=== PATIENT | female | born 1940 | race Caucasian/White ===

== ENCOUNTER → 2023-09-17 13:31 | Outpatient (REF) | payer MEDICARE, SELFPAY | LOC: HWRAD 13:31 | PROVIDERS: ATTENDING PHYSICIAN Family Medicine | DX: K43.9 Ventral hernia without obstruction or gangrene (principal) | CPT/HCPCS: 74176 ==

== ENCOUNTER → 2023-10-01 15:18 | Outpatient (REF) | payer MEDICARE, SELFPAY ==
[2023-10-01 16:52] LABS: % Basophils 0.9 % (0-2); % Eosinophils 3.8 % (0-6); % Immature Granulocytes 0.4 % (0-0.5); % Lymphocytes 13.8 % (20.5-51.1); % Monocytes 9.8 % (1.7-9.3); % Neutrophils 71.3 % (42.2-75.2); Absolute Basophils 0.1 10^3/uL (0-0.2); Absolute Eosinophils 0.4 10^3/uL (0-0.7); Absolute Lymphocytes 1.3 10^3/uL (1.2-3.4); Absolute Monocytes 0.9 10^3/uL (0.1-0.6); Absolute Neutrophils 6.5 10^3/uL (1.4-6.5); Hemoglobin 7.5 g/dL (12.0-16.0); Mean Corpuscular Hgb 21.7 pg (27.0-31.0); Mean Corpuscular Volume 72.3 fL (81.0-99.0); Mean Platelet Volume 8.6 fL (7.4-10.4); Nucleated Red Blood Cells % 0 %; Platelet Count 518 10^3/uL (130-400); Red Blood Cell Count 3.46 10^6/uL (4.20-5.40); Red Cell Dist. Width 16.4 % (11.5-14.5); White Blood Cell Count 9.2 10^3/uL (4.8-10.8)
[2023-10-01 17:02] LABS: Erythrocyte Sed Rate 1 mm/hour (0-20)
[2023-10-01 17:06] LABS: ALT (SGPT) 12 U/L (0-35); AST (SGOT) 21 U/L (14-36); Albumin 3.9 g/dl (3.5-5.0); Alkaline Phosphatase 68 U/L (38-126); Blood Urea Nitrogen 14 mg/dl (7-17); Calcium 9.3 mg/dl (8.4-10.2); Carbon Dioxide 31 mmol/L (22-30); Chloride 97 mmol/L (98-107); Glucose 78 mg/dl (70-99); Lipase 250 U/L (23-300); Potassium 4.1 mmol/L (3.5-5.1); Sodium 133 mmol/L (135-145); Total Bilirubin 0.1 mg/dl (0.2-1.3); Total Protein 6.4 g/dl (6.3-8.2); eGFR > 60.00
[2023-10-01 17:15] LABS: PT 16.2 Sec (11.4-14.6)
[2023-10-01 17:36] LABS: TSH 2.34 uIU/ml (0.47-4.68)
== END ==
LOC: REG 15:18
PROVIDERS: ATTENDING PHYSICIAN Family Medicine
DX: R10.84 Generalized abdominal pain (principal); R53.83 Other fatigue
CPT/HCPCS: 36415; 80053; 83690; 84443; 85025; 85610; 85652

== ENCOUNTER 2023-10-09 17:59 | Inpatient (IN) | payer MEDICARE, SELFPAY ==
[2023-10-09] VITALS (7 sets, daily range): BP systolic 124–162; BP diastolic 50–82; BMI 23.9
[2023-10-09 15:14] LABS: PT 15.3 Sec (11.4-14.6)
[2023-10-09 15:15] LABS: APTT 28.2 Sec (23.4-35.0)
[2023-10-09 15:20] LABS: % Basophils 0.9 % (0-2); % Eosinophils 2.2 % (0-6); % Immature Granulocytes 0.3 % (0-0.5); % Lymphocytes 10.8 % (20.5-51.1); % Monocytes 8.3 % (1.7-9.3); % Neutrophils 77.7 % (42.2-75.2); Absolute Basophils 0.1 10^3/uL (0-0.2); Absolute Eosinophils 0.2 10^3/uL (0-0.7); Absolute Lymphocytes 1.1 10^3/uL (1.2-3.4); Absolute Monocytes 0.8 10^3/uL (0.1-0.6); Absolute Neutrophils 7.7 10^3/uL (1.4-6.5); Hemoglobin 6.9 g/dL (12.0-16.0); Mean Corp Hgb Conc. 29.6 g/dL (33.0-37.0); Mean Corpuscular Hgb 21.2 pg (27.0-31.0); Mean Corpuscular Volume 71.5 fL (81.0-99.0); Mean Platelet Volume 8.2 fL (7.4-10.4); Nucleated Red Blood Cells % 0 %; Platelet Count 538 10^3/uL (130-400); Red Blood Cell Count 3.26 10^6/uL (4.20-5.40); Red Cell Dist. Width 16.2 % (11.5-14.5); White Blood Cell Count 9.9 10^3/uL (4.8-10.8)
[2023-10-09 15:27] LABS: Chloride 99 mmol/L (98-107)
[2023-10-09 15:29] LABS: ALT (SGPT) 12 U/L (0-35); AST (SGOT) 22 U/L (14-36); Albumin 3.6 g/dl (3.5-5.0); Alkaline Phosphatase 59 U/L (38-126); Blood Urea Nitrogen 20 mg/dl (7-17); Calcium 9.1 mg/dl (8.4-10.2); Carbon Dioxide 29 mmol/L (22-30); Glucose 103 mg/dl (70-99); Potassium 4.2 mmol/L (3.5-5.1); Sodium 135 mmol/L (135-145); Total Bilirubin 0.2 mg/dl (0.2-1.3); Total Protein 6.2 g/dl (6.3-8.2); eGFR 55.55
--- NOTE | 2023-10-09 16:48 | ED.GENMED ---
History of Present Illness
General
Chief Complaint: Abnormal Lab Value
Time Seen by Provider: 10/09/23 16:48
History of Present Illness
History of Present Illness:
HPI: The patient had outpatient blood work that showed a low hemoglobin. She had been having abdominal pain for the past 6 months but was rather vague about it. An outpatient CT showed some ventral wall hernias but otherwise was relatively
unrevealing so PMD then had performed last week. Family was called last night due to the hemoglobin of 7.5. At that time the [id number] held the Eliquis (history of A-fib).
EXAM:
GENERAL: Well appearing in no distress
HEENT: Moist oral mucosa, hard of hearing
CARDIOVASCULAR: No murmurs, normal heart rate, regular rhythm, No chest wall tenderness
PULMONARY: No respiratory distress, breath sounds are clear and equal
ABDOMEN: Soft with no peritoneal signs, no tenderness, palpable ventral wall hernia, the rectal vault for the most part was empty, there was no gross blood, I did Hemoccult test the scant amount of stool that I obtained from the rectal vault which
was trace heme positive
NEUROLOGIC: Fair strength all extremities, no coordination deficits
PSYCHIATRIC: The patient appears to have some mild cognitive deficits with impaired memory
EXTREMITIES: Nontender, no edema, moves all extremities equally
SKIN: No rash, no lesions, appears somewhat pale
TIME OF INITIAL ENCOUNTER: 5 PM
NUMBER AND COMPLEXITY OF PROBLEMS ADDRESSED AT THE ENCOUNTER
� Chronic conditions affecting care: Atrial fibrillation
� Acute Exacerbation and/or Progression of Chronic Illness: This is an acute problem
� Differential Diagnosis includes: Upper GI bleed, lower GI bleed, anemia, blood loss from Eliquis use
AMOUNT AND/OR COMPLEXITY OF DATA TO BE REVIEWED AND ANALYZED
� I performed an independent evaluation of and my interpretation is:
EKG:
CT:
X-rays:
Laboratory Studies: White count 9.9, hemoglobin 6.9, platelets 538, chemistries unremarkable, BUN 20, bicarb normal
Other:
� Review of other/old records: Hemoglobin on 10/01/2023 was 7.5 which was down from 12.2 on 09/02/2022
� Clinical information was obtained by an independent historian: I spoke to son and [id number] at bedside
� Prescriptions/Medications Considered but not given:
� Further testing considered but not performed:
RISK OF COMPLICATIONS AND/OR MORBIDITY OR MORTALITY OF PATIENT MANAGEMENT
� Social determinants of health affecting care: Lives at home
� Discussion with other providers: Hospitalist, Dr. Pina, for admission at 5:20 PM
� Escalation of care including admission/observation vs risk of discharge considered: She is sinus on the monitor. Hemoglobin dropped significantly over the past year. Daughter held Eliquis starting yesterday. Will give blood
transfusion�son signed informed consent. Trace if any heme positive stool.
Phy Exam
Physical Exam
Physical Exam:
See HPI
Course
Orders/Labs/Results
Orders:
Orders
10/09/23 14:52
Type+Screen Urgent
Complete Blood Count/With Diff Urgent
Comprehensive Metabolic Panel Urgent
Ferritin Urgent
Comment: ADD ON
Iron Urgent
PTT Urgent
Prothrombin Time Urgent
Total Iron Binding Urgent
10/09/23 Dinner
Clear Liquid
At Your Request: Limited, Child Therapist Required
10/09/23 17:01
* Blood Bank Products Urgent
Blood Bank Products: *Packed RBC Leuko(PRBC's)
Quantity: 2
Transfuse Today: Yes
Reason: Anemia
Comment: son signed
10/09/23 17:02
Add On- LAB Urgent
Tests Added?: iron, TIBC, ferritin
10/09/23 17:46
Admit/Transfer Patient As Directed
Co-Sign Provider:
Level of Care: Inpatient admission
Assign to:: Medical/Surgical
Physician / Group: santosh
Diagnosis: microcytic anemia
Reason for Hospitalization: microcytic anemia
Expected length of stay greater than two midnights?: Yes
ELOS- Estimated Length of Stay in days: 2
I certify the patient meets the requirements for IP care: Yes
Code Status As Directed
Resuscitation Status: Do not resuscitate
Reached after discussion with pt or family/Healthcare POA: Yes
DNR Bracelet Application ONCE
PRN Pain Medication Management As Directed
May give lesser potent ordered pain med per pt: Yes
preference::
Protocol:: Medication orders for pain may be administered in a
manner that supports deferring to patient preference
when the pt is:
- Requesting an ordered lesser potent pain medication.
Least to most potent pain medications are defined
as: acetaminophen < NSAID < tramadol < opioids
(morphine, oxycodone, hydromorphone).
- Requesting a lesser dose of the same medication IF
ORDERED.
- Requesting a less intrusive route of administration
if both routes are prescribed by the provider (PO <
IV).
10/09/23 20:00
Pantoprazole [Protonix IV] 40 mg IV BID
Abnormal Lab Results
10/09/23
14:52
RBC 3.26 L 10^6/uL
(4.20-5.40)
Hgb 6.9 L* g/dL
(12.0-16.0)
Hct 23.0 L %
(37.0-47.0)
MCV 71.5 L fL
(81.0-99.0)
MCH 21.2 L pg
(27.0-31.0)
MCHC 29.6 L g/dL
(33.0-37.0)
RDW 16.2 H %
(11.5-14.5)
Plt Count 538 H 10^3/uL
(130-400)
Absolute Neuts (auto) 7.7 H 10^3/uL
(1.4-6.5)
Absolute Lymphs (auto) 1.1 L 10^3/uL
(1.2-3.4)
Absolute Monos (auto) 0.8 H 10^3/uL
(0.1-0.6)
Neutrophils % 77.7 H %
(42.2-75.2)
Lymphocytes % 10.8 L %
(20.5-51.1)
PT 15.3 H Sec
(11.4-14.6)
BUN 20 H mg/dl
(7-17)
Glucose 103 H mg/dl
(70-99)
Iron < 20 L ug/dl
(37-170)
Ferritin 4.4 L ng/ml
(11.1-264.0)
Total Protein 6.2 L g/dl
(6.3-8.2)
Crossmatch IS Only See Detail
10/09/23 14:52
10/09/23 14:52
Vital Signs
Initial and Last Documented VS:
Initial Vital Signs
Temp Pulse Resp BP Pulse Ox
98.6 F 99 16 124/61 97
10/09/23 14:41 10/09/23 14:41 10/09/23 14:41 10/09/23 14:41 10/09/23 14:41
Last Documented Vital Signs
Temp Pulse Resp BP Pulse Ox
98.6 F 88 21 134/58 94
10/09/23 14:41 10/09/23 17:42 10/09/23 17:42 10/09/23 17:42 10/09/23 17:42
*Critical Care Note
Total Time (30-74mins, 75-104mins- exclusive of procedures): Not Applicable
ED Attending Note
-
Portions of this chart may have been created with voice recognition software.� Occasional wrong word or��sound alike� substitutions may have occurred due to the inherent limitations of voice recognition software.
Discharge Plan
Departure
Patient Disposition: Admit
Date of Disposition: 10/09/23
Time of Disposition: 17:15
Presentation/result/management discussed w/ accepting MD/DO: Hospitalist
Discharge Problem:
Anemia
Interventions
Interventions:
*Risk Screen - Suicide Last Done: 10/09/23 14:35
*General Assessment Last Done: 10/09/23 14:35
*Neglect/Abuse Screening Last Done: 10/09/23 14:35
ED- Fall Risk Assessment Last Done: 10/09/23 17:47
*ED COVID-19 Vaccine History Last Done: 10/09/23 14:35
[2023-10-09 17:43] LABS: Total Iron Binding Capacity 441 ug/dl (265-497)
--- NOTE | 2023-10-09 17:49 | HPS.HSE ---
Family Physician
-
Family Physician: Kt Lee
Chief Complaint
-
anemia
History of Present Illness
82-year-old female past medical history of paroxysmal atrial fibrillation until recently on Eliquis, hypertension, bowel obstruction status post bowel resection 20 years ago, GERD, presenting for anemia.
Patient 1 year ago and since that time particularly over the past 6 months patient has been having intermittent abdominal pain described as behind the umbilicus and sometimes the epigastric region. Pain is sometimes described as
pressure and sometimes sharp. Not related to eating or movement. Patient is lost 40 pounds in the past year. No changes in bowel movements. No blood in the stool or black stool, diarrhea or constipation or nausea or vomiting. Patient has never
had GI bleeding before.
Patient has recently been feeling very fatigued with occasional dizziness. No syncope. Sometimes she is short of breath. Denies any chest pain.
She saw her primary care physician and had outpatient CT scan that showed ventral hernias so primary care physician ordered lab work which showed hemoglobin 7.5. Family was called about results yesterday and told to come to the emergency room.
No family history of GI problems or colon/GI cancer
She drinks wine occasionally. He is a former smoker.
Medical History
Past Medical History
Past Medical History: Reports Other (paroxysmal atrial fibrillation until recently on Eliquis, hypertension, bowel obstruction status post bowel resection 20 years ago, GERD, )
Past Surgical History: Reports Other ( bowel resection)
Social History
Tobacco: Former Smoker
Alcohol: Occasional
Drug: None
Family History
Family History: Not pertinent
Allergies / Home Medications
Allergies reflects when Allergies were last updated in [employer].
Home Medications with original date entered in [employer]
Allergy/Medication List:
Allergies
Allergy/AdvReac Type Severity Reaction Status Date / Time
Penicillins Allergy Swelling Verified 10/09/23 14:40
shellfish derived Allergy Unknown Verified 10/09/23 14:40
Sulfa (Sulfonamide Allergy Swelling Verified 10/09/23 14:40
Antibiotics)
contrast Allergy Unknown Uncoded 10/09/23 14:40
Home Medications
acetaminophen 500 mg tablet (Tylenol Extra Strength) 500 mg PO Q6HPRN PRN mild pain 10/09/23
aspirin 325 mg tablet 325 mg PO DAILYPRN PRN mild pain 10/09/23
bismuth subsalicylate 262 mg tablet (Kaopectate (bismuth subsalicylate)) 524 mg PO DAILY 10/09/23
calcium carbonate (Tums) 300 mg PO DAILY 10/09/23
diltiazem HCl 120 mg capsule,24 hr,extended release 120 mg PO DAILY 10/09/23
famotidine 40 mg tablet 40 mg PO DAILY 10/09/23
flecainide 50 mg tablet 50 mg PO Q12H 10/09/23
omeprazole 40 mg capsule,delayed release 40 mg PO DAILY 10/09/23
trazodone 100 mg tablet 100 mg PO HSPRN PRN sleep 10/09/23
Review of Systems
-
History Source: Patient
A 12 point ROS was completed and negative except as noted: Yes
Constitutional: Reports No Symptoms
EENT: Reports No Symptoms
Respiratory: Reports No Symptoms
Cardiac: Reports No Symptoms
Abdomen/GI: Reports See HPI
: Reports No Symptoms
Musculoskeletal: Reports No Symptoms
Skin: Reports No Symptoms
Neurological: Reports No Symptoms
Endocrine: Reports No Symptoms
Hematologic/Lymphatic: Reports No Symptoms
Psych: Reports No Symptoms
Physical Exam
Vital Signs
Vital Signs
Temp Pulse Resp BP Pulse Ox
98.6 F 88 21 134/58 94
10/09/23 14:41 10/09/23 17:42 10/09/23 17:42 10/09/23 17:42 10/09/23 17:42
Physical Exam
General: Well Developed, Well Nourished and No Apparent Distress
HEENT: NormoCephalic, Moist mucous membranes and Atraumatic
Respiratory: Clear
Cardiac: S1/S2 and Regular Rhythm; No Murmur or Rub
GI: Soft, Non Tender, Normal Bowel Sounds and Distended; No Organomegaly
Rectal: Deferred by Provider
Musculoskeletal: No Clubbing, No Cyanosis and No Edema
Skin: No Rash
Neuro: Nonfocal/grossly intact
Laboratory Results
-
10/09/23 14:52
10/09/23 14:52
Laboratory Results
PT 15.3 Sec (11.4-14.6) H 10/09/23 14:52
INR 1.20 10/09/23 14:52
APTT 28.2 Sec (23.4-35.0) 10/09/23 14:52
Total Bilirubin 0.2 mg/dl (0.2-1.3) 10/09/23 14:52
AST 22 U/L (14-36) 10/09/23 14:52
ALT 12 U/L (0-35) 10/09/23 14:52
Alkaline Phosphatase 59 U/L (38-126) 10/09/23 14:52
Data Reviewed
-
Lab Data: Labs Reviewed by me
Old Records: Reviewed
Impression/Plan
-
IMPRESSION:
PLAN:
# Acute symptomatic microcytic anemia/abdominal pain/weight loss concerning for potential GI malignancy
-Hemoglobin 6.9 down from 12.2 last year
-CT abdomen pelvis from 09/16 shows no acute intra-abdominal abnormalities, several small fat-containing ventral hernias, prominent duodenal diverticulum
-Trace heme positive stool but for the most part rectal vault was empty
-Check iron studies, B12 and folate
-2 units blood transfusion
-Protonix 40 IV twice daily
-Clear liquid diet, n.p.o. past midnight
-Hold Eliquis
-GI consulted
Paroxysmal atrial fibrillation
-Continue flecainide, diltiazem
-Eliquis stopped since patient found out about anemia
Essential hypertension
GERD
-Continue PPI
History of small bowel obstruction status post bowel resection 20 years ago
Insomnia
-Continue trazodone
DNR/DNI
DVT prophylaxis�SCDs
Clear liquid diet, n.p.o. past midnight
[2023-10-09 17:52] LABS: Iron < 20 ug/dl (37-170)
[2023-10-09 18:31] LABS: Ferritin 4.4 ng/ml (11.1-264.0)
[2023-10-09] MEDS: NSS (PRESERVATIVE FREE) 10 ML IV (21:12)
[2023-10-09] MEDS: TAMBOCOR 50 MG PO (21:12)
[2023-10-09] MEDS: PROTONIX IV 40 MG IV (21:12)
--- NOTE | 2023-10-09 21:30 | PTCARENOTE ---
Addendum entered by Vani Grewal RN 10/10/23 04:24:
2 units of RBC were transfused without any issues.
Original Note:
Pt admitted to 4E. AAOx3, forgetful and anxious at times. Irregular heart sounds. VSS. Traces of BLLE edema. Lungs WNL. Abd round and firm. OOBx1. Pt will be receiving 2 unit of RBC's. ford alarm in place.
[2023-10-10 00:18] VITALS: BP 139/82
[2023-10-10 00:25] VITALS: BP 134/80
[2023-10-10 00:46] VITALS: BP 143/83
[2023-10-10] MEDS: DESYREL 100 MG PO (00:49)
[2023-10-10 01:05] LABS: Vitamin B12 203 pg/ml (239-931)
[2023-10-10] MEDS: TYLENOL 500 MG PO (03:28)
[2023-10-10 03:45] VITALS: BP 150/88
[2023-10-10 07:08] VITALS: BP 149/65
[2023-10-10] MEDS: NSS (PRESERVATIVE FREE) 10 ML IV (08:04)
[2023-10-10] MEDS: PEPCID 20 MG PO (08:04)
[2023-10-10] MEDS: PROTONIX IV 40 MG IV (08:04)
[2023-10-10] MEDS: TUMS EX (EXTRA STRENGTH) CHEWABLE 1 TABLET PO (08:05)
[2023-10-10] MEDS: TAMBOCOR 50 MG PO (08:05)
[2023-10-10] MEDS: CARDIZEM CD 120 MG PO (08:05)
[2023-10-10 08:35] LABS: % Eosinophils 5.7 % (0-6); % Immature Granulocytes 0.4 % (0-0.5); % Lymphocytes 13.6 % (20.5-51.1); % Monocytes 10.2 % (1.7-9.3); % Neutrophils 69.1 % (42.2-75.2); Absolute Basophils 0.1 10^3/uL (0-0.2); Absolute Eosinophils 0.5 10^3/uL (0-0.7); Absolute Lymphocytes 1.2 10^3/uL (1.2-3.4); Absolute Monocytes 0.9 10^3/uL (0.1-0.6); Absolute Neutrophils 6.2 10^3/uL (1.4-6.5); Hematocrit 30.9 % (37.0-47.0); Mean Corp Hgb Conc. 32.4 g/dL (33.0-37.0); Mean Corpuscular Hgb 24.6 pg (27.0-31.0); Mean Corpuscular Volume 76.1 fL (81.0-99.0); Mean Platelet Volume 8.1 fL (7.4-10.4); Nucleated Red Blood Cells % 0 %; Platelet Count 431 10^3/uL (130-400); Red Blood Cell Count 4.06 10^6/uL (4.20-5.40); Red Cell Dist. Width 17.2 % (11.5-14.5); White Blood Cell Count 8.9 10^3/uL (4.8-10.8)
[2023-10-10 08:42] LABS: ALT (SGPT) 12 U/L (0-35); AST (SGOT) 21 U/L (14-36); Albumin 3.5 g/dl (3.5-5.0); Alkaline Phosphatase 63 U/L (38-126); Blood Urea Nitrogen 12 mg/dl (7-17); Calcium 9.2 mg/dl (8.4-10.2); Carbon Dioxide 32 mmol/L (22-30); Chloride 100 mmol/L (98-107); Estimated Creatinine Clearance 38 ml/min; Glucose 81 mg/dl (70-99); Potassium 3.8 mmol/L (3.5-5.1); Sodium 137 mmol/L (135-145); Total Bilirubin 0.4 mg/dl (0.2-1.3); Total Protein 5.9 g/dl (6.3-8.2); eGFR > 60.00
--- NOTE | 2023-10-10 09:34 | W.PN.HOSP.TC ---
Addendum entered and electronically signed by Freddie Goodwin MD 10/10/23 14:08:
anemia concern for gi losses. s/p 2u prbc. seen by gi rec outpt egd.
states weight loss is intentional.
has been eating well
updaet that she might need to ztay if GI changes their mind on the need for scope.
Original Note:
Today's Communication/Plan
-
Patient awaiting consult by GI, starting her in Iron IV infusion and Vitamin B12 supplementation. Continue other medication.
Assessment / Plan
Assessment / Plan
82-year-old female past medical history of paroxysmal atrial fibrillation until recently on Eliquis, hypertension, bowel obstruction status post bowel resection 20 years ago, GERD, presented for acute anemia. Patient feels better after getting 2
units of blood. Awaiting consult by GI to see if she needs any imaging done while at the hospital for her potential bleed.
PLAN:
# Acute symptomatic microcytic anemia/abdominal pain/weight loss concerning for potential GI malignancy
-Hemoglobin 6.9 down from 12.2 last year
-CT abdomen pelvis from 09/16 shows no acute intra-abdominal abnormalities, several small fat-containing ventral hernias, prominent duodenal diverticulum
-Trace heme positive stool but for the most part rectal vault was empty
-Iron Studies-> Iron (<20), Ferritin (4.4), TIBC (441)
-B12 (203)- replete
-2 units blood transfusion
-Protonix 40 IV twice daily
-Clear liquid diet, n.p.o. past midnight
-Hold Eliquis
-GI consulted, awaiting input
Paroxysmal atrial fibrillation
-Continue flecainide, diltiazem
-Eliquis stopped since patient found out about anemia
Essential hypertension
-Not taking any medication at the moment
GERD
-IV PPI
Vitamin B12 Deficiency-
-Start Repletion with PO supplementation
Iron Deficiency-
-Start Repletion with IV Iron
Insomnia
-Continue trazodone
DNR/DNI
DVT prophylaxis�SCDs
Clear liquid diet
Anticipated Discharge: Within 24 hours
Subjective/Interval History
-
Date of Service: October 10, 2023
Patient has been feeling well, wants to leave the hospital as soon as possible. Frustrated because she doesn't know why she's still in the hospital.
Objective Data
-
Labs:
Laboratory Results
10/10/23
07:55
WBC 8.9
Hgb 10.0 L D
Hct 30.9 L
Plt Count 431 H
Sodium 137
Potassium 3.8
Chloride 100
Carbon Dioxide 32 H
BUN 12
Creatinine 0.8
Glucose 81
Calcium 9.2
Total Bilirubin 0.4
AST 21
ALT 12
Alkaline Phosphatase 63
Vital Signs:
Vital Signs
Temp Pulse Resp BP Pulse Ox
98.2 F 82 20 149/65 95
10/10/23 07:08 10/10/23 08:05 10/10/23 07:08 10/10/23 08:05 10/10/23 07:08
I&O
10/09/23 10/10/23 10/11/23
06:59 06:59 06:59
Intake Total 740 / 740
Balance 740 / 740
Review of Systems
-
History Source: Patient
Constitutional: Denies Fever or Fatigue
Respiratory: Denies Cough or Trouble Breathing
Cardiac: Denies Chest Pain, Diaphoresis or Palpitations
Abdomen/GI: Reports Black Stools (Said she has had darker colored stools for the past few months); Denies Abdominal Pain, Nausea, Vomiting, Diarrhea or Constipated
Neuro: Denies Dizzy, Headache or Weakness
Physical Exam
-
General: Well Developed, Well Nourished, No Apparent Distress and Comfortable
Respiratory: Clear to Auscultation and Non Labored Respirations
Cardiac: Regular Rhythm and S1/S2
GI: Soft, Nontender, Nondistended and Normal Bowel Sounds
Musculoskeletal: No Clubbing, No Cyanosis and No Edema
Skin: Warm and Dry
Neuro: Awake, Alert, Oriented, AO x 3 and No Motor Deficits
Psych: Agitated
Data Reviewed
-
CT Scan: Report Reviewed by me, Discussed with Physician and Discussed with Patient
Labs: Labs Reviewed by me, Discussed with Physician and Discussed with Patient
--- NOTE | 2023-10-10 10:29 | CON.GI ---
Addendum entered and electronically signed by Sebas English MD 10/10/23 14:26:
I saw and examined the patient.
The SENIOR INTERNAL AUDITOR's note was reviewed and I agree with the note.
-- Acute microcytic iron deficient anemia/abdominal pain/weight loss. Denies any overt GI bleeding. Trace heme positive stool in ED. No prior EGD. Last colonoscopy over 20-30 yrs back-unable to recall details
-- A-fib- was on Eliquis
-- History of bowel obstruction s/p bowel resection 20 yrs back
plan
I had a long discussion with the patient about endoscopic workup for anemia including EGD/colonoscopy. Discussed about inpatient versus outpatient workup. Patient claims she does not want to have this testing as inpatient and will consider it as
outpatient. She really wants to go home today.
If patient to be discharged we will strongly recommend follow-up with GI as outpatient to arrange anemia workup
Iron supplementation
Medical team to consider benefit vs risks in restarting Eliquis
Original Note:
Medical History
Chief Complaint / HPI
Chief Complaint: Abdominal pain, low Hgb on outpatient labs
History of Present Illness:
Patient is 82-year-old female with past medical history of GERD, paroxysmal atrial fibrillation (last dose of Eliquis 2 days ago), hypertension, bowel obstruction s/p bowel resection 20 years ago (is not aware about the pathology) who presented with
low hemoglobin on outpatient labs. Patient also had an intermittent epigastric pain which has been going on for couple of months. Patient does not report any hematemesis, melena, hematochezia. No nausea or vomiting. Has occasional heartburns which
she takes PPI as needed. She drinks a glass of wine 4 nights a week and is a past smoker. Last bowel movement was an hour ago which was nonbloody and had normal consistency. Patient denies any history of prior GI bleeding. Outpatient lab work
showed hemoglobin 7.5 for which she was referred to the ED. Patient is status post 1 unit of packed red blood cells and her posttransfusion hemoglobin stands at 10. Denies lightheadedness, dizziness, chest pain, shortness of breath.
Past Medical History
Past Medical History: Arrhythmias, GERD and HTN
Past Surgical History: Bowel Resection
Social History
Tobacco: Former Smoker
Alcohol: Occasional (4 nights/ week)
Drug: None
Family History
Family History: Reviewed & Not Pertinent
Allergies / Home Medications
Allergy/AdvReac Type Severity Reaction Status Date / Time
Iodinated Contrast Media Allergy Unknown Verified 10/09/23 18:00
Penicillins Allergy Swelling Verified 10/09/23 14:40
shellfish derived Allergy Unknown Verified 10/09/23 14:40
Sulfa (Sulfonamide Allergy Swelling Verified 10/09/23 14:40
Antibiotics)
�Medication �Instructions �Recorded
acetaminophen 500 mg tablet 500 mg PO Q6HPRN PRN mild pain 10/09/23
(Tylenol Extra Strength)
aspirin 325 mg tablet 325 mg PO DAILYPRN PRN mild pain 10/09/23
bismuth subsalicylate 262 mg 524 mg PO DAILY Gastrointestinal 10/09/23
tablet (Kaopectate (bismuth Issue
subsalicylate))
calcium carbonate (Tums) 300 mg PO DAILY Gastrointestinal 10/09/23
Issue
diltiazem HCl 120 mg capsule,24 120 mg PO DAILY Blood Pressure 10/09/23
hr,extended release
famotidine 40 mg tablet 40 mg PO DAILY Gastrointestinal 10/09/23
Issue
flecainide 50 mg tablet 50 mg PO Q12H Arrhythmia 10/09/23
omeprazole 40 mg capsule,delayed 40 mg PO DAILY Gastrointestinal 10/09/23
release Issue
trazodone 100 mg tablet 100 mg PO HSPRN PRN sleep 10/09/23
Review of Systems
-
History Source: Patient
Abdomen/GI: Denies Abdominal Pain, Nausea, Vomiting, Diarrhea, Bloody Stools or Black Stools
Neurological: Denies Dizzy or Headache
Vital Signs
Temp Pulse Resp BP Pulse Ox
98.2 F 82 20 149/65 95
10/10/23 07:08 10/10/23 08:05 10/10/23 07:08 10/10/23 08:05 10/10/23 07:08
Physical Exam
Exam
General: Well Developed and No Apparent Distress
HEENT: Normocephalic, Anicteric and Moist Mucous Membranes
Respiratory: Clear
Cardiac: S1/S2
GI: Soft, Non Tender, Non Distended and Normal Bowel Sounds
Neuro: Awake, Alert, Oriented and AO x 3
Results
WBC 8.9 10^3/uL (4.8-10.8) 10/10/23 07:55
Hgb 10.0 g/dL (12.0-16.0) L D 10/10/23 07:55
Hct 30.9 % (37.0-47.0) L 10/10/23 07:55
MCV 76.1 fL (81.0-99.0) L 10/10/23 07:55
Plt Count 431 10^3/uL (130-400) H 10/10/23 07:55
Absolute Neuts (auto) 6.2 10^3/uL (1.4-6.5) 10/10/23 07:55
PT 15.3 Sec (11.4-14.6) H 10/09/23 14:52
INR 1.20 10/09/23 14:52
APTT 28.2 Sec (23.4-35.0) 10/09/23 14:52
Sodium 137 mmol/L (135-145) 10/10/23 07:55
Potassium 3.8 mmol/L (3.5-5.1) 10/10/23 07:55
Chloride 100 mmol/L (98-107) 10/10/23 07:55
Carbon Dioxide 32 mmol/L (22-30) H 10/10/23 07:55
BUN 12 mg/dl (7-17) 10/10/23 07:55
Creatinine 0.8 mg/dL (0.6-1.0) 10/10/23 07:55
Calcium 9.2 mg/dl (8.4-10.2) 10/10/23 07:55
Total Bilirubin 0.4 mg/dl (0.2-1.3) 10/10/23 07:55
AST 21 U/L (14-36) 10/10/23 07:55
ALT 12 U/L (0-35) 10/10/23 07:55
Alkaline Phosphatase 63 U/L (38-126) 10/10/23 07:55
Diagnostic Image Results:
Prior GI Procedures:
EGD:
Colonoscopy:
Assessment / Plan
-
Patient is 82-year-old female with past medical history of GERD, paroxysmal atrial fibrillation (last dose of Eliquis 2 days ago), hypertension, bowel obstruction s/p bowel resection 20 years ago (is not aware about the pathology) who presented with
hemoglobin of 7.5 on outpatient labs. Patient also had an intermittent epigastric pain which has been going on for couple of months. Occult blood was trace positive in ED.
At the time of consultation, patient denies any abdominal pain, nausea or vomiting. Patient has not noticed any hematemesis, melena, hematochezia. Last bowel movement was an hour ago which was nonbloody and had normal consistency. Patient is status
post 1 unit of packed red blood cells and her posttransfusion hemoglobin stands at 10. She is hemodynamically stable and denies lightheadedness, dizziness, chest pain, shortness of breath. No TTP.
Recommendations:
Patient has no signs of overt GI bleeding and is hemodynamically stable and asymptomatic. Endoscopy can be done as outpatient. If patient remains stable today, she can be discharged from GI standpoint.
-
-
Thank you for consultation and allowing me to participate in the patient's care. Please call the application support developer GI physician during the after hours with any questions or concerns.
[2023-10-10] MEDS: FOLTX 1 TABLET PO (12:17)
[2023-10-10 14:15] VITALS: BMI 23.9
[2023-10-10] MEDS: FERRLECIT 110 MG IV (14:17)
--- NOTE | 2023-10-10 14:21 | W.DCSUMMARY ---
Documented by User: Jonnie Nolasco MD, Resident 10/10/23 16:37
Discharge Summary
Discharge Data
Date of Admission: 10/09/23
Date of Discharge: 10/10/23
-
Pending Results: No
Hospital Course
Admission Diagnosis-
Acute symptomatic microcytic anemia
Conditions Prior to Admission-
Paroxysmal atrial fibrillation until recently on Eliquis
Hypertension
Bowel obstruction status post bowel resection 20 years ago
GERD
Admission Course-
82-year-old female past medical history of paroxysmal atrial fibrillation until recently on Eliquis, hypertension, bowel obstruction status post bowel resection 20 years ago, GERD, presented to the ED with acute onset anemia. Patient had been having
intermittent epigastric pain and darker colored stool for a couple of days now. She had labs done at with her primary care which showed low hemoglobin levels. This prompted her to come to the ED. Patient was not complaining of any symptoms in the ED
but her heme-occult test was positive. Patient received 2 units of blood via transfusion and was admitted for further monitoring.
Patient was feeling fine the next morning and insisted on going home multiple times. Patient was found to be iron and vitamin B12 deficient, so was started on supplementation. Patient was seen by GI who said that she is hemodynamically stable enough
to see GI as an outpatient for further workup and imaging. Patient insisted on going home and was cleared for discharge with instructions to continue on a low residue diet and see GI specialist within the week. Patient's Eliquis was continued to be
held at this time.
Patient's other medical conditions continued to be treated with her home medications during her hospital stay.
Discharge Plan
-
Patient Disposition: Home (Routine Discharge)
Discharge Diagnosis/Procedures: Acute symptomatic microcytic anemia
Condition: Fair
Diet: Low Residue
Activity: As tolerated
Driving Restrictions: As prior to admission
Bathing Restrictions: None
Referrals:
Sebas English MD [Active] - in less than 1 week (Follow up with GI Specialist next week)
Kt Lee MD [Family Provider] -
Additional Discharge Medication Instructions: Check with Primary and GI about restarting Eliquis and Aspirin
Prescriptions:
New
WesTab Max 2.5-25-2 mg Tablet
1 tab PO DAILY 30 Days Qty: 30 0RF
Continued
famotidine 40 mg Tablet
40 mg PO DAILY
Tums 300 mg (750 mg) Tablet,Chewable
300 mg PO DAILY
omeprazole 40 mg Capsule,Delayed Release(Dr/Ec)
40 mg PO DAILY
acetaminophen [Tylenol Extra Strength] 500 mg Tablet
500 mg PO Q6HPRN PRN (Reason: mild pain)
trazodone 100 mg Tablet
100 mg PO HSPRN PRN (Reason: sleep)
diltiazem HCl 120 mg Capsule,Extended Release 24 Hr
120 mg PO DAILY
flecainide 50 mg Tablet
50 mg PO Q12H
Kaopectate (bismuth subsalicy) 262 mg Tablet
524 mg PO DAILY
Discontinued
aspirin 325 mg Tablet
325 mg PO DAILYPRN PRN (Reason: mild pain)
Discharge Orders:
Discharge Patient (As Directed); Ordered 10/10/23
Ordered By: Jonnie Nolasco
Discharge Date and Time
Print Language: SAMMARINESE

Documented by User: Freddie Goodwin MD 10/10/23 16:39
Discharge Summary
Discharge Data
Date of Admission: 10/09/23
Date of Discharge: 10/10/23
Discharge Plan
-
Patient Disposition: Home (Routine Discharge)
Discharge Diagnosis/Procedures: Acute symptomatic microcytic anemia
Condition: Fair
Diet: Low Residue
Activity: As tolerated
Driving Restrictions: As prior to admission
Bathing Restrictions: None
Referrals:
Sebas English MD [Active] - in less than 1 week (Follow up with GI Specialist next week)
Kt Lee MD [Family Provider] -
Additional Discharge Medication Instructions: Check with Primary and GI about restarting Eliquis and Aspirin
Prescriptions:
New
WesTab Max 2.5-25-2 mg Tablet
1 tab PO DAILY 30 Days Qty: 30 0RF
Continued
famotidine 40 mg Tablet
40 mg PO DAILY
Tums 300 mg (750 mg) Tablet,Chewable
300 mg PO DAILY
omeprazole 40 mg Capsule,Delayed Release(Dr/Ec)
40 mg PO DAILY
acetaminophen [Tylenol Extra Strength] 500 mg Tablet
500 mg PO Q6HPRN PRN (Reason: mild pain)
trazodone 100 mg Tablet
100 mg PO HSPRN PRN (Reason: sleep)
diltiazem HCl 120 mg Capsule,Extended Release 24 Hr
120 mg PO DAILY
flecainide 50 mg Tablet
50 mg PO Q12H
Kaopectate (bismuth subsalicy) 262 mg Tablet
524 mg PO DAILY
Discontinued
aspirin 325 mg Tablet
325 mg PO DAILYPRN PRN (Reason: mild pain)
Discharge Orders:
Discharge Patient (As Directed); Ordered 10/10/23
Ordered By: Jonnie Nolasco
Discharge Date and Time
Print Language: SAMMARINESE
--- NOTE | 2023-10-10 15:02 | CM ---
CM visited with Jimena briefly today. She had a blood transfusion and is feeling much better, looking forward to returning home today.
Jimena lives alone in a 2 story home with no entry steps. She has 3 bedrooms upstairs with 2 bathrooms; 14 stairs to the upstairs. Family is supportive, DIL will pick her up at [facility].
Plan: Discharge to home with no identified needs.
PCP: Kt Thomson
Pharm: [facility]
[2023-10-10 15:48] VITALS: BP 128/65
== END 2023-10-10 18:10 | disposition home or self-care (01) | DRG 812 ==
LOC: 4 EAST ACU 17:59
PROVIDERS: Emergency Medicine; ADMITTING PHYSICIAN Hospitalist; ATTENDING PHYSICIAN Hospitalist; CONSULT PHYSICIAN Internal Medicine Gastroenterology; EMERGENCY PHYSICIAN Emergency Medicine; FAMILY PHYSICIAN Family Medicine
PROC: 30233N1 Transfusion of Nonautologous Red Blood Cells into Peripheral Vein, Percutaneous Approach (ICD-10-PCS; 2023-10-10)
DX: D50.9 Iron deficiency anemia, unspecified (principal); R79.89 Other specified abnormal findings of blood chemistry; I48.0 Paroxysmal atrial fibrillation; G47.00 Insomnia, unspecified; K57.10 Diverticulosis of small intestine without perforation or abscess without bleeding; I10 Essential (primary) hypertension; E53.8 Deficiency of other specified B group vitamins; K21.9 Gastro-esophageal reflux disease without esophagitis; K43.9 Ventral hernia without obstruction or gangrene; Z66 Do not resuscitate; Z90.49 Acquired absence of other specified parts of digestive tract; Z87.19 Personal history of other diseases of the digestive system; Z87.891 Personal history of nicotine dependence; Z88.2 Allergy status to sulfonamides; Z88.0 Allergy status to penicillin; Z91.013 Allergy to seafood; Z79.82 Long term (current) use of aspirin; Z91.041 Radiographic dye allergy status; Z79.01 Long term (current) use of anticoagulants
CPT/HCPCS: 80053; 82607; 82728; 82746; 83540; 83550; 85025; 85610; 85730; 86850; 86900; 86901; 86920; 99284; J2916; P9016

== ENCOUNTER → 2023-12-01 15:15 | Outpatient (REF) | payer MEDICARE, SELFPAY ==
[2023-12-01 16:59] LABS: Hematocrit 33.3 % (37.0-47.0); Hemoglobin 10.1 g/dL (12.0-16.0); Mean Corp Hgb Conc. 30.3 g/dL (33.0-37.0); Mean Corpuscular Hgb 24.1 pg (27.0-31.0); Mean Corpuscular Volume 79.5 fL (81.0-99.0); Mean Platelet Volume 8.9 fL (7.4-10.4); Platelet Count 396 10^3/uL (130-400); Red Blood Cell Count 4.19 10^6/uL (4.20-5.40); Red Cell Dist. Width 19.3 % (11.5-14.5); White Blood Cell Count 11.3 10^3/uL (4.8-10.8)
[2023-12-01 17:23] LABS: ALT (SGPT) 18 U/L (0-35); AST (SGOT) 22 U/L (14-36); Albumin 3.9 g/dl (3.5-5.0); Alkaline Phosphatase 57 U/L (38-126); Blood Urea Nitrogen 20 mg/dl (7-17); Calcium 9.4 mg/dl (8.4-10.2); Carbon Dioxide 31 mmol/L (22-30); Chloride 97 mmol/L (98-107); Glucose 107 mg/dl (70-99); Iron 55 ug/dl (37-170); Potassium 4.8 mmol/L (3.5-5.1); Sodium 138 mmol/L (135-145); Total Bilirubin < 0.1 mg/dl (0.2-1.3); Total Protein 6.4 g/dl (6.3-8.2); eGFR > 60.00
[2023-12-01 17:32] LABS: Percent Saturation 12 % (20-50); Total Iron Binding Capacity 429 ug/dl (265-497)
== END ==
LOC: REG 15:15
PROVIDERS: ATTENDING PHYSICIAN Family Medicine
DX: D50.0 Iron deficiency anemia secondary to blood loss (chronic) (principal)
CPT/HCPCS: 36415; 80053; 83540; 83550; 85027

== ENCOUNTER → 2024-01-12 13:40 | Outpatient (REF) | payer MEDICARE, SELFPAY ==
[2024-01-12 15:26] LABS: Hematocrit 32.3 % (37.0-47.0); Hemoglobin 9.6 g/dL (12.0-16.0); Mean Corp Hgb Conc. 29.7 g/dL (33.0-37.0); Mean Corpuscular Hgb 25.1 pg (27.0-31.0); Mean Corpuscular Volume 84.6 fL (81.0-99.0); Mean Platelet Volume 8.4 fL (7.4-10.4); Platelet Count 350 10^3/uL (130-400); Red Blood Cell Count 3.82 10^6/uL (4.20-5.40); Red Cell Dist. Width 20.2 % (11.5-14.5)
[2024-01-12 15:42] LABS: ALT (SGPT) 15 U/L (0-35); AST (SGOT) 19 U/L (14-36); Albumin 3.5 g/dl (3.5-5.0); Alkaline Phosphatase 61 U/L (38-126); Blood Urea Nitrogen 22 mg/dl (7-17); Calcium 8.5 mg/dl (8.4-10.2); Carbon Dioxide 32 mmol/L (22-30); Chloride 95 mmol/L (98-107); Glucose 123 mg/dl (70-99); Iron 28 ug/dl (37-170); Potassium 3.8 mmol/L (3.5-5.1); Sodium 137 mmol/L (135-145); Total Bilirubin < 0.1 mg/dl (0.2-1.3); eGFR > 60.00
[2024-01-12 15:51] LABS: Percent Saturation 6 % (20-50); Total Iron Binding Capacity 403 ug/dl (265-497)
[2024-01-12 16:32] LABS: Vitamin B12 990 pg/ml (239-931)
== END ==
LOC: REG 13:40
PROVIDERS: ATTENDING PHYSICIAN Family Medicine
DX: D50.0 Iron deficiency anemia secondary to blood loss (chronic) (principal); E61.1 Iron deficiency; E53.8 Deficiency of other specified B group vitamins
CPT/HCPCS: 36415; 80053; 82607; 83540; 83550; 85027

== ENCOUNTER → 2024-03-04 13:16 | Outpatient (REF) | payer MEDICARE, SELFPAY ==
[2024-03-04 15:05] LABS: Hematocrit 35.6 % (37.0-47.0); Hemoglobin 11.2 g/dL (12.0-16.0); Mean Corp Hgb Conc. 31.5 g/dL (33.0-37.0); Mean Corpuscular Hgb 26.4 pg (27.0-31.0); Mean Corpuscular Volume 83.8 fL (81.0-99.0); Mean Platelet Volume 8.3 fL (7.4-10.4); Platelet Count 389 10^3/uL (130-400); Red Blood Cell Count 4.25 10^6/uL (4.20-5.40); Red Cell Dist. Width 19.1 % (11.5-14.5); White Blood Cell Count 8.1 10^3/uL (4.8-10.8)
[2024-03-04 15:13] LABS: ALT (SGPT) 13 U/L (0-35); AST (SGOT) 20 U/L (14-36); Albumin 3.7 g/dl (3.5-5.0); Alkaline Phosphatase 77 U/L (38-126); Blood Urea Nitrogen 14 mg/dl (7-17); Calcium 8.6 mg/dl (8.4-10.2); Carbon Dioxide 34 mmol/L (22-30); Chloride 93 mmol/L (98-107); Glucose 81 mg/dl (70-99); Iron 137 ug/dl (37-170); Potassium 3.8 mmol/L (3.5-5.1); Sodium 134 mmol/L (135-145); Total Bilirubin 0.2 mg/dl (0.2-1.3); Total Protein 6.6 g/dl (6.3-8.2); eGFR > 60.00
[2024-03-04 15:23] LABS: Percent Saturation 34 % (20-50); Total Iron Binding Capacity 393 ug/dl (265-497)
== END ==
LOC: REG 13:16
PROVIDERS: ATTENDING PHYSICIAN Family Medicine
DX: D50.0 Iron deficiency anemia secondary to blood loss (chronic) (principal); E61.1 Iron deficiency
CPT/HCPCS: 36415; 80053; 83540; 83550; 85027

== ENCOUNTER 2024-03-22 22:27 | Inpatient (IN) | payer MEDICARE, SELFPAY ==
--- NOTE | 2024-03-22 18:46 | ED.GENMED ---
Addendum entered and electronically signed by GRETCHEN Mckeon 03/22/24 22:47:
Back into see patient. Patient has a rash that covers her back, upper chest and posterior arms. Hospitalist notified. Explained that patient does have a sulf allergy and that she was given Lasix that was cleared by the ER physician. Will give
Benadryl 12.5 IV as ordered by the Hospitalist.
Original Note:
ED Provider Triage
<Quintin Marie PA-C - Last Filed: 03/22/24 18:55>
-
Patient seen by provider in Triage?: Seen in Triage
Attestation: A medical screening examination has been initiated by a qualified medical provider. Based on the assessment performed at this time, it has been determined that an emergent medical condition may exist and the patient has been informed
that further medical evaluation and possible additional diagnostic testing may be needed.
HPI: 83-year-old female presenting to the emergency department for evaluation of cough that has been gradually worsening over the last 2 days. No reported fevers but patient did have some minor nausea and mucousy vomitus earlier today. Family
member here with the patient just recently got over the flu. Patient pulse ox noted to be 70% while in triage, family member notes patient's lips have been a little bit cyanotic. Patient not in any obvious respiratory distress however given her
pulse ox will bring patient immediately back to the ER for further evaluation
GENERAL: Alert , in no apparent distress
EYE: No visual abnormalities.
NECK: Trachea midline
ENT: No visible abnormalities.
LUNGS: No acute respiratory distress
NEUROLOGICAL: Alert and oriented
SKIN: Skin intact. No visible changes.
MUSCULOSKELETAL: Moving extremities normally
PSYCH: Normal and appropriate interaction.
This is a medical evaluation conducted in person to initiate diagnostic evaluation and provide initial therapeutics. Please see further documentation by the treating clinician.
History of Present Illness
<Quintin Marie PA-C - Last Filed: 03/22/24 18:55>
General
Chief Complaint: Breathing Problem
Time Seen by Provider: 03/22/24 19:13
<GRETCHEN Mckeon - Last Filed: 03/22/24 20:44>
General
Source: patient and family ([id number])
Exam Limitations: none
History of Present Illness
History of Present Illness:
This is a 83 year old female that is brought in by her daughter in law. States that she has been fighting an upper respiratory think for the past week. States that she is SOB. States that they had tested her at home for COVID and Influenza and she
has tested negative. Then about 2 hours ago she started with Cyanosis. States that she thought she better bring her in. States that she has been dizzy and had diarrhea. Denies any fever, chills, chest pain, abd pain, nausea, vomiting, headache,
urinary burning.
Past History
<GRETCHEN Mckeon - Last Filed: 03/22/24 20:44>
Past History
ED Past Medical History: Arrthythmia (Atrial fib) and Other (Hernia's Anemia. Emphysema, Ulcers)
ED Past Surgical History: None
Social History
Tobacco: Former smoker
Alcohol: Occasional
Personal:
Living: with family
Review of Systems
<GRETCHEN Mckeon - Last Filed: 03/22/24 20:44>
Review of Systems
All Other Systems: ROS reviewed and negative except as documented in HPI and ROS
Constitutional: Reports no symptoms; Denies fever or chills
EENT: Reports no symptoms
Respiratory: Reports cough and trouble breathing
Cardiac: Reports no symptoms; Denies chest pain
ABD/GI: Reports diarrhea; Denies abdominal pain, nausea or vomiting
: Reports no symptoms; Denies dysuria, frequency or urgency
Musculoskeletal: Reports no symptoms
Skin: Reports no symptoms
Neurological: Reports dizzy; Denies headache
Psychiatric: Reports no symptoms
Phy Exam
<GRETCHEN Mckeon - Last Filed: 03/22/24 20:44>
General Physical Exam
General Presentation: mild distress
General age: appears stated age
General Skin: warm and dry
General Habitus: elderly
General Mental: alert
General Hydration: appears well hydrated
ENT Exam
ENT Exam: TM's normal, pharynx normal and neck supple
Eye Exam
Eye Exam: EOMI
Cardiovascular Exam
Cardiovascular Exam: no edema, normal peripheral pulses and irregularly irregular
Pulmonary Exam
Pulmonary Exam: decreased breath sounds (with Exp wheezing throughout) and other (Occasional dry cough noted)
Gastrointestinal Exam
Gastrointestinal Exam: normal bowel sounds, soft, no organomegaly, no pulsatile mass, non distended and tender (RUQ tenderness only with palpation)
Musculoskeletal Exam
Musculoskeletal Exam: full ROM and no edema
Skin Exam
Skin Exam: warm/dry, no petechia and other (Hands and fingers cyanotic, )
Psychiatric Exam
Psychiatric Exam: normal mood/affect
Scores
<GRETCHEN Mckeon - Last Filed: 03/22/24 20:44>
Heart Failure Risk
Heart Failure Risk Score: Yes
History of Stroke or TIA: No
History of intubation for respiratory distress: No
Heart rate on ED arrival >/= 110: No
SaO2 <90% on arrival on room air: Yes
HR >/=110 during 3min walk test (or too ill to perform test): Yes
ECG has acute ischemic changes: No
Urea >/=12mmol/L (BUN 33.6mg/dL): No
Serum CO2>/=35mmol/L: Yes
Troponin I or T elevated to HI Level (0.4mg/dL): Yes
NT-proBNP >/=5,000ng/L (5,000pg/ml): Yes
HF Risk Score: 8
Admission Status: VERY HIGH RISK 81.2% Consider admission to hospital
<Eyad Ambrosio DO - Last Filed: 03/22/24 21:01>
Heart Failure Risk
HF Risk Score: 8
Admission Status: VERY HIGH RISK 81.2% Consider admission to hospital
Course
<Quintin Marie PA-C - Last Filed: 03/22/24 18:55>
Orders/Labs/Results
Orders:
Orders
03/22/24 19:27
COVID-19 Antigen Urgent
Source: Nasal Swab
Influenza A+B Rapid Molecular Urgent
TRACY Source: Nasal Swab
Specimen Description:
Dexamethasone Sod Phosphate [Decadron] 20 mg IV NOW STA
Ipratropium/Albuterol Sulfate [Duoneb] 3 ml INH R NOW ONE
03/22/24 19:28
CR Chest Portable - 1 View Urgent
Comment:
Reason For Exam: SOB
Reason Study Needs to be Portable: Unable to Transport
03/22/24 19:41
Type And Crossmatch [Type+Screen] Urgent
Electrocardiogram (*1) Urgent
Reason for Study: Shortness of Breath
EKG- Treatment ONCE
Complete Blood Count/With Diff Urgent
Comprehensive Metabolic Panel Urgent
NT-proBNP Urgent
Troponin I Urgent
03/22/24 20:19
Furosemide [Lasix] 40 mg IV NOW STA
Abnormal Lab Results
03/22/24
19:41
WBC 11.4 H 10^3/uL
(4.8-10.8)
Hgb 11.5 L g/dL
(12.0-16.0)
MCH 25.8 L pg
(27.0-31.0)
MCHC 30.8 L g/dL
(33.0-37.0)
RDW 17.2 H %
(11.5-14.5)
Plt Count 448 H 10^3/uL
(130-400)
Absolute Neuts (auto) 10.0 H 10^3/uL
(1.4-6.5)
Absolute Lymphs (auto) 0.6 L 10^3/uL
(1.2-3.4)
Absolute Monos (auto) 0.7 H 10^3/uL
(0.1-0.6)
Neutrophils % 87.7 H %
(42.2-75.2)
Lymphocytes % 5.2 L %
(20.5-51.1)
Sodium 131 L mmol/L
(135-145)
Potassium 3.4 L mmol/L
(3.5-5.1)
Chloride 89 L mmol/L
(98-107)
Carbon Dioxide 38 H mmol/L
(22-30)
Glucose 132 H mg/dl
(70-99)
Calcium 8.3 L mg/dl
(8.4-10.2)
Total Bilirubin 0.1 L mg/dl
(0.2-1.3)
Troponin I 0.094 H* ng/ml
Total Protein 6.1 L g/dl
(6.3-8.2)
Albumin 3.4 L g/dl
(3.5-5.0)
03/22/24 19:41
03/22/24 19:41
Vital Signs
Initial and Last Documented VS:
Initial Vital Signs
Temp Pulse Resp BP
97.8 F 108 24 158/78
03/22/24 18:47 03/22/24 18:47 03/22/24 18:47 03/22/24 18:47
Last Documented Vital Signs
Temp Pulse Resp BP Pulse Ox
99.3 F 99 28 178/88 92
03/22/24 19:51 03/22/24 20:29 03/22/24 20:15 03/22/24 20:29 03/22/24 20:15
<Leticia Hernández, RECORDING ENGINEER - Last Filed: 03/22/24 20:44>
Orders/Labs/Results
Orders:
Orders
03/22/24 19:27
COVID-19 Antigen Urgent
Source: Nasal Swab
Influenza A+B Rapid Molecular Urgent
TRACY Source: Nasal Swab
Specimen Description:
Dexamethasone Sod Phosphate [Decadron] 20 mg IV NOW STA
Ipratropium/Albuterol Sulfate [Duoneb] 3 ml INH R NOW ONE
03/22/24 19:28
CR Chest Portable - 1 View Urgent
Comment:
Reason For Exam: SOB
Reason Study Needs to be Portable: Unable to Transport
03/22/24 19:41
Type And Crossmatch [Type+Screen] Urgent
Electrocardiogram (*1) Urgent
Reason for Study: Shortness of Breath
EKG- Treatment ONCE
Complete Blood Count/With Diff Urgent
Comprehensive Metabolic Panel Urgent
NT-proBNP Urgent
Troponin I Urgent
03/22/24 20:19
Furosemide [Lasix] 40 mg IV NOW STA
Abnormal Lab Results
03/22/24
19:41
WBC 11.4 H 10^3/uL
(4.8-10.8)
Hgb 11.5 L g/dL
(12.0-16.0)
MCH 25.8 L pg
(27.0-31.0)
MCHC 30.8 L g/dL
(33.0-37.0)
RDW 17.2 H %
(11.5-14.5)
Plt Count 448 H 10^3/uL
(130-400)
Absolute Neuts (auto) 10.0 H 10^3/uL
(1.4-6.5)
Absolute Lymphs (auto) 0.6 L 10^3/uL
(1.2-3.4)
Absolute Monos (auto) 0.7 H 10^3/uL
(0.1-0.6)
Neutrophils % 87.7 H %
(42.2-75.2)
Lymphocytes % 5.2 L %
(20.5-51.1)
Sodium 131 L mmol/L
(135-145)
Potassium 3.4 L mmol/L
(3.5-5.1)
Chloride 89 L mmol/L
(98-107)
Carbon Dioxide 38 H mmol/L
(22-30)
Glucose 132 H mg/dl
(70-99)
Calcium 8.3 L mg/dl
(8.4-10.2)
Total Bilirubin 0.1 L mg/dl
(0.2-1.3)
Troponin I 0.094 H* ng/ml
Total Protein 6.1 L g/dl
(6.3-8.2)
Albumin 3.4 L g/dl
(3.5-5.0)
03/22/24 19:41
03/22/24 19:41
Leukocytosis, H/H slightly low. Thrombocytosis, Hyponatremia, Hypochloremia, Hyperglycemia. Calcium very slightly low. Total amanda low. Troponin elevation 0.094, Total protein very slightly low. Alb COVID and Influenza negative.
Pro-BNP 11,800
Vital Signs
Initial and Last Documented VS:
Initial Vital Signs
Temp Pulse Resp BP
97.8 F 108 24 158/78
03/22/24 18:47 03/22/24 18:47 03/22/24 18:47 03/22/24 18:47
Last Documented Vital Signs
Temp Pulse Resp BP Pulse Ox
99.3 F 99 28 178/88 92
03/22/24 19:51 03/22/24 20:29 03/22/24 20:15 03/22/24 20:29 03/22/24 20:15
<Eyad HElizabeth Ambrosio DO - Last Filed: 03/22/24 21:01>
Orders/Labs/Results
Orders:
Orders
03/22/24 19:27
COVID-19 Antigen Urgent
Source: Nasal Swab
Influenza A+B Rapid Molecular Urgent
TRACY Source: Nasal Swab
Specimen Description:
Dexamethasone Sod Phosphate [Decadron] 20 mg IV NOW STA
Ipratropium/Albuterol Sulfate [Duoneb] 3 ml INH R NOW ONE
03/22/24 19:28
CR Chest Portable - 1 View Urgent
Comment:
Reason For Exam: SOB
Reason Study Needs to be Portable: Unable to Transport
03/22/24 19:41
Type And Crossmatch [Type+Screen] Urgent
Electrocardiogram (*1) Urgent
Reason for Study: Shortness of Breath
EKG- Treatment ONCE
Complete Blood Count/With Diff Urgent
Comprehensive Metabolic Panel Urgent
NT-proBNP Urgent
Troponin I Urgent
03/22/24 20:19
Furosemide [Lasix] 40 mg IV NOW STA
Abnormal Lab Results
03/22/24
19:41
WBC 11.4 H 10^3/uL
(4.8-10.8)
Hgb 11.5 L g/dL
(12.0-16.0)
MCH 25.8 L pg
(27.0-31.0)
MCHC 30.8 L g/dL
(33.0-37.0)
RDW 17.2 H %
(11.5-14.5)
Plt Count 448 H 10^3/uL
(130-400)
Absolute Neuts (auto) 10.0 H 10^3/uL
(1.4-6.5)
Absolute Lymphs (auto) 0.6 L 10^3/uL
(1.2-3.4)
Absolute Monos (auto) 0.7 H 10^3/uL
(0.1-0.6)
Neutrophils % 87.7 H %
(42.2-75.2)
Lymphocytes % 5.2 L %
(20.5-51.1)
Sodium 131 L mmol/L
(135-145)
Potassium 3.4 L mmol/L
(3.5-5.1)
Chloride 89 L mmol/L
(98-107)
Carbon Dioxide 38 H mmol/L
(22-30)
Glucose 132 H mg/dl
(70-99)
Calcium 8.3 L mg/dl
(8.4-10.2)
Total Bilirubin 0.1 L mg/dl
(0.2-1.3)
Troponin I 0.094 H* ng/ml
Total Protein 6.1 L g/dl
(6.3-8.2)
Albumin 3.4 L g/dl
(3.5-5.0)
03/22/24 19:41
03/22/24 19:41
Vital Signs
Initial and Last Documented VS:
Initial Vital Signs
Temp Pulse Resp BP
97.8 F 108 24 158/78
03/22/24 18:47 03/22/24 18:47 03/22/24 18:47 03/22/24 18:47
Last Documented Vital Signs
Temp Pulse Resp BP Pulse Ox
99.3 F 99 28 178/88 92
03/22/24 19:51 03/22/24 20:29 03/22/24 20:15 03/22/24 20:29 03/22/24 20:15
<GRETCHEN Mckeon - Last Filed: 03/22/24 20:44>
MDM/Problems Addressed
Differential Diagnosis Includes:
PNA, heart failure, PE, Anemia
MDM/Problems Addressed:
This is a 83 year old female that is brought in by her family with c/o an upper respiratory problem. States that this has been going on for a week and then about 2 hours ago she started with Cyanosis.
Will check labs. Portable chest X-ray. Give a duo neb and steroids. Seen by Dr. Ambrosio.
Back into see patient and daughter. Explained that her chest x-ray looks to have CHF and possible some Pneumonia. Await the official radiologist read. However, will admit patient. Hospitalist notified
Chronic conditions affecting care:
Atrial fib, Anemia
Chronic conditions affecting care: COPD (Emphysema)
Acute Exacerbation and/or Progression of Chronic Illness:
Anemia,
Acute Exacerbation and/or Progression of Chronic Illness: COPD (Emphysema)
<GRETCHEN Mckeon - Last Filed: 03/22/24 20:44>
*Radiology
Radiology exam reviewed: preliminary read by ED provider (Bilateral pleural effusion Questionable Pneumonia), radiology read reviewed (Chest-Small to moderate bilateral pleural effusions, New from Prior CT examination. Subtle increased interstitial
markings in the perhilar regions, slightly greater on the right compared to the left. Main differential considerations of interstitial edema and interstitial Pneumonia. Interstitial ) and other (Chest cont- interstitial edema is slightly favored,
although no Cherise B lines are identified. )
*Pulse Oximetry
Patient hypoxic: yes
Comment: 44 on room air
*EKG
Interpreted by ED Provider?: Yes
Heart Rate: 97
Rate: normal
Rhythm: sinus
[place]: left axis deviation
Interval: first degree heart block
QRS Pattern: normal QRS
Ischemia: no ischemia
*Burial Agent Interpretation
Rate: tachycardiac
Heart Rate: 100
Rhythm: a-fib
*Critical Care Note
Total Time (30-74mins, 75-104mins- exclusive of procedures): Not Applicable
ED Attending Note
<Quintin Marie PA-C - Last Filed: 03/22/24 18:55>
-
Portions of this chart may have been created with voice recognition software.� Occasional wrong word or��sound alike� substitutions may have occurred due to the inherent limitations of voice recognition software.
<Eyad Ambrosio DO - Last Filed: 03/22/24 21:01>
ED Attending Note
Patient seen and examined by attending physician: Yes
I performed the substantive portion of visit, reviewed & personally made and approve the management plan that is documented in note by myself or RONEN.: Yes
ED Attending Note:
I agree with Leticia's note
Patient brought to the emergency room for evaluation due to cough, mild confusion, fever. Patient has been unwell for the past couple days. Noted to have cyanotic fingers and toes
General: Awake, Alert, Oriented X to person and place. No apparent respiratory distress
Vitals: Tachypneic, hypoxic, tachycardic
Head: Atraumatic
Eyes: Pupils equal, EOMI
Throat: Airway intact, no exudates, dry mucosa
Neck: Trachea midline, positive JVD
Lungs: Decreased breath sounds bilaterally, rales bilateral lower lobe
Heart: Tachycardic, regular rate, no murmurs
Abd: Soft, Nontender, No pulsatile mass
Neuro: Nonfocal
Skin: Warm, dry, no rash
Extremities: pulses equal b/l, 2+ edema, peripheral cyanosis noted which improved with supplemental nasal cannula oxygen
Patient presents with hypoxia, subjective fever at home. We will obtain labs, chest x-ray. Provide neb treatment. Rectal temp requested
Chest x-ray appears more consistent with congestive heart failure to me. Patient is afebrile here. The triage note indicates the patient is a fever the patient's family and the patient deny having a fever at home. Given chest x-ray findings,
peripheral edema, rales on exam and JVD in conjunction with a markedly elevated BNP I feel the patient's presentation is most consistent with congestive heart failure rather than infectious process. Will treat with Lasix. I do not believe
antibiotics are indicated at this time.
Discharge Plan
Departure
Patient Disposition: Admit
Date of Disposition: 03/22/24
Time of Disposition: 20:39
Admit to: Telemetry
Presentation/result/management discussed w/ accepting MD/DO: Hospitalist
Patient with high blood pressure during this ER visit?: Yes
Condition: Good
Covid-19: Negative COVID-19
Discharge Problem:
Elevated troponin, CHF (congestive heart failure), Hypoxia
Prescriptions:
No Action
famotidine 40 mg Tablet
40 mg PO DAILY
Tums 300 mg (750 mg) Tablet,Chewable
300 mg PO DAILY
omeprazole 40 mg Capsule,Delayed Release(Dr/Ec)
40 mg PO DAILY
acetaminophen [Tylenol Extra Strength] 500 mg Tablet
500 mg PO Q6HPRN PRN (Reason: mild pain)
trazodone 100 mg Tablet
100 mg PO HSPRN PRN (Reason: sleep)
diltiazem HCl 120 mg Capsule,Extended Release 24 Hr
120 mg PO DAILY
flecainide 50 mg Tablet
50 mg PO Q12H
Kaopectate (bismuth subsalicy) 262 mg Tablet
524 mg PO DAILY
WesTab Max 2.5-25-2 mg Tablet
1 tab PO DAILY 30 Days Qty: 30 0RF
Referrals:
UNKNOWN - PT DOES,NOT KNOW [Family Provider] -
Interventions
Interventions:
*Risk Screen - Suicide Last Done: 03/22/24 18:47
*General Assessment Last Done: 03/22/24 19:20
*Neglect/Abuse Screening Last Done: 03/22/24 18:47
ED- Fall Risk Assessment Last Done: 03/22/24 19:20
*ED COVID-19 Vaccine History Last Done: 03/22/24 19:20
ED- Cardiac Assessment Last Done: 03/22/24 19:20
ED- Pulmonary Assessment Last Done: 03/22/24 19:20
Discharge Date and Time
Print Language: LATVIAN
[2024-03-22 18:47] VITALS: BP 158/78
[2024-03-22 19:47] LABS: % Basophils 0.4 % (0-2); % Immature Granulocytes 0.4 % (0-0.5); % Lymphocytes 5.2 % (20.5-51.1); % Monocytes 6.3 % (1.7-9.3); % Neutrophils 87.7 % (42.2-75.2); Absolute Basophils 0.1 10^3/uL (0-0.2); Absolute Lymphocytes 0.6 10^3/uL (1.2-3.4); Absolute Monocytes 0.7 10^3/uL (0.1-0.6); Hematocrit 37.3 % (37.0-47.0); Hemoglobin 11.5 g/dL (12.0-16.0); Mean Corp Hgb Conc. 30.8 g/dL (33.0-37.0); Mean Corpuscular Hgb 25.8 pg (27.0-31.0); Mean Corpuscular Volume 83.8 fL (81.0-99.0); Mean Platelet Volume 7.8 fL (7.4-10.4); Nucleated Red Blood Cells % 0 %; Platelet Count 448 10^3/uL (130-400); Red Blood Cell Count 4.45 10^6/uL (4.20-5.40); Red Cell Dist. Width 17.2 % (11.5-14.5); White Blood Cell Count 11.4 10^3/uL (4.8-10.8)
[2024-03-22 19:59] LABS: COVID-19 Antigen Negative (Negative)
[2024-03-22 19:59] LABS: ALT (SGPT) 17 U/L (0-35); AST (SGOT) 21 U/L (14-36); Albumin 3.4 g/dl (3.5-5.0); Alkaline Phosphatase 73 U/L (38-126); Blood Urea Nitrogen 17 mg/dl (7-17); Calcium 8.3 mg/dl (8.4-10.2); Carbon Dioxide 38 mmol/L (22-30); Chloride 89 mmol/L (98-107); Glucose 132 mg/dl (70-99); Potassium 3.4 mmol/L (3.5-5.1); Sodium 131 mmol/L (135-145); Total Bilirubin 0.1 mg/dl (0.2-1.3); Total Protein 6.1 g/dl (6.3-8.2); eGFR > 60.00
[2024-03-22 20:14] LABS: Troponin I 0.094 ng/ml
[2024-03-22] MEDS: DUONEB 3 ML INH (20:27)
[2024-03-22 20:29] VITALS: BP 161/94
[2024-03-22] MEDS: LASIX 40 MG IV (20:29)
[2024-03-22 20:31] VITALS: BP 178/88
[2024-03-22 20:36] LABS: NT-proBNP 11800 pg/ml
--- NOTE | 2024-03-22 21:18 | HPS.HSE ---
Addendum entered and electronically signed by Elmo Kruger MD 03/22/24 22:48:
Patient had allergic reaction to Lasix. She has a history of sulfa allergy. Give 12.5 mg Benadryl. Switch Lasix to ethacrynic acid 50 mg IV daily.
Original Note:
Family Physician
-
Family Physician: NOT KNOW UNKNOWN - PT DOES
Chief Complaint
-
shortness of breath
History of Present Illness
83-year-old female past medical history of paroxysmal atrial fibrillation recently on Eliquis, hypertension, bowel obstruction status post bowel resection 20 years ago, GERD, anemia, presenting with productive cough that has been gradually worsening
over the past 2 days and shortness of breath. She had similar extremity swelling. No fever or sore throat. No chest pain. Family members here just recently had flu 2 weeks ago. Patient had pulse ox of 70% in triage. Her lips have been a little
bit cyanotic.
She had some abdominal pain and some loose stools today.
She drinks a glass of wine every night. She is a former smoker.
Medical History
Past Medical History
Past Medical History: Reports Other (paroxysmal atrial fibrillation recently on Eliquis, hypertension, bowel obstruction status post bowel resection 20 years ago, GERD, anemia)
Past Surgical History: Reports Other
Social History
Tobacco: Non-smoker
Alcohol: Daily
Drug: None
Family History
Family History: Not pertinent
Allergies / Home Medications
Allergies reflects when Allergies were last updated in [employer].
Home Medications with original date entered in [employer]
Allergy/Medication List:
Allergies
Allergy/AdvReac Type Severity Reaction Status Date / Time
Iodinated Contrast Media Allergy Unknown Verified 03/22/24 18:53
Penicillins Allergy Swelling Verified 03/22/24 18:53
shellfish derived Allergy Unknown Verified 03/22/24 18:53
Sulfa (Sulfonamide Allergy Swelling Verified 03/22/24 18:53
Antibiotics)
Home Medications
acetaminophen 500 mg tablet (Tylenol Extra Strength) 500 mg PO Q6HPRN PRN mild pain 10/09/23
bismuth subsalicylate 262 mg tablet (Kaopectate (bismuth subsalicylate)) 524 mg PO DAILY Gastrointestinal Issue 10/09/23
calcium carbonate (Tums) 300 mg PO DAILY Gastrointestinal Issue 10/09/23
diltiazem HCl 120 mg capsule,24 hr,extended release 120 mg PO DAILY Blood Pressure 10/09/23
famotidine 40 mg tablet 40 mg PO DAILY Gastrointestinal Issue 10/09/23
flecainide 50 mg tablet 50 mg PO Q12H Arrhythmia 10/09/23
omeprazole 40 mg capsule,delayed release 40 mg PO DAILY Gastrointestinal Issue 10/09/23
trazodone 100 mg tablet 100 mg PO HSPRN PRN sleep 10/09/23
folic acid-vit B6-vit B12 2.5 mg-25 mg-2 mg tablet (WesTab Max) 1 tab PO DAILY 30 days #30 tabs 10/10/23
Review of Systems
-
History Source: Patient
A 12 point ROS was completed and negative except as noted: Yes
Constitutional: Reports No Symptoms
EENT: Reports No Symptoms
Respiratory: Reports See HPI
Cardiac: Reports See HPI
Abdomen/GI: Reports No Symptoms
: Reports No Symptoms
Musculoskeletal: Reports No Symptoms
Skin: Reports No Symptoms
Neurological: Reports No Symptoms
Endocrine: Reports No Symptoms
Hematologic/Lymphatic: Reports No Symptoms
Psych: Reports No Symptoms
Physical Exam
Vital Signs
Vital Signs
Temp Pulse Resp BP Pulse Ox
99.3 F 99 28 178/88 92
03/22/24 19:51 03/22/24 20:29 03/22/24 20:15 03/22/24 20:29 03/22/24 20:15
Physical Exam
General: Well Developed, Well Nourished and No Apparent Distress
HEENT: NormoCephalic, Moist mucous membranes and Atraumatic
Respiratory: Clear
Cardiac: S1/S2 and Regular Rhythm; No Murmur or Rub
GI: Soft, Non Tender, Non Distended and Normal Bowel Sounds; No Organomegaly
Rectal: Deferred by Provider
Musculoskeletal: No Clubbing, No Cyanosis and No Edema
Skin: No Rash
Neuro: Nonfocal/grossly intact
Laboratory Results
-
03/22/24 19:41
03/22/24 19:41
Laboratory Results
Total Bilirubin 0.1 mg/dl (0.2-1.3) L 03/22/24 19:41
AST 21 U/L (14-36) 03/22/24 19:41
ALT 17 U/L (0-35) 03/22/24 19:41
Alkaline Phosphatase 73 U/L (38-126) 03/22/24 19:41
Troponin I 0.094 ng/ml H* 03/22/24 19:41
Data Reviewed
-
Lab Data: Labs Reviewed by me
Old Records: Reviewed
Impression/Plan
-
IMPRESSION:
PLAN:
# Acute CHF exacerbation/possible viral URI as well
-Leukocytosis
-Influenza and COVID-negative
-Cardiac BNP 11,000
-Chest x-ray shows small to moderate bilateral pleural effusion
-Check I's and O's, daily
-40 IV Lasix daily
-Check echo
-Cardiology consulted
# Uncontrolled hypertension
-Did not take her meds today
# Nonischemic myocardial injury
-EKG shows sinus rhythm with sinus arrhythmia, first-degree AV block
-Trend troponins
# Hypokalemia
-Replete potassium
Chronic anemia
-Hemoglobin stable
Paroxysmal atrial fibrillation
-Continue Cardizem, flecainide
-Continue Eliquis
Essential hypertension
History of bowel obstruction status post bowel resection 20 years ago
GERD
-Continue Pepcid, omeprazole
DNR/DNI
DVT prophylaxis�heparin
Cardiac diet
[2024-03-22 22:00] VITALS: BP 207/105
[2024-03-22] MEDS: BENADRYL 12.5 MG IV (22:59)
[2024-03-23] VITALS (7 sets, daily range): BP systolic 132–191; BP diastolic 59–85; BMI 20.2
[2024-03-23] MEDS: TAMBOCOR 50 MG PO ×3 (00:11→19:52)
--- NOTE | 2024-03-23 00:53 | PTCARENOTE ---
Pt transferred from ED to 3W via stretcher. Pt was pulled over from stretcher to bed, AAOX3, JACKSON (no hearing aids). Vitals obtained and stable, pt not complaining of pain. Oriented to room, call ford within reach.
[2024-03-23 01:24] LABS: Troponin I 0.104 ng/ml
[2024-03-23 05:42] LABS: Hematocrit 38.1 % (37.0-47.0); Hemoglobin 12.2 g/dL (12.0-16.0); Mean Corpuscular Volume 81.1 fL (81.0-99.0); Mean Platelet Volume 7.9 fL (7.4-10.4); Platelet Count 476 10^3/uL (130-400); Red Cell Dist. Width 16.4 % (11.5-14.5)
[2024-03-23 06:12] LABS: Blood Urea Nitrogen 16 mg/dl (7-17); Calcium 8.4 mg/dl (8.4-10.2); Chloride 87 mmol/L (98-107); Estimated Creatinine Clearance 53 ml/min; Glucose 85 mg/dl (70-99); Sodium 136 mmol/L (135-145); eGFR > 60.00
[2024-03-23 06:22] LABS: Carbon Dioxide 38 mmol/L (22-30); Potassium 2.8 mmol/L (3.5-5.1)
[2024-03-23 06:24] LABS: Troponin I 0.095 ng/ml
[2024-03-23] MEDS: ELIQUIS 2.5 MG PO ×2 (09:00→19:52)
[2024-03-23] MEDS: CARDIZEM CD 120 MG PO (09:00)
[2024-03-23] MEDS: EDECRIN 50 MG IV (09:00)
[2024-03-23] MEDS: PROTONIX 40 MG PO (09:00)
[2024-03-23] MEDS: PEPCID 20 MG PO (09:00)
[2024-03-23] MEDS: KCL 270 MEQ IV (09:45)
[2024-03-23] MEDS: KCL 40 MEQ PO (09:45)
--- NOTE | 2024-03-23 09:49 | W.PN.HOSP.TC ---
Today's Communication/Plan
-
IV ethacrynic acid.
Assessment / Plan
Assessment / Plan
Physical Exam
General: Acutely ill
HEENT: NormoCephalic, Moist mucous membranes and Atraumatic
Respiratory: Coarse crackles bilaterally, no wheezes or rhonchi.
Cardiac: S1/S2 and Regular Rhythm; No Murmur or Rub
GI: Soft, Non Tender, Non Distended and Normal Bowel Sounds; No Organomegaly
Rectal: Deferred by Provider
Musculoskeletal: Bilateral lower extremity edema. No Clubbing, No Cyanosis
Skin: No Rash
Neuro: Nonfocal/grossly intact, cognitive deficits present
A/P:
Acute hypoxic respiratory failure:
Likely heart failure related and recent URI
Continue diuretics
Taper off oxygen
Updated [id number]-[id number] today on 03/23
Cardiology consult-discussed with cardiology via [place] text today
Acute diastolic congestive heart failure:
IV ethacrynic acid 50 mg daily
Start spironolactone
Monitor ins and outs
Monitor daily weight
Update echocardiogram
Hypokalemia:
Replete and trend
URI:
Supportive care
Allergic reaction:
Due to Lasix
Given Benadryl and IV Decadron
Leukocytosis:
Reactive due to steroids
Monitor trend
Elevated troponin:
Elevated troponin due to non-ischemic myocardial injury in the setting of acute heart failure
Paroxysmal A-fib:
Continue rate control, diltiazem 120 mg p.o. daily
Continue anticoagulation, flecainide 50 mg p.o. every 12 hours
Continue anticoagulant, Eliquis 2.5 mg p.o. twice a day
Chronic iron deficiency anemia:
No signs of active bleeding
Continue to monitor hemoglobin
Alcohol use disorder:
Monitor for signs of alcohol withdrawal
Cognitive deficits:
Monitor behavior and mental status
GERD:
Continue PPI and H2 rosenda
DVT prophylaxis:
Eliquis
CODE STATUS:
DNR
Total time spent on today's encounter was 52 minutes which included time spent in counseling the patient/family regarding diagnosis and treatment plan as listed above, goals of care, and symptom management. Case was discussed with nursing staff,
specialists, and care coordinators/case management. All labs and imaging personally reviewed by me. Remainder the time spent in detailed review of previous records, lab data, imaging, and other medical provider documentation.
Anticipated Discharge: > 48 hours
Subjective/Interval History
-
Date of Service: March 23, 2024
Patient still with some shortness of breath and peripheral edema. No chest pain. She states that 'she would like to go home' but explained to her rationale that she needs to be in the hospital.
Objective Data
-
Labs:
Laboratory Results
03/23/24
05:20
WBC 18.0 H
Hgb 12.2
Hct 38.1
Plt Count 476 H
Sodium 136
Potassium 2.8 L
Chloride 87 L
Carbon Dioxide 38 H
BUN 16
Creatinine 0.7
Glucose 85
Calcium 8.4
Vital Signs:
Vital Signs
Temp Pulse Resp BP Pulse Ox
97.9 F 93 16 155/65 97
03/23/24 07:27 03/23/24 09:00 03/23/24 07:27 03/23/24 09:00 03/23/24 07:27
--- NOTE | 2024-03-23 11:46 | CON.CAR ---
Addendum entered and electronically signed by Eyad Schaefer MD 03/23/24 13:31:
Patient seen and examined in collaboration with TRAINS DISPATCHER SUPERVISOR; agree with below.
-83-year-old female with paroxysmal atrial fibrillation (on Eliquis and flecainide), hypertension, and iron deficiency anemia admitted with shortness of breath.
-Patient with crackles on examination.
-Diuresed with ethacrynic acid (Lasix allergy).
-Will start spironolactone 25 mg daily (has notable hypokalemia).
-Echocardiogram today.
-threat monitoring analyst; will follow.
Original Note:
Consultation
Consultation Request
Date/Time Consultation Requested: 03/23/2024 10:15
Date/Time Consultation Performed: 03/23/2024 11:45
Requesting Provider: Dr. Gomez
Performing Provider: GRETCHEN Burt for Dr. Schaefer
Reason for Consultation: Congestive heart failure
Medical History
-
Chief Complaint: Shortness of breath
History of Present Illness:
Jimena Dominguez is an 83-year-old female (known to her primary label paster, Dr. Jackson from [facility]), with paroxysmal atrial fibrillation (on flecainide and apixaban), iron deficiency anemia, bowel obstruction status post
resection (early ), and hypertension who presented to the emergency department with a chief complaint of shortness of breath. Per her family and had been ongoing for about 2 weeks. Her son and knvptaer-oz-ipr recently recovered from the flu.
Her [id number], a retired nurse, stated she looked cyanotic. SpO2 in the 70s in triage. She was admitted with viral URI and acute heart failure exacerbation. She has leukocytosis but was negative for influenza and COVID-19. She had elevated
proBNP and a chest x-ray that showed mild to moderate bilateral pleural effusions. She was given furosemide 40 mg IV and then developed a rash. She was given intravenous diphenhydramine and started on ethacrynic acid.
Past Medical History
Past Medical History: Arrhythmias (Paroxysmal atrial fibrillation [on apixaban]), HTN and Other (Iron deficiency anemia)
Past Surgical History: Bowel Resection
Social History
Tobacco: Former Smoker
Alcohol: Daily (Wine every night)
Drug: None
Personal:
Living: Alone
Employment: Retired
Family History
Family History: Reviewed & Not Pertinent
Allergies / Home Medications
Allergy/AdvReac Type Severity Reaction Status Date / Time
Iodinated Contrast Media Allergy Unknown Verified 03/22/24 18:53
Penicillins Allergy Swelling Verified 03/22/24 18:53
shellfish derived Allergy Unknown Verified 03/22/24 18:53
Sulfa (Sulfonamide Allergy Swelling Verified 03/22/24 18:53
Antibiotics)
�Medication �Instructions �Recorded �Confirmed �Type
acetaminophen 500 mg tablet 500 mg PO Q6HPRN PRN mild pain 10/09/23 10/09/23 History
(Tylenol Extra Strength)
bismuth subsalicylate 262 mg 524 mg PO DAILY Gastrointestinal 10/09/23 10/09/23 History
tablet (Kaopectate (bismuth Issue
subsalicylate))
calcium carbonate (Tums) 300 mg PO DAILY Gastrointestinal 10/09/23 10/09/23 History
Issue
diltiazem HCl 120 mg capsule,24 120 mg PO DAILY Blood Pressure 10/09/23 10/09/23 History
hr,extended release
famotidine 40 mg tablet 40 mg PO DAILY Gastrointestinal 10/09/23 10/09/23 History
Issue
flecainide 50 mg tablet 50 mg PO Q12H Arrhythmia 10/09/23 10/09/23 History
omeprazole 40 mg capsule,delayed 40 mg PO DAILY Gastrointestinal 10/09/23 10/09/23 History
release Issue
trazodone 100 mg tablet 100 mg PO HSPRN PRN sleep 10/09/23 10/09/23 History
folic acid-vit B6-vit B12 2.5 1 tab PO DAILY 30 days #30 tabs 10/10/23 Rx
mg-25 mg-2 mg tablet (WesTab Max)
apixaban 2.5 mg tablet (Eliquis) 2.5 mg PO BID 03/22/24 03/22/24 History
trazodone 50 mg tablet mg HS PRN insomnia 03/22/24 History
Review of Systems
-
History Source: Patient
All other systems: Negative unless noted
Constitutional: Fatigue
EENT: No Symptoms
Respiratory: Cough and Trouble Breathing
Cardiac: No Symptoms
Abdomen/GI: No Symptoms
: No Symptoms
Musculoskeletal: No Symptoms
Skin: No Symptoms
Neurological: No Symptoms
Endocrine: No Symptoms
Hematologic/Lymphatic: No Symptoms
Physical Exam
Vital Signs
Temp Pulse Resp BP Pulse Ox
98.5 F 90 16 156/79 98
03/23/24 11:13 03/23/24 11:13 03/23/24 11:13 03/23/24 11:13 03/23/24 11:13
Lab Results
03/23/24 05:20
03/23/24 05:20
Troponin I Cancelled 03/23/24 17:08
Anv-E-Celmfyihrob Pept [id number] pg/ml 03/22/24 19:41
Physical Exam
General: Well Developed, Well Nourished, No Apparent Distress and Comfortable
HEENT: Normocephalic, Anicteric and Moist Mucous Membranes
Respiratory: Crackles and Non Labored Respirations
Cardiac: S1/S2 and Regular Rhythm; Negative Peripheral Edema
Breast: Deferred by me
GI: Soft, Non Tender, Non Distended and Normal Bowel Sounds
Rectal: Deferred by Provider
Genito-urinary: No Costovertebral Tender
Musculoskeletal: No Clubbing, No Cyanosis and No Edema
Skin: Warm and Dry
Neuro: Alert
Hematologic/Lymphatic: No Lymphadenopathy
Psych: Calm
Impression / Plan
-
IMPRESSION/PLAN: 83F with paroxysmal atrial fibrillation (on flecainide and apixaban), iron deficiency anemia, bowel obstruction status post resection (early ), and hypertension who presented to the emergency department with a chief complaint
of shortness of breath.
Primary label paster: Dr. Jackson from [facility]
Acute hypoxic respiratory failure, in the setting of viral URI and acute heart failure
-Heart failure management as below
-Wean O2 as tolerated, currently on 4 L nasal cannula
-URI management per primary service
Heart failure, acute, presumed HFpEF - NEW
-CXR with small to moderate bilateral pleural effusions in the setting of hypoxia and an elevated proBNP
-She had an allergic reaction to furosemide (documented sulfa allergy as well), now on ethacrynic acid
-Only 1 dose of diuretic today given her hypokalemia, currently 2.8, reassess if we can do BID dosing tomorrow
-Case management to ferreira SGLT2i, consider spironolactone
-Trend daily weight, I/O, and BMP with diuresis
-Heart failure education
-Update echocardiogram
Abnormal troponin, nonischemic myocardial injury in the setting of acute heart failure
-Peak troponin 0.104 in the absence of chest pain
-EKG stable
Paroxysmal atrial fibrillation
-Stable in sinus rhythm with PACs, on flecainide and diltiazem
-Oral Anticoagulation: Apixaban 2.5 mg twice daily (weight <60 kg, age >80), she denies missed doses and abnormal bleeding
-[id number]: Score at least 5 (Heart failure, HTN, age 75 or more, female gender)
Iron-deficiency anemia, chronic
Daily EtOH
Former smoker, continued cessation recommended
Data Reviewed
-
EKG: Report Reviewed by me
Labs: Labs Reviewed by me
Old Records: Requested
[2024-03-23] MEDS: ALDACTONE 25 MG PO (14:27)
--- NOTE | 2024-03-23 16:57 | CM ---
Alert awake oriented patient who lives alone in a 2 story home with 0 steps to enter and 14 to bed bathroom. She is independent in driving and in all activities of daily living.Offered VN she declined.
Uses a cane and has new oxygen in
Never had VN/SNF
Pharmacy [facility]
PCP Dr Thomson
PLAN Home no needs
[2024-03-24 02:52] VITALS: BP 122/63
[2024-03-24 06:06] LABS: Hematocrit 35.4 % (37.0-47.0); Hemoglobin 10.7 g/dL (12.0-16.0); Mean Corp Hgb Conc. 30.2 g/dL (33.0-37.0); Mean Corpuscular Hgb 25.9 pg (27.0-31.0); Mean Corpuscular Volume 85.7 fL (81.0-99.0); Mean Platelet Volume 7.9 fL (7.4-10.4); Platelet Count 369 10^3/uL (130-400); Red Blood Cell Count 4.13 10^6/uL (4.20-5.40); Red Cell Dist. Width 16.7 % (11.5-14.5); White Blood Cell Count 11.1 10^3/uL (4.8-10.8)
[2024-03-24 06:19] LABS: Blood Urea Nitrogen 19 mg/dl (7-17); Calcium 7.9 mg/dl (8.4-10.2); Chloride 89 mmol/L (98-107); Estimated Creatinine Clearance 45 ml/min; Glucose 86 mg/dl (70-99); Sodium 136 mmol/L (135-145); eGFR > 60.00
[2024-03-24 06:32] LABS: Potassium 3.4 mmol/L (3.5-5.1)
[2024-03-24 07:05] VITALS: BP 143/62
[2024-03-24 07:21] LABS: Carbon Dioxide 43 mmol/L (22-30)
[2024-03-24] MEDS: ALDACTONE 25 MG PO (08:13)
[2024-03-24] MEDS: PROTONIX 40 MG PO (08:14)
[2024-03-24] MEDS: ELIQUIS 2.5 MG PO ×2 (08:14→19:38)
[2024-03-24] MEDS: CARDIZEM CD 120 MG PO (08:14)
[2024-03-24] MEDS: TAMBOCOR 50 MG PO ×2 (08:14→19:38)
[2024-03-24] MEDS: PEPCID 20 MG PO (08:14)
[2024-03-24] MEDS: EDECRIN 50 MG IV (08:15)
--- NOTE | 2024-03-24 08:47 | W.PN.HOSP.TC ---
Today's Communication/Plan
-
Cont diuretics
Assessment / Plan
Assessment / Plan
Physical Exam
General: Acutely ill
HEENT: NormoCephalic, Moist mucous membranes and Atraumatic
Respiratory: Coarse crackles bilaterally, no wheezes or rhonchi.
Cardiac: S1/S2 and Regular Rhythm; No Murmur or Rub
GI: Soft, Non Tender, Non Distended and Normal Bowel Sounds; No Organomegaly
Rectal: Deferred by Provider
Musculoskeletal: Bilateral lower extremity edema. No Clubbing, No Cyanosis
Skin: No Rash
Neuro: Nonfocal/grossly intact, cognitive deficits present
A/P:
Acute hypoxic respiratory failure:
Likely heart failure related and recent URI
Continue IV diuretics today and will change to oral in am
Taper off oxygen
Updated tvhcmipz-ao-[id number] yesterday on 03/23
Cardiology consult appreciated
PT OT eval
Acute diastolic congestive heart failure:
IV ethacrynic acid 50 mg daily and will change to oral tmorrow
Cont spironolactone
SGLT-inh cost prohibitive
Monitor ins and outs
Monitor daily weight
Updated echocardiogram
Hypokalemia:
Replete and trend
URI:
Supportive care
Allergic reaction:
Due to Lasix
Given Benadryl and IV Decadron
Leukocytosis:
Reactive due to steroids
WBC went down from 18 to 11
Elevated troponin:
Elevated troponin due to non-ischemic myocardial injury in the setting of acute heart failure
Paroxysmal A-fib:
Continue rate control, diltiazem 120 mg p.o. daily
Continue anticoagulation, flecainide 50 mg p.o. every 12 hours
Continue anticoagulant, Eliquis 2.5 mg p.o. twice a day
Chronic iron deficiency anemia:
No signs of active bleeding
Continue to monitor hemoglobin
Alcohol use disorder:
Monitor for signs of alcohol withdrawal
Cognitive deficits:
Monitor behavior and mental status
GERD:
Continue PPI and H2 rosenda
DVT prophylaxis:
Eliquis
CODE STATUS:
DNR
Anticipated Discharge: Within 24 hours
Subjective/Interval History
-
Date of Service: March 24, 2024
Patient feels better overall. Still wants to go home but ok to stay.
Objective Data
-
Labs:
Laboratory Results
03/24/24
05:03
WBC 11.1 H
Hgb 10.7 L
Hct 35.4 L
Plt Count 369 D
Sodium 136
Potassium 3.4 L
Chloride 89 L
Carbon Dioxide 43 H
BUN 19 H
Creatinine 0.8
Glucose 86
Calcium 7.9 L
Vital Signs:
Vital Signs
Temp Pulse Resp BP Pulse Ox
98.5 F 88 17 143/62 97
03/24/24 07:05 03/24/24 08:15 03/24/24 07:05 03/24/24 08:15 03/24/24 07:05
I&O
03/23/24 03/24/24 03/25/24
06:59 06:59 06:59
Intake Total 720 / 720
Balance 720 / 720
[2024-03-24 09:00] VITALS: BMI 20.1
--- NOTE | 2024-03-24 09:01 | W.PN.CD ---
Addendum entered and electronically signed by Sanjay Burdick MD 03/24/24 10:52:
-
-
The SGLT2-I are too expensive with patient's current insurance, will not add.
-
-
Original Note:
Today's Communication / Plan
-
Move to oral diuretic
Check co-pay as SGLT2-I
Impression / Plan
-
Background: 83F with paroxysmal atrial fibrillation (on flecainide and apixaban), iron deficiency anemia, bowel obstruction status post resection (early ), and hypertension who presented to the emergency department with a chief complaint of
shortness of breath.
Primary mash tub cooker operator: Dr. Jackson from [facility]
Acute hypoxic respiratory failure
- Mixed etiology suspected: viral URI and acute heart failure
Heart failure, acute, presumed HFpEF - NEW
- PBNP on admit 11,800 with normal Cr
- CXR with small to moderate bilateral pleural effusions and finding c/w heart failure
- She had an allergic reaction to furosemide (documented sulfa allergy as well), now on ethacrynic acid
- Plan: oral ethacrynic acid, spironolactone, SGLT2-I if cost OK
- Check cost of SGLT2-I
- Dry weight not determined
Abnormal troponin, nonischemic myocardial injury in the setting of acute heart failure, peak troponin 0.104, no chest pain, no dynamic EKG findings
Paroxysmal atrial fibrillation
- Stable in sinus rhythm with PACs, on flecainide and diltiazem
- Oral Anticoagulation: Apixaban 2.5 mg twice daily (weight <60 kg, age >80), she denies missed doses and abnormal bleeding
- [id number]: Score at least 5 (Heart failure, HTN, age 75 or more, female gender)
Hx Iron-deficiency anemia, chronic
Daily EtOH
Former smoker, continued cessation recommended
Are there memory issues??
Subjective:
Eager for home
Echo 03/23/2024: LVEF 60-65%, ANILA, mild-mod TR, est PASP 60-65 mmHg.
Physical Exam
Vital Signs/Labs
Vital Signs
Temp Pulse Resp BP Pulse Ox
98.5 F 88 17 143/62 97
03/24/24 07:05 03/24/24 08:15 03/24/24 07:05 03/24/24 08:15 03/24/24 07:05
03/23/24 03/24/24 03/25/24
06:59 06:59 06:59
Actual Weight 54.941 kg
03/24/24 05:03
03/24/24 05:03
03/22/24
19:41
Snc-X-Kuagpgmgbqs Pept [id number]
LAB Results
03/22/24 03/23/24 03/23/24
19:41 00:48 05:20
Troponin I 0.094 H* 0.104 H* 0.095 H*
03/23/24 03/23/24
11:08 17:08
Troponin I Cancelled Cancelled
Physical Exam
Constitutional: No acute distress
EENT: Anicteric
Cardiovascular: Rhythm & rate is regular
Respiratory: Respiratory effort normal and Lungs clear to auscul.
GI: Soft and Distention absent
Neuro/Psych: Alert
Data Reviewed
-
Date of Service: March 24, 2024
[2024-03-24 11:05] VITALS: BP 110/55
[2024-03-24 15:05] VITALS: BP 125/58
[2024-03-24 19:00] VITALS: BP 134/61
[2024-03-24] MEDS: DESYREL 50 MG PO (22:11)
[2024-03-24 23:00] VITALS: BP 143/65
[2024-03-25] VITALS (9 sets, daily range): BP systolic 82–137; BP diastolic 43–75; PULSE 72–74; O2SAT 96–97; BMI 20.2
[2024-03-25] MEDS: CARDIZEM CD 120 MG PO (04:35)
--- NOTE | 2024-03-25 04:38 | PTCARENOTE ---
Pt seen on monitor sustaining heart rate in the 150s. This RN went to check on pt and found her to be asleep. Pt woken up to ask if she was feeling any symptoms. Pt denied palpitations, feeling lightheaded, etc. BP 113/76, temp 98.9, SpO2 95% on 2L
NC, HR 144. MINERALOGY PROFESSOR notified of pt status. MINERALOGY PROFESSOR on floor to assess pt. This RN was told by MINERALOGY PROFESSOR to give 0800 scheduled Cardizem early at this time. STAT Mag and morning labs drawn. Pending results. Will continue to monitor pt.
[2024-03-25 04:57] LABS: Hematocrit 35.8 % (37.0-47.0); Mean Corp Hgb Conc. 30.7 g/dL (33.0-37.0); Mean Corpuscular Hgb 25.7 pg (27.0-31.0); Mean Corpuscular Volume 83.6 fL (81.0-99.0); Mean Platelet Volume 8.1 fL (7.4-10.4); Platelet Count 362 10^3/uL (130-400); Red Blood Cell Count 4.28 10^6/uL (4.20-5.40); Red Cell Dist. Width 16.6 % (11.5-14.5); White Blood Cell Count 14.3 10^3/uL (4.8-10.8)
[2024-03-25 05:19] LABS: Blood Urea Nitrogen 15 mg/dl (7-17); Calcium 8.1 mg/dl (8.4-10.2); Chloride 89 mmol/L (98-107); Estimated Creatinine Clearance 59 ml/min; Glucose 100 mg/dl (70-99); Magnesium 1.5 mg/dl (1.6-2.3); Potassium 3.4 mmol/L (3.5-5.1); Sodium 137 mmol/L (135-145); eGFR > 60.00
[2024-03-25 05:43] LABS: Carbon Dioxide 41 mmol/L (22-30)
[2024-03-25] MEDS: TAMBOCOR 50 MG PO ×2 (07:17→19:51)
[2024-03-25] MEDS: ELIQUIS 2.5 MG PO ×2 (07:17→19:51)
[2024-03-25] MEDS: PROTONIX 40 MG PO (07:17)
[2024-03-25] MEDS: PEPCID 20 MG PO (07:17)
--- NOTE | 2024-03-25 08:54 | W.PN.HOSP.TC ---
Today's Communication/Plan
-
Rate and rhythm control. Diuresis. Replace electrolytes.
Assessment / Plan
Assessment / Plan
Physical Exam
General: Acutely ill
HEENT: NormoCephalic, Moist mucous membranes and Atraumatic
Respiratory: Coarse crackles bilaterally, no wheezes or rhonchi.
Cardiac: Irregular rate and rhythm; tachycardic; S1/S2; No Murmur or Rub
GI: Soft, Non Tender, Non Distended and Normal Bowel Sounds; No Organomegaly
Rectal: Deferred by Provider
Musculoskeletal: Bilateral lower extremity edema. No Clubbing, No Cyanosis
Skin: No Rash
Neuro: Nonfocal/grossly intact, cognitive deficits present
A/P:
Acute hypoxic respiratory failure:
Likely heart failure related and recent URI
Continue IV diuretics today and will change to oral in am
Taper off oxygen
Updated [id number], Delia today on 03/24--> she thinks she'd be best at rehab. I agree. Case management for discharge disposition.
Cardiology consult appreciated
PT OT eval home vs snf
Acute diastolic congestive heart failure:
IV ethacrynic acid 50 mg daily changed to oral
Cont spironolactone
SGLT-inh cost prohibitive
Monitor ins and outs
Monitor daily weight
Updated echocardiogram
Updated daughter over the phone today
Paroxysmal A-fib with RVR:
Cardiology aware
Electrolytes replacement
Continue cardiac monitoring
As below
Continue rate control, diltiazem 120 mg p.o. daily
Continue anticoagulation, flecainide 50 mg p.o. every 12 hours
Continue anticoagulant, Eliquis 2.5 mg p.o. twice a day
Bilateral pleural effusions:
Repeat chest x-ray in a.m. to assess for thoracentesis
Check procalcitonin in am
Hypokalemia:
Replete and trend
Hypomagnesemia:
Replete and trend
URI:
Supportive care
Allergic reaction:
Due to Lasix
Given Benadryl and IV Decadron
Leukocytosis:
Reactive due to steroids
WBC went down overall
Elevated troponin:
Elevated troponin due to non-ischemic myocardial injury in the setting of acute heart failure
Chronic iron deficiency anemia:
No signs of active bleeding
Continue to monitor hemoglobin
Alcohol use disorder:
Monitor for signs of alcohol withdrawal
Cognitive deficits:
Monitor behavior and mental status
GERD:
Continue PPI and H2 rosenda
DVT prophylaxis:
Eliquis
CODE STATUS:
DNR
Total time spent on today's encounter was 52 minutes which included time spent in counseling the patient/family regarding diagnosis and treatment plan as listed above, goals of care, and symptom management. Case was discussed with nursing staff,
specialists, and care coordinators/case management. All labs and imaging personally reviewed by me. Remainder the time spent in detailed review of previous records, lab data, imaging, and other medical provider documentation.
Anticipated Discharge: 24 - 48 hours
Subjective/Interval History
-
Date of Service: March 25, 2024
Patient went into atrial fibrillation. Patient also hypotensive when in A-fib. Feels tired. On supplemental oxygen
Objective Data
-
Labs:
Laboratory Results
03/25/24
04:38
WBC 14.3 H
Hgb 11.0 L
Hct 35.8 L
Plt Count 362
Sodium 137
Potassium 3.4 L
Chloride 89 L
Carbon Dioxide 41 H
BUN 15
Creatinine 0.6
Glucose 100 H
Calcium 8.1 L
Vital Signs:
Vital Signs
Temp Pulse Resp BP Pulse Ox
98.5 F 78 17 115/59 94
03/25/24 07:43 03/25/24 08:28 03/25/24 07:43 03/25/24 08:28 03/25/24 07:43
I&O
03/24/24 03/25/24 03/26/24
06:59 06:59 06:59
Intake Total 720 / 720 1380 / 1380 240 / 240
Balance 720 / 720 1380 / 1380 240 / 240
--- NOTE | 2024-03-25 09:45 | W.PN.CD ---
Today's Communication / Plan
-
in atrial flutter today ( in sinus on admit)
rate controlled
continue Eliquis
continue diltaizme and flecainide and monitor
monitor BP
wean O2 off inftolerated.
consider diuretic and monitor BP renal function and weights
Not on Farxiga due to cost
Impression / Plan
-
Background: 83F with paroxysmal atrial fibrillation (on flecainide and apixaban), iron deficiency anemia, bowel obstruction status post resection (early ), and hypertension who presented to the emergency department with a chief complaint of
shortness of breath.
Primary box press operator: Dr. Jackson from [facility]
Acute hypoxic respiratory failure
- Mixed etiology suspected: viral URI and acute heart failure
- stable on2 liters. Main complaint nasal congestion
- wean O2 off if tolerated
Heart failure, acute, presumed HFpEF - NEW
- PBNP on admit 11,800 with normal Cr
- CXR with small to moderate bilateral pleural effusions and finding c/w heart failure
- She had an allergic reaction to furosemide (documented sulfa allergy as well), now on ethacrynic acid
- Plan: oral ethacrynic acid, spironolactone, SGLT2-I if cost OK
- SGLT2-I not bveing given due to expense
- Dry weight not determined
- one low BP reading. diuretic held thismorning. Improvement without intervention ( ? accuracy of BP reading). Monitor and resume diuretic
Abnormal troponin, nonischemic myocardial injury in the setting of acute heart failure, peak troponin 0.104, no chest pain, no dynamic EKG findings
Paroxysmal atrial fibrillation
- in sinus on intial ECG on flecainide and diltiazem
- in rate controlled atrial fluttter 03/25/24
- Oral Anticoagulation: Apixaban 2.5 mg twice daily (weight <60 kg, age >80), she denies missed doses and abnormal bleeding
- [id number]: Score at least 5 (Heart failure, HTN, age 75 or more, female gender)
Hx Iron-deficiency anemia, chronic
Daily EtOH
Former smoker, continued cessation recommended
Are there memory issues??
Subjective:
Eager for home
Echo 03/23/2024: LVEF 60-65%, ANILA, mild-mod TR, est PASP 60-65 mmHg.
Physical Exam
Vital Signs/Labs
Vital Signs
Temp Pulse Resp BP Pulse Ox
98.5 F 78 17 115/59 94
03/25/24 07:43 03/25/24 08:28 03/25/24 07:43 03/25/24 08:28 03/25/24 07:43
03/24/24 03/25/24 03/26/24
06:59 06:59 06:59
Actual Weight 55.111 kg
03/25/24 04:38
03/25/24 04:38
Magnesium 1.5 mg/dl (1.6-2.3) L 03/25/24 04:38
Magnesium Cancelled 03/25/24 04:38
03/22/24
19:41
Lhz-M-Fzrjuprccck Pept [id number]
LAB Results
03/22/24 03/23/24 03/23/24
19:41 00:48 05:20
Troponin I 0.094 H* 0.104 H* 0.095 H*
03/23/24 03/23/24
11:08 17:08
Troponin I Cancelled Cancelled
Physical Exam
Constitutional: No acute distress and Other (c/o nasal congestion)
Cardiovascular: Rhythm & rate is regular
Respiratory: Wheeze Absent, Rhonchi Absent and Other (decreased at bases)
GI: Soft and Non tender
Neuro/Psych: Alert
Data Reviewed
-
Date of Service: March 25, 2024
Medical Decision Making: Reviewed Test Results
Echo: Report Reviewed by me
Medical Tests (PFT, Pathology etc): Report Reviewed by me
Labs: Labs Reviewed by me
[2024-03-25] MEDS: MAGNESIUM SULFATE 50 IV (10:08)
[2024-03-25] MEDS: KCL 40 MEQ PO (10:09)
[2024-03-25] MEDS: ALDACTONE PO (10:10)
[2024-03-25] MEDS: EDECRIN PO (10:12)
[2024-03-25] MEDS: DESYREL 50 MG PO (22:21)
[2024-03-26 03:50] VITALS: BP 119/57
[2024-03-26 06:00] VITALS: BMI 20.7
[2024-03-26 06:18] LABS: Hematocrit 34.9 % (37.0-47.0); Hemoglobin 10.4 g/dL (12.0-16.0); Mean Corp Hgb Conc. 29.8 g/dL (33.0-37.0); Mean Corpuscular Hgb 25.3 pg (27.0-31.0); Mean Corpuscular Volume 84.9 fL (81.0-99.0); Mean Platelet Volume 8.2 fL (7.4-10.4); Platelet Count 361 10^3/uL (130-400); Red Blood Cell Count 4.11 10^6/uL (4.20-5.40); Red Cell Dist. Width 16.5 % (11.5-14.5); White Blood Cell Count 11.5 10^3/uL (4.8-10.8)
[2024-03-26 06:48] LABS: Blood Urea Nitrogen 15 mg/dl (7-17); Calcium 7.4 mg/dl (8.4-10.2); Chloride 86 mmol/L (98-107); Estimated Creatinine Clearance 61 ml/min; Glucose 83 mg/dl (70-99); Magnesium 1.9 mg/dl (1.6-2.3); Potassium 3.9 mmol/L (3.5-5.1); Sodium 134 mmol/L (135-145); eGFR > 60.00
[2024-03-26 07:05] VITALS: BP 143/67
[2024-03-26 07:05] LABS: Procalcitonin < 0.05 ng/ml (0.0-0.25)
[2024-03-26 07:32] LABS: Carbon Dioxide 44 mmol/L (22-30)
--- NOTE | 2024-03-26 09:27 | W.PN.HOSP.TC ---
Today's Communication/Plan
-
Oral diuretics, antiarrhythmics, rate control. Discharge planning
Assessment / Plan
Assessment / Plan
Physical Exam
General: Acutely ill
HEENT: NormoCephalic, Moist mucous membranes and Atraumatic
Respiratory: Coarse crackles bilaterally, no wheezes or rhonchi.
Cardiac: Irregular rate and rhythm; tachycardic; S1/S2; No Murmur or Rub
GI: Soft, Non Tender, Non Distended and Normal Bowel Sounds; No Organomegaly
Rectal: Deferred by Provider
Musculoskeletal: Bilateral lower extremity edema. No Clubbing, No Cyanosis
Skin: No Rash
Neuro: Nonfocal/grossly intact, cognitive deficits present
A/P:
Acute hypoxic respiratory failure:
Likely heart failure related and recent URI
Continue diuretics and changed to oral today
Taper off oxygen
Updated [id number], Delia on 03/24--> she thinks she'd be best at rehab. I agree. Case management for discharge disposition.
Cardiology consult appreciated-discussed with cardio today
Procal <0.05
PT OT eval home vs snf
Acute diastolic congestive heart failure:
IV ethacrynic acid 50 mg daily changed to oral
Cont spironolactone
SGLT-inh cost prohibitive
Monitor ins and outs
Monitor daily weight
Updated echocardiogram
Updated daughter over the phone today
Paroxysmal A-fib with RVR:
Cardiology aware
Electrolytes replacement
Continue cardiac monitoring
As below
Continue rate control, diltiazem 120 mg p.o. daily
Continue anticoagulation, flecainide 50 mg p.o. every 12 hours
Continue anticoagulant, Eliquis 2.5 mg p.o. twice a day
Bilateral pleural effusions:
Repeat chest x-ray in a.m. to assess for thoracentesis
Check procalcitonin in am
Hyponatremia:
Mild
No need to further workup
Hypokalemia:
Replete and trend
Hypomagnesemia:
Replete and trend
URI:
Supportive care
Allergic reaction:
Due to Lasix
Given Benadryl and IV Decadron
Leukocytosis:
Reactive due to steroids
WBC went down overall
Elevated troponin:
Elevated troponin due to non-ischemic myocardial injury in the setting of acute heart failure
Chronic iron deficiency anemia:
No signs of active bleeding
Continue to monitor hemoglobin
Alcohol use disorder:
Monitor for signs of alcohol withdrawal
Cognitive deficits:
Monitor behavior and mental status
GERD:
Continue PPI and H2 rosenda
DVT prophylaxis:
Eliquis
CODE STATUS:
DNR
Anticipated Discharge: Within 24 hours
Subjective/Interval History
-
Date of Service: March 26, 2024
Patient feels well. Blood pressure improving. Afebrile
Objective Data
-
Labs:
Laboratory Results
03/26/24
05:02
WBC 11.5 H
Hgb 10.4 L
Hct 34.9 L
Plt Count 361
Sodium 134 L
Potassium 3.9
Chloride 86 L
Carbon Dioxide 44 H
BUN 15
Creatinine 0.6
Glucose 83
Calcium 7.4 L
Vital Signs:
Vital Signs
Temp Pulse Resp BP Pulse Ox
98.0 F 80 17 143/67 93
03/26/24 07:05 03/26/24 07:05 03/26/24 07:05 03/26/24 07:05 03/26/24 07:05
I&O
03/25/24 03/26/24 03/27/24
06:59 06:59 06:59
Intake Total 1380 / 1380 420 / 420
Balance 1380 / 1380 420 / 420
--- NOTE | 2024-03-26 09:41 | CM ---
Spoke with Mita [phone] reviewed PT OT .
Mita requested [facility]
Referral in care port.
Pt has Medicare.
Pt on oxygen 1.5 liter POx 93%.
PLAN To Snf after located
[2024-03-26] MEDS: PROTONIX 40 MG PO (09:50)
[2024-03-26] MEDS: PEPCID 20 MG PO (09:50)
[2024-03-26] MEDS: ALDACTONE 25 MG PO (09:50)
[2024-03-26] MEDS: EDECRIN 50 MG PO (09:50)
[2024-03-26] MEDS: CARDIZEM CD 120 MG PO (09:51)
[2024-03-26] MEDS: TAMBOCOR 50 MG PO ×2 (09:51→21:02)
[2024-03-26] MEDS: ELIQUIS 2.5 MG PO ×2 (09:51→21:02)
[2024-03-26 11:05] VITALS: BP 110/58
--- NOTE | 2024-03-26 11:35 | W.PN.CD ---
Today's Communication / Plan
-
Cont meds
No new recommendation
We will sign off please call with questions/concers.
She knows to follow up with home hairspring setter.
Impression / Plan
-
Background: 83F with paroxysmal atrial fibrillation (on flecainide and apixaban), iron deficiency anemia, bowel obstruction status post resection (early ), and hypertension who presented to the emergency department with a chief complaint of
shortness of breath.
Primary hairspring setter: Dr. Jackson from [facility]
Acute hypoxic respiratory failure
- Mixed etiology suspected: viral URI and acute heart failure
- stable on2 liters. Main complaint nasal congestion
- wean O2 off if tolerated
Heart failure, acute, presumed HFpEF - NEW
- PBNP on admit 11,800 with normal Cr
- CXR with small to moderate bilateral pleural effusions and finding c/w heart failure
- She had an allergic reaction to furosemide (documented sulfa allergy as well), now on ethacrynic acid
- Plan: oral ethacrynic acid, spironolactone, SGLT2-I unable to afford
- Dry weight not determined
- one low BP reading. diuretic held this morning. Improvement without intervention ( ? accuracy of BP reading). Monitor and resume diuretic
Abnormal troponin, nonischemic myocardial injury in the setting of acute heart failure, peak troponin 0.104, no chest pain, no dynamic EKG findings
Paroxysmal atrial fibrillation
- in sinus on intial ECG on flecainide and diltiazem
- in rate controlled atrial fluttter 03/25/24
- Oral Anticoagulation: Apixaban 2.5 mg twice daily (weight <60 kg, age >80), she denies missed doses and abnormal bleeding
- [id number]: Score at least 5 (Heart failure, HTN, age 75 or more, female gender)
Hx Iron-deficiency anemia, chronic
Daily EtOH
Former smoker, continued cessation recommended
Are there memory issues??
Subjective:
Eager for home, cont ethacrynic acid should f/u with home hairspring setter
Echo 03/23/2024: LVEF 60-65%, ANILA, mild-mod TR, est PASP 60-65 mmHg.
Physical Exam
Vital Signs/Labs
Vital Signs
Temp Pulse Resp BP Pulse Ox
98.0 F 62 17 110/58 96
03/26/24 11:05 03/26/24 11:05 03/26/24 11:05 03/26/24 11:05 03/26/24 11:05
03/25/24 03/26/24 03/27/24
06:59 06:59 06:59
Actual Weight 121 lb 8 oz 124 lb 1.924 oz
03/26/24 05:02
03/26/24 05:02
Magnesium 1.9 mg/dl (1.6-2.3) 03/26/24 05:02
03/22/24
19:41
Pjo-B-Ljfrkuexywc Pept [id number]
Physical Exam
Constitutional: No acute distress and Comfortable
EENT: Anicteric
Cardiovascular: Rhythm/rate is irregular
Respiratory: Respiratory effort normal and Lungs clear to auscul.
GI: Soft
Neuro/Psych: Alert and Oriented
Data Reviewed
-
Date of Service: March 26, 2024
EKG: Tracing Personally Visualized and interpreted (a flutter)
Echo: Report Reviewed by me
Labs: Labs Reviewed by me
[2024-03-26 15:05] VITALS: BP 110/61
[2024-03-26 19:00] VITALS: BP 114/53
--- NOTE | 2024-03-26 22:45 | PTCARENOTE ---
Patient requesting Tylenol this evening for 'muscle pain,' and states that she takes this regularly at home for this reason. No PRNs ordered or available to provide to patient. Notified GRETCHEN Fernandez -- PRN Tylenol ordered, see MAR. Will continue to
monitor.
[2024-03-26 23:00] VITALS: BP 131/69
[2024-03-27 06:00] VITALS: BMI 20.2
[2024-03-27 07:30] VITALS: BP 130/68
--- NOTE | 2024-03-27 08:45 | W.PN.HOSP.TC ---
Today's Communication/Plan
-
Discharge today
Assessment / Plan
Assessment / Plan
Physical exam:
General: Well Developed, Well Nourished and No Apparent Distress
HEENT: Normocephalic, Atraumatic and Moist Mucous Membranes
Respiratory: Clear to Auscultation; Negative Wheezes, Rales or Rhonchi
Cardiac: Regular Rhythm and S1/S2
GI: Soft, Nontender and Nondistended
Musculoskeletal: No Clubbing, No Cyanosis and No Edema
Neuro: Awake, Alert and Oriented, no neurodeficit
Psych: Calm, cognitive deficits present
A/P:
Acute hypoxic respiratory failure:
Likely heart failure related and recent URI
Continue diuretics and changed to oral today
Taper off oxygen
Updated [id number], Delia on 03/24--> she thinks she'd be best at rehab. I agree. Case management for discharge disposition.
Cardiology consult appreciated-discussed with cardio today
Procal <0.05
PT OT eval home vs snf
Acute diastolic congestive heart failure:
IV ethacrynic acid 50 mg daily changed to oral
Cont spironolactone
SGLT-inh cost prohibitive
Monitor ins and outs
Monitor daily weight
Updated echocardiogram
Updated daughter at bedside today
Plan to discharge today
Paroxysmal A-fib with RVR:
Cardiology aware
Electrolytes replacement
Continue cardiac monitoring
As below
Continue rate control, diltiazem 120 mg p.o. daily
Continue anticoagulation, flecainide 50 mg p.o. every 12 hours
Continue anticoagulant, Eliquis 2.5 mg p.o. twice a day
Bilateral pleural effusions:
Repeat chest x-ray today and effusions are less. Discussed with radiology and no need for thoracentesis.
Continue oral diuretics and follow-up as outpatient
Hyponatremia:
Mild
No need to further workup
Hypokalemia:
Replete and trend
Hypomagnesemia:
Replete and trend
URI:
Supportive care
Allergic reaction:
Due to Lasix
Given Benadryl and IV Decadron
Leukocytosis:
Reactive due to steroids
WBC went down overall
Elevated troponin:
Elevated troponin due to non-ischemic myocardial injury in the setting of acute heart failure
Chronic iron deficiency anemia:
No signs of active bleeding
Continue to monitor hemoglobin
Alcohol use disorder:
Monitor for signs of alcohol withdrawal
Cognitive deficits:
Monitor behavior and mental status
GERD:
Continue PPI and H2 rosenda
DVT prophylaxis:
Eliquis
CODE STATUS:
DNR
Anticipated Discharge: Today
Subjective/Interval History
-
Date of Service: March 27, 2024
No new complaints. On minimal supplemental oxygen
Objective Data
-
Labs:
Laboratory Results
03/27/24
07:57
Sodium Pending
Potassium Pending
Chloride Pending
Carbon Dioxide Pending
BUN Pending
Creatinine Pending
Glucose Pending
Calcium Pending
Vital Signs:
Vital Signs
Temp Pulse Resp BP Pulse Ox
98.4 F 76 16 130/68 93
03/27/24 07:30 03/27/24 07:30 03/27/24 07:30 03/27/24 07:30 03/27/24 07:30
I&O
03/26/24 03/27/24 03/28/24
06:59 06:59 06:59
Intake Total 420 / 420 1380 / 1380
Balance 420 / 420 1380 / 1380
[2024-03-27] MEDS: EDECRIN 50 MG PO (08:54)
[2024-03-27] MEDS: ALDACTONE 25 MG PO (08:54)
[2024-03-27] MEDS: PROTONIX 40 MG PO (08:54)
[2024-03-27] MEDS: PEPCID 20 MG PO (08:54)
[2024-03-27] MEDS: ELIQUIS 2.5 MG PO (08:55)
[2024-03-27] MEDS: TAMBOCOR 50 MG PO (08:55)
[2024-03-27] MEDS: CARDIZEM CD 120 MG PO (08:55)
[2024-03-27 09:08] LABS: Blood Urea Nitrogen 14 mg/dl (7-17); Calcium 8.2 mg/dl (8.4-10.2); Chloride 85 mmol/L (98-107); Estimated Creatinine Clearance 59 ml/min; Glucose 87 mg/dl (70-99); Magnesium 1.7 mg/dl (1.6-2.3); Potassium 3.7 mmol/L (3.5-5.1); Sodium 134 mmol/L (135-145); eGFR > 60.00
[2024-03-27 09:30] LABS: Carbon Dioxide 41 mmol/L (22-30)
[2024-03-27 11:30] VITALS: BP 127/59
--- NOTE | 2024-03-27 12:47 | PTCARENOTE ---
pt had visitor in room. I was across the guillen and i heard loud voices and comotion in room 3394. The visitor in room attempted to get patient oob with SCDS attached and right side bed rail up and pt had fell onto the bedside comode hardly. no
bruises noted. I educated both the patient and the family member that the patient should not be up without staff. both verbalized an undersstanding and agreed to call. the patient has proceeded to get up five times since then without any staff.
Yellow magnet on door, yellow bracelet on and each member of care team notfied about patients high fall risk SCDs remain off and i have offered her toileting every forty minutes to anticipate her needs. She received diuretics this am.
--- NOTE | 2024-03-27 12:48 | W.DCSUMMARY ---
Discharge Summary
Discharge Data
Date of Admission: 03/22/24
Date of Discharge: 03/27/24
-
Pending Results: No
Hospital Course
Patient 83 years old female with history of A-fib, anemia, hypertension, came into the hospital shortness of breath and found to be in heart failure. Cardiology consulted. She was diuresed appropriately. She did have an allergic reaction to Lasix
so she responded to ethacrynic acid. She also went into A-fib RVR but was able to be controlled with heart rate control agents and own antiarrhythmic. She also had bilateral pleural effusion and after diuresis the bilateral pleural effusions
improved substantially. Discussed with radiology and there was no need for thoracentesis given improvement of her effusions. She did require oxygen during this hospital stay but her oxygen requirements went down significantly as well. There was
no signs of infection. She was discharged on oral ethacrynic acid and spironolactone. She participated with PT and OT and she was determined to go to skilled facility. Patient is stable for discharge today.
Discharge duration: 35 minutes
Discharge Plan
-
Patient Disposition: Senior Care/SNF
Discharge Diagnosis/Procedures: Acute hypoxic respiratory failure. Acute diastolic congestive heart failure. Paroxysmal atrial fibrillation. Hyponatremia. Bilateral pleural effusions. Hypokalemia. Hypomagnesemia.
Diet: Low Cholesterol, 2 Gram Sodium and Restrict fluids to 48 oz
Activity: As tolerated
Blood Work: Please PCP to order CBC, BMP within 1 week
Specialty Instructions: Weigh Daily- Call MD for wt gain/loss 3 lbs overnight/5 lbs in 1 week
Instructions: *PCP/Other Diversional Therapist'S Assistant Heart Failure Instructions
Referrals:
Eyad Schaefer MD [Active] - in one to two weeks
Kt Lee MD [Family Provider] - in less than 1 week
Prescriptions:
New
ethacrynic acid 25 mg Tablet
50 mg PO DAILY Qty: 30 0RF
spironolactone 25 mg Tablet
25 mg PO DAILY 30 Days Qty: 30 0RF
Continued
famotidine 40 mg Tablet
40 mg PO DAILY
Tums 300 mg (750 mg) Tablet,Chewable
300 mg PO DAILY
omeprazole 40 mg Capsule,Delayed Release(Dr/Ec)
40 mg PO DAILY
acetaminophen [Tylenol Extra Strength] 500 mg Tablet
500 mg PO Q6HPRN PRN (Reason: mild pain)
trazodone 100 mg Tablet
100 mg PO HSPRN PRN (Reason: sleep)
diltiazem HCl 120 mg Capsule,Extended Release 24 Hr
120 mg PO DAILY
flecainide 50 mg Tablet
50 mg PO Q12H
Kaopectate (bismuth subsalicy) 262 mg Tablet
524 mg PO DAILY
WesTab Max 2.5-25-2 mg Tablet
1 tab PO DAILY 30 Days Qty: 30 0RF
Eliquis 2.5 mg Tablet
2.5 mg PO BID
trazodone 50 mg Tablet
HS PRN (Reason: insomnia )
Discharge Orders:
Discharge Patient (As Directed); Ordered 03/27/24
Ordered By: Luis Gomez
Discharge Date and Time
Discharge Date/Time: 03/27/24 19:34
Print Language: PORTUGUESE
--- NOTE | 2024-03-27 15:15 | CM ---
Met dgtr and then called her confirm plan to d/c today to [facility]. She is in agreement.
Ambulance forms done and set for apple picker at 1600 today.
[2024-03-27 15:50] VITALS: BP 127/61
--- NOTE | 2024-03-27 19:34 | PTCARENOTE ---
Patient for discharge this afternoon, set for 4pm but transport company running hours late. Arrived at change of shift to get report, during the middle of report ambulance transport team arrived to take patient to SNF. Dayshift RN provided report to
ambulance team. detention also notified by dayshift staff of the delay in patient return. Out of hospital DNR form signed by MAPPING TECHNICIAN and provided to transport team, as they needed this to transport patient. Patient DCd at 19:34pm.
--- NOTE | 2024-03-29 10:56 | W.HF.CON ---
Heart Failure
- LV Function
Left ventricular function study result: LV Ejection fraction >/= 50%
Ejection Fraction Percentage: 60-65
- ARNI
Patient already on ARNI: No
Heart Failure ARNI Not Indicated: LV Ejection Fraction >/= 40%
- ACEI/ARB
Patient already on ACEI/ARB: No
Heart Failure ACEI/ARB Not Indicated: LV Ejection Fraction > 40%
- Beta Irvin
Patient already on Evidence Based Beta Irvin: No
Heart Failure Evidence Based Beta Irvin Not Indicated: LV Ejection Fraction > 40%
- Mineralocorticord Receptor Antagonist
Patient already on MRA: Yes
- SGLT-2 Inhibitor
Patient already on SGLT-2 Inhibitor: No
Heart Failure SGLT-2 Inhibitor Contraindication: Patient Refusal
- Afib Anticoagulation
Patient already on Anticoagulation for Afib: Yes
- NYHA CHF Classification
NYHA CHF Classification Level: Class III - Symptoms w/ min exertion, interferes w/ nml daily activity
- ACC/AHA Stage
ACC/AHA Stage: Stage C: Symptomatic Heart Failure
== END 2024-03-27 19:34 | DRG 291 ==
LOC: 3 WEST ACU 22:27
PROVIDERS: Clinical Nurse Specialist Family Health; Nurse Practitioner Gerontology; Physician Assistant Medical; ADMITTING PHYSICIAN Hospitalist; ATTENDING PHYSICIAN Hospitalist; CONSULT PHYSICIAN Internal Medicine; EMERGENCY PHYSICIAN Emergency Medicine; FAMILY PHYSICIAN Family Medicine
DX: I11.0 Hypertensive heart disease with heart failure (principal); I50.31 Acute diastolic (congestive) heart failure; J96.01 Acute respiratory failure with hypoxia; E87.1 Hypo-osmolality and hyponatremia; E87.6 Hypokalemia; I5A Non-ischemic myocardial injury (non-traumatic); I48.0 Paroxysmal atrial fibrillation; E83.42 Hypomagnesemia; Z79.01 Long term (current) use of anticoagulants
CPT/HCPCS: 71045; 71046; 80048; 80053; 83735; 83880; 84145; 84484; 85025; 85027; 86850; 86900; 86901; 87502; 87811; 93005; 93306; 94640; 96374; 97163; 97167; 99285

== ENCOUNTER → 2024-04-23 14:33 | Outpatient (REF) | payer MEDICARE, SELFPAY ==
[2024-04-23 16:16] LABS: Blood Urea Nitrogen 20 mg/dl (7-17); Calcium 9.6 mg/dl (8.4-10.2); Carbon Dioxide 30 mmol/L (22-30); Chloride 98 mmol/L (98-107); Glucose 106 mg/dl (70-99); Potassium 4.5 mmol/L (3.5-5.1); Sodium 135 mmol/L (135-145); eGFR > 60.00
== END ==
LOC: REG 14:33
PROVIDERS: ATTENDING PHYSICIAN Nurse Practitioner Gerontology
DX: I50.32 Chronic diastolic (congestive) heart failure (principal)
CPT/HCPCS: 36415; 80048

== ENCOUNTER 2024-05-07 08:28 | Outpatient (RCR) | payer SELFPAY | END 2024-05-07 23:59 | disposition home or self-care (01) | LOC: ROT 08:28 | PROVIDERS: ATTENDING PHYSICIAN Family Medicine | DX: Z02.4 Encounter for examination for driving license (principal) ==

== ENCOUNTER 2024-07-18 21:59 | Observation (INO) | payer MEDICARE, SELFPAY ==
[2024-07-18 17:42] VITALS: BP 171/10
--- NOTE | 2024-07-18 18:20 | EDRN ---
Dr. Ambrosio in room w/ pt at this time.
--- NOTE | 2024-07-18 18:20 | ED.GENMED ---
History of Present Illness
General
Chief Complaint: Breathing Problem
Source: patient and family ([id number])
Time Seen by Provider: 07/18/24 18:05
History of Present Illness
History of Present Illness:
83-year-old female brought to the emergency room by family for evaluation of cough, shortness of breath, weakness. Symptoms have been present for the past 1 to 2 days. Her cough is productive. She has not taken her temperature at home. She was
exposed to a family member who was positive for COVID 1 week. Positive nausea no vomiting.
Past History
Past History
ED Past Medical History: Arrthythmia (Atrial fib) and Other (Hernia's Anemia. Emphysema, Ulcers)
ED Past Surgical History: None
Social History
Tobacco: Former smoker
Alcohol: Occasional
Personal:
Living: with family
Phy Exam
Physical Exam
Physical Exam:
General: Awake, Alert, Oriented X3. No increased work of
Vitals: Oral temp 100.1, hypoxic on room air
Head: Atraumatic
Eyes: Pupils equal, EOMI
Throat: Airway intact, no exudates
Neck: Trachea midline
Lungs: History wheezing and rhonchi bilaterally
Heart: Regular rate, no murmurs
Abd: Soft, Nontender, No pulsatile mass
Neuro: Nonfocal
Skin: Warm, dry, no rash
Extremities: pulses equal b/l, no edema
Scores
Heart Failure Risk
Heart Failure Risk Score: Not Applicable
Sepsis
Sepsis Screening
Sepsis Assessment: Sepsis Ruled Out
Sepsis Screen
Sepsis Screen: Sepsis Ruled Out
Date: 07/18/24
Time: 21:41
Course
Orders/Labs/Results
Orders:
Orders
07/18/24 17:47
Electrocardiogram (*1) Urgent
Reason for Study: Shortness of Breath
07/18/24 17:48
EKG- Treatment ONCE
07/18/24 17:58
COVID-19 Antigen Urgent
Source: Nasal Swab
INF RAPID [Influenza A+B Rapid Molecular] Urgent
TRACY Source: Nasal Swab
Specimen Description:
07/18/24 18:17
Ipratropium/Albuterol Sulfate [Duoneb] 3 ml INH R NOW STA
07/18/24 18:20
CR Chest - 2 Views Urgent
Comment:
Reason For Exam: cough, sob
07/18/24 18:55
Complete Blood Count/With Diff Urgent
Comprehensive Metabolic Panel Urgent
NT-proBNP Urgent
Troponin I Urgent
Blood Culture Q30M
TRACY Source: Blood/Venous
Specimen Description:
07/18/24 19:00
Lactic Acid Urgent
Blood Culture Q30M
TRACY Source: Blood/Venous
Specimen Description:
07/18/24 21:01
Dexamethasone Sod Phosphate [Decadron] 10 mg IV NOW STA
Ipratropium/Albuterol Sulfate [Duoneb] 3 ml INH R NOW STA
07/18/24 21:02
Doxycycline [Vibramycin] 100 mg PO NOW STA
07/18/24 22:00
Flush (0.9% Sodium Chloride) [Flush (Nss)] See Dose Instructions IV PER PROTOCOL
Abnormal Lab Results
07/18/24
18:55
WBC 11.1 H 10^3/uL
(4.8-10.8)
RDW 21.4 H %
(11.5-14.5)
Absolute Neuts (auto) 9.4 H 10^3/uL
(1.4-6.5)
Absolute Lymphs (auto) 0.5 L 10^3/uL
(1.2-3.4)
Absolute Monos (auto) 1.0 H 10^3/uL
(0.1-0.6)
Neutrophils % 84.4 H %
(42.2-75.2)
Lymphocytes % 4.6 L %
(20.5-51.1)
Sodium 129 L mmol/L
(135-145)
Chloride 93 L mmol/L
(98-107)
Carbon Dioxide 33 H mmol/L
(22-30)
Glucose 109 H mg/dl
(70-99)
Total Protein 6.0 L g/dl
(6.3-8.2)
07/18/24 18:55
07/18/24 18:55
Vital Signs
Initial and Last Documented VS:
Initial Vital Signs
Temp Pulse Resp BP Pulse Ox
99.8 F 123 23 171/10 88
07/18/24 17:42 07/18/24 17:42 07/18/24 17:42 07/18/24 17:42 07/18/24 17:42
Last Documented Vital Signs
Temp Pulse Resp BP Pulse Ox
99.8 F 95 16 147/67 95
07/18/24 17:42 07/18/24 19:30 07/18/24 19:30 07/18/24 20:00 07/18/24 20:50
MDM/Problems Addressed
Differential Diagnosis Includes:
COVID,, pneumonia, CHF
MDM/Problems Addressed:
Patient presents with shortness of breath, cough. Recent exposure to COVID. Fortunately COVID and flu test are negative. She sounded quite junky on exam. She had some improvement with DuoNebs. Surprisingly enough her chest x-ray is negative for
an infiltrate. Despite improvement in aeration with DuoNebs she dropped her pulse ox when I attempted to wean her oxygen off. Therefore nasal cannula oxygen put back to 2 L. Further DuoNeb and IV steroids ordered. Contemplated ordering dose of
Zithromax but she does take flecainide so we will give p.o. doxycycline. Patient will require admission for hospitalization, further treatment and testing.
Chronic conditions affecting care: HTN and Arrhythmia (Atrial fibrillation)
*Radiology
Radiology exam reviewed: preliminary read by ED provider (No acute finding on my review of the patient's chest x-ray)
*Pulse Oximetry
Patient hypoxic: yes
*EKG
Interpreted by ED Provider?: Yes
Interpretation: abnormal
Heart Rate: 101
Rate: tachycardiac
Rhythm: atrial flutter
[place]: normal axis
Interval: normal interval
Ischemia: non-specific ST changes
*Dietitian Helper Interpretation
Rate: tachycardiac
Interpretation: abnormal
Rhythm: atrial flutter
*Critical Care Note
Total Time (30-74mins, 75-104mins- exclusive of procedures): Not Applicable
ED Attending Note
-
Portions of this chart may have been created with voice recognition software.� Occasional wrong word or��sound alike� substitutions may have occurred due to the inherent limitations of voice recognition software.
Discharge Plan
Departure
Patient Disposition: Admit
Date of Disposition: 07/18/24
Time of Disposition: 21:08
Admit to: Med/Surg
Presentation/result/management discussed w/ accepting MD/DO: Hospitalist
Condition: Fair
Discharge Problem:
Acute bronchitis, Hypoxia, Acute bronchospasm
Prescriptions:
No Action
famotidine 40 mg Tablet
40 mg PO DAILY
Tums 300 mg (750 mg) Tablet,Chewable
300 mg PO DAILY
omeprazole 40 mg Capsule,Delayed Release(Dr/Ec)
40 mg PO DAILY
acetaminophen [Tylenol Extra Strength] 500 mg Tablet
500 mg PO Q6HPRN PRN (Reason: mild pain)
Kaopectate (bismuth subsalicy) 262 mg Tablet
524 mg PO DAILY
WesTab Max 2.5-25-2 mg Tablet
1 tab PO DAILY 30 Days Qty: 30 0RF
Eliquis 2.5 mg Tablet
2.5 mg PO BID
ethacrynic acid 25 mg Tablet
50 mg PO DAILY Qty: 30 0RF
spironolactone 25 mg Tablet
25 mg PO DAILY 30 Days Qty: 30 0RF
melatonin 5 mg Tablet
5 mg PO HS PRN (Reason: insomnia)
Referrals:
Kt Lee MD [Family Provider] -
Interventions
Interventions:
*Risk Screen - Suicide Last Done: 07/18/24 17:42
*General Assessment Last Done: 07/18/24 17:42
ED- Cardiac Assessment Last Done: 07/18/24 19:26
ED- Pulmonary Assessment Last Done: 07/18/24 19:26
Discharge Date and Time
Print Language: AUSTRIAN
[2024-07-18 18:31] LABS: COVID-19 Antigen Negative (Negative)
[2024-07-18] MEDS: DUONEB 3 ML INH ×2 (18:49→21:26)
[2024-07-18 19:00] VITALS: BP 122/69
[2024-07-18 19:07] LABS: % Basophils 0.4 % (0-2); % Eosinophils 1.4 % (0-6); % Immature Granulocytes 0.2 % (0-0.5); % Lymphocytes 4.6 % (20.5-51.1); % Neutrophils 84.4 % (42.2-75.2); Absolute Eosinophils 0.2 10^3/uL (0-0.7); Absolute Lymphocytes 0.5 10^3/uL (1.2-3.4); Absolute Neutrophils 9.4 10^3/uL (1.4-6.5); Hematocrit 39.2 % (37.0-47.0); Hemoglobin 13.1 g/dL (12.0-16.0); Mean Corp Hgb Conc. 33.4 g/dL (33.0-37.0); Mean Corpuscular Hgb 28.8 pg (27.0-31.0); Mean Corpuscular Volume 86.2 fL (81.0-99.0); Mean Platelet Volume 7.8 fL (7.4-10.4); Nucleated Red Blood Cells % 0 %; Platelet Count 248 10^3/uL (130-400); Red Blood Cell Count 4.55 10^6/uL (4.20-5.40); Red Cell Dist. Width 21.4 % (11.5-14.5); White Blood Cell Count 11.1 10^3/uL (4.8-10.8)
[2024-07-18 19:20] LABS: Lactic Acid 0.7 mmol/L (0.7-2.0)
[2024-07-18 19:23] LABS: ALT (SGPT) 22 U/L (0-35); AST (SGOT) 20 U/L (14-36); Albumin 3.5 g/dl (3.5-5.0); Alkaline Phosphatase 62 U/L (38-126); Blood Urea Nitrogen 14 mg/dl (7-17); Calcium 8.5 mg/dl (8.4-10.2); Carbon Dioxide 33 mmol/L (22-30); Chloride 93 mmol/L (98-107); Glucose 109 mg/dl (70-99); Sodium 129 mmol/L (135-145); Total Bilirubin 0.5 mg/dl (0.2-1.3); eGFR > 60.00
[2024-07-18 19:32] VITALS: BMI 21.5
[2024-07-18 19:33] LABS: NT-proBNP 1310 pg/ml; Troponin I < 0.012 ng/ml
[2024-07-18 20:00] VITALS: BP 147/67
[2024-07-18 21:00] VITALS: BP 116/58
[2024-07-18] MEDS: DECADRON 10 MG IV (21:25)
[2024-07-18] MEDS: VIBRAMYCIN 100 MG PO (21:26)
[2024-07-18] MEDS: FLUSH (NSS) 1 FLUSH IV (21:26)
--- NOTE | 2024-07-18 21:29 | HPS.HSE ---
Family Physician
-
Family Physician: Kt Lee
Chief Complaint
-
Cough and shortness of breath
History of Present Illness
This is a 83-year-old female with past medical history significant for atrial fibrillation on anticoagulation with Eliquis, CHF with preserved EF, hypertension, iron deficiency anemia who presents to the emergency department with acute episode of
cough and shortness of breath.
Patient has a relative with COVID and she has been exposed for about 1 week. She reports sinus congestion postnasal drip sore throat and then a cough that is productive of copious amount of sputum. She is having some cough paroxysms as well. She
reports feeling short of breath and having generalized weakness. Although she denies fevers but daughter reported temp of around 100 at home. She denies muscle aches and joint pains. She denies any chills or rigors. She denies any nausea or
vomiting. Patient has denied any chest pain except for associated rib pain with coughing. She denies any lower extremity edema. She has not been having palpitations lately and she denies any lightheadedness or dizziness. No other known sick
contacts.
In the emergency department the patient had a Tmax of 99.8, blood pressure was 147/67 with a pulse of 95 and she was satting 95% on 2 L. Chest x-ray showed no acute infiltrates. Cardiomegaly noted as previous. ECG atrial flutter with 3-1 and 4-1
conduction. Rate 103.
White count was 11.1, hemoglobin 13.1 platelet 248. Sodium was 129 electrolytes otherwise unremarkable. BUN/creatinine were stable.
Troponin was negative, BNP 1300 which is markedly decreased from prior. COVID test was negative, flu test was negative.
Medical History
Past Medical History
Past Medical History: Reports CHF (Preserved EF) and Other (paroxysmal atrial fibrillation recently on Eliquis, hypertension, bowel obstruction status post bowel resection 20 years ago, GERD, anemia)
Past Surgical History: Reports Other
Social History
Tobacco: Non-smoker
Alcohol: Daily
Drug: None
Family History
Family History: Not pertinent
Allergies / Home Medications
Allergies reflects when Allergies were last updated in [employer].
Home Medications with original date entered in [employer]
Allergy/Medication List:
Allergies
Allergy/AdvReac Type Severity Reaction Status Date / Time
furosemide [From Lasix] Allergy Rash Verified 07/18/24 17:40
Iodinated Contrast Media Allergy Unknown Verified 07/18/24 17:40
Penicillins Allergy Swelling Verified 07/18/24 17:40
shellfish derived Allergy Unknown Verified 07/18/24 17:40
Sulfa (Sulfonamide Allergy Swelling Verified 07/18/24 17:40
Antibiotics)
Home Medications
acetaminophen 500 mg tablet (Tylenol Extra Strength) 500 mg PO Q6HPRN PRN mild pain 10/09/23
bismuth subsalicylate 262 mg tablet (Kaopectate (bismuth subsalicylate)) 524 mg PO DAILY Gastrointestinal Issue 10/09/23
calcium carbonate (Tums) 300 mg PO DAILY Gastrointestinal Issue 10/09/23
famotidine 40 mg tablet 40 mg PO DAILY Gastrointestinal Issue 10/09/23
omeprazole 40 mg capsule,delayed release 40 mg PO DAILY Gastrointestinal Issue 10/09/23
folic acid-vit B6-vit B12 2.5 mg-25 mg-2 mg tablet (WesTab Max) 1 tab PO DAILY 30 days #30 tabs 10/10/23
apixaban 2.5 mg tablet (Eliquis) 2.5 mg PO BID 03/22/24
ethacrynic acid 25 mg tablet 50 mg (2 x 25 mg) PO DAILY #30 tabs 03/27/24
spironolactone 25 mg tablet 25 mg PO DAILY 30 days #30 tabs 03/27/24
melatonin 5 mg tablet 5 mg PO HS PRN insomnia 07/18/24
Review of Systems
-
History Source: Patient
Constitutional: Reports No Symptoms
EENT: Reports No Symptoms
Respiratory: Reports Cough and Trouble Breathing
Cardiac: Reports No Symptoms
Abdomen/GI: Reports No Symptoms
: Reports No Symptoms
Musculoskeletal: Reports No Symptoms
Skin: Reports No Symptoms
Neurological: Reports No Symptoms
Endocrine: Reports No Symptoms
Hematologic/Lymphatic: Reports No Symptoms
Psych: Reports No Symptoms
Physical Exam
Vital Signs
Vital Signs
Temp Pulse Resp BP Pulse Ox
99.8 F 95 16 147/67 95
07/18/24 17:42 07/18/24 19:30 07/18/24 19:30 07/18/24 20:00 07/18/24 20:50
Physical Exam
General: Well Developed, Well Nourished and Conversant
HEENT: NormoCephalic, Anicteric, Moist mucous membranes, Atraumatic and Oxygen
Respiratory: Wheezes and Non Labored Respirations; No Crackles
Cardiac: S1/S2 and Regular Rhythm
Breast: Deferred by me
GI: Soft, Non Tender, Non Distended and Normal Bowel Sounds
Rectal: Deferred by Provider
Genito-urinary: Deferred by me
Musculoskeletal: No Clubbing, No Cyanosis and No Edema
Skin: Warm
Neuro: AO x 3 and Nonfocal/grossly intact
Hematologic/Lymphatic: No Lymphadenopathy
Psych: Calm
Laboratory Results
-
07/18/24 18:55
07/18/24 18:55
Laboratory Results
Lactic Acid 0.7 mmol/L (0.7-2.0) 07/18/24 19:00
Total Bilirubin 0.5 mg/dl (0.2-1.3) 07/18/24 18:55
AST 20 U/L (14-36) 07/18/24 18:55
ALT 22 U/L (0-35) 07/18/24 18:55
Alkaline Phosphatase 62 U/L (38-126) 07/18/24 18:55
Troponin I < 0.012 ng/ml 07/18/24 18:55
Data Reviewed
-
Diagnostic Radiology: Image Personally Visualized and interpreted and Report Reviewed by me
Lab Data: Labs Reviewed by me
Old Records: Reviewed
Impression/Plan
-
IMPRESSION:
83 y.o with acute onset of SOB after about 1 -2 days of sinus congestion, then sore throat/ PND. Cough productive with wheezing. Mild hypoxia requiring 2 L. No pulmonary edema. No consolidations. Viral panel negative. Patient afebrile with
minimal leukocytosis. C/w acute bronchitis. No CHF component.
PLAN:
1. Acute bronchitis - No known h/o COPD or asthma.
- admit to tele observation (to monitor afib)
- agree with doxycycline for now
- check procal in am
- sputum culture
- duonebs RTC and prn
- ok for a short course of oral steroids 40mg prednisone given marked wheezing and sob
2. AFIB - Currently Aflutter with variable conduction but rate controlled
- tele
- continue diltiazem
- continue eliquis 2.5 bid
3. CHF - CHF w/ preserved EF, BNP down to 1300 from > [id number], euvolemic here.
- continue ethacrynic acid
- holding spironolactone (hyponatremia)
4. Hyponatremia - suspect more hypovolemic hyponatremia given recent initiation of diuretics + spironolactone. She has no evidence of volume o/d currently
- holding spironolactone for now
- continue with free water restriction but liberalize salt intake
DVT PPX - on eliquis
Code status - DNR
[2024-07-18 22:46] VITALS: BP 143/89
[2024-07-18 22:47] VITALS: BMI 20.8
[2024-07-18 22:57] VITALS: BMI 20.8
[2024-07-18] MEDS: MELATONIN 5 MG PO (23:18)
--- NOTE | 2024-07-19 00:19 | PTCARENOTE ---
Patient arrived from ED, via stretcher. OOB x 1 assist from stretcher to bed. AAO x 3, hard of hearing--patient did not bring hearing aids with her, to the hospital. VSS, on 2 L NC. Lungs with inspiratory and expiratory wheezes and rhonchi
throughout. Aflutter on threat monitoring analyst. Patient denies pain. Skin is clean, dry and intact. Patient oriented to the room. Bed in lowest position. Call ford and personal belongings within reach.
[2024-07-19 03:36] VITALS: BP 122/57
[2024-07-19 07:00] VITALS: BP 127/60
[2024-07-19 07:10] LABS: Hematocrit 38.4 % (37.0-47.0); Hemoglobin 12.7 g/dL (12.0-16.0); Mean Corp Hgb Conc. 33.1 g/dL (33.0-37.0); Mean Corpuscular Hgb 28.7 pg (27.0-31.0); Mean Corpuscular Volume 86.7 fL (81.0-99.0); Platelet Count 243 10^3/uL (130-400); Red Blood Cell Count 4.43 10^6/uL (4.20-5.40); Red Cell Dist. Width 21.2 % (11.5-14.5); White Blood Cell Count 6.2 10^3/uL (4.8-10.8)
[2024-07-19] MEDS: DUONEB 3 ML INH ×2 (07:36→11:16)
[2024-07-19 08:11] LABS: Blood Urea Nitrogen 14 mg/dl (7-17); Calcium 8.6 mg/dl (8.4-10.2); Carbon Dioxide 32 mmol/L (22-30); Chloride 94 mmol/L (98-107); Estimated Creatinine Clearance 49 ml/min; Glucose 161 mg/dl (70-99); Potassium 4.4 mmol/L (3.5-5.1); Sodium 130 mmol/L (135-145); eGFR > 60.00
[2024-07-19] MEDS: VIBRAMYCIN 100 MG PO (08:26)
[2024-07-19] MEDS: TUMS EX (EXTRA STRENGTH) CHEWABLE TABLET 300 MG PO (08:26)
[2024-07-19] MEDS: PEPCID 40 MG PO (08:26)
[2024-07-19] MEDS: EDECRIN 50 MG PO (08:26)
[2024-07-19] MEDS: DELTASONE 40 MG PO (08:26)
[2024-07-19] MEDS: ELIQUIS 2.5 MG PO (08:26)
[2024-07-19 10:25] LABS: NT-proBNP 1460 pg/ml
[2024-07-19 11:00] VITALS: BP 126/56
--- NOTE | 2024-07-19 11:03 | CM ---
Addendum entered by Liz Albarado 07/19/24 12:47:
Patient does not require home oxygen at discharge.
Original Note:
NAIDU letter reviewed and singed by patient. plant general manager reviewed patient's chart and met with patient and patient lives alone in a 2 story home, patient is independent with adl's and ambulation, no dme, patient drives, patient is currently on 2
liters of oxygen and did not require oxygen prior to admission, will need home oxygen testing.
PCP: Dr. Kt Lee
Pharmacy: [facility].
Plan; Home when stable, home oxygen evaluation required.
--- NOTE | 2024-07-19 12:30 | W.PN.HOSP.TC ---
Today's Communication/Plan
-
dc
Assessment / Plan
Assessment / Plan
83yo F with PMHX of HFpEF, Afib on Eliquis, GERD, presbycusis came with 2 days of worsening respiratory symptoms and cough. COugh became so bad that she came to ED and was left on observation overnight due to that she lives alone. Not hypoxic, XR
without pneumonia, proBNP on similar level as before, no LE swelling. Unclear benefit for steroids - reasonable to stop. Will benefit from 6 more days of doxy - sunlight precautions discussed with patient and her daughter in law, who also an RN and
will be staying with the patient for the next couple of days.
A/P:
#Bronchitis
COVID-19 and influenza neg
not hypoxic
tessalon perls and Doxy
cough improved
#Mild hyponatremia
most likely 2/2 Ethacrynic acid
follow BMP with PCP
#Chronic HFpEF
#Essential HTN
#GERD
cont home meds
DVT ppx on eliquis
DNR/DNI
I have spent at least 38min reviewing chart, test results, communication with patient, family and providing direct patient care
Anticipated Discharge: Today
Subjective/Interval History
-
Date of Service: July 19, 2024
Objective Data
-
Labs:
Laboratory Results
07/19/24
06:52
WBC 6.2
Hgb 12.7
Hct 38.4
Plt Count 243
Sodium 130 L
Potassium 4.4
Chloride 94 L
Carbon Dioxide 32 H
BUN 14
Creatinine 0.7
Glucose 161 H
Calcium 8.6
Vital Signs:
Vital Signs
Temp Pulse Resp BP Pulse Ox
97.7 F 62 16 126/56 92
07/19/24 11:00 07/19/24 11:16 07/19/24 11:16 07/19/24 11:00 07/19/24 11:00
I&O
07/18/24 07/19/24 07/20/24
06:59 06:59 06:59
Intake Total 240 / 240
Balance 240 / 240
Review of Systems
-
History Source: Patient
All other systems: Reviewed and negative
Respiratory: Reports Cough
Physical Exam
-
General: No Apparent Distress
HEENT: Normocephalic and Other (nasal congestion)
Respiratory: Clear to Auscultation
Cardiac: Regular Rhythm
GI: Soft, Nontender and Nondistended
Musculoskeletal: No Clubbing, No Cyanosis and No Edema
Neuro: Awake, Alert, Oriented and AO x 3
Psych: Calm
--- NOTE | 2024-07-19 12:32 | W.DCSUMMARY ---
Discharge Summary
Discharge Data
Date of Admission: 07/18/24
Date of Discharge: 07/19/24
-
Pending Results: No
Hospital Course
83yo F with PMHX of HFpEF, Afib on eliquis, GERD, presbycusis came with 2 days of worsening respiratory symptoms and cough. COugh became so bad that she came to ED and was left on observation overnight due to that she lives alone. Not hypoxic, XR
without pneumonia, proBNP on similar level as before, no LE swelling. Unclear benefit for steroids - reasonable to stop. Will benefit from 6 more days of doxy - sunlight precautions discussed with patient and her daughter in law, who also an RN and
will be staying with the patient for the next couple of days.
I have spent at least 38min reviewing chart, test results, communication with patient, family and providing direct patient care
Patient was managed for:
#Bronchitis
#Mild hyponatremia
#Chronic HFpEF
#Essential HTN
#GERD
#Afib, unspecified
Discharge Plan
-
Patient Disposition: Home (Routine Discharge)
Discharge Diagnosis/Procedures: bronchitis
Diet: No added salt
Blood Work: BMP with family doctor in 1 week
Referrals:
Kt Lee MD [Family Provider] - in less than 1 week (repeat BMP blood test for sodium level)
Prescriptions:
New
benzonatate 100 mg Capsule
200 mg PO TIDPRN PRN (Reason: cough) Qty: 9 0RF
doxycycline hyclate 100 mg Capsule
100 mg PO Q12 Qty: 12 0RF
Continued
famotidine 40 mg Tablet
40 mg PO DAILY
Tums 300 mg (750 mg) Tablet,Chewable
300 mg PO DAILY
omeprazole 40 mg Capsule,Delayed Release(Dr/Ec)
40 mg PO DAILY
acetaminophen [Tylenol Extra Strength] 500 mg Tablet
500 mg PO Q6HPRN PRN (Reason: mild pain)
Kaopectate (bismuth subsalicy) 262 mg Tablet
524 mg PO DAILY
WesTab Max 2.5-25-2 mg Tablet
1 tab PO DAILY 30 Days Qty: 30 0RF
Eliquis 2.5 mg Tablet
2.5 mg PO BID
ethacrynic acid 25 mg Tablet
50 mg PO DAILY Qty: 30 0RF
spironolactone 25 mg Tablet
25 mg PO DAILY 30 Days Qty: 30 0RF
melatonin 5 mg Tablet
5 mg PO HS PRN (Reason: insomnia)
Discharge Orders:
Discharge Patient (As Directed); Ordered 07/19/24
Ordered By: Jordin Galan
Discharge Date and Time
Print Language: TURKISH
== END 2024-07-19 13:46 | disposition home or self-care (01) ==
LOC: 4 WEST ACU 21:59
PROVIDERS: Emergency Medicine; ADMITTING PHYSICIAN Internal Medicine; ATTENDING PHYSICIAN Internal Medicine; EMERGENCY PHYSICIAN Emergency Medicine; FAMILY PHYSICIAN Family Medicine
DX: J20.8 Acute bronchitis due to other specified organisms (principal); R06.02 Shortness of breath; R05.9 Cough, unspecified; R53.1 Weakness; J43.9 Emphysema, unspecified; R09.02 Hypoxemia; I48.0 Paroxysmal atrial fibrillation; I48.92 Unspecified atrial flutter; R00.0 Tachycardia, unspecified; D50.9 Iron deficiency anemia, unspecified; E87.1 Hypo-osmolality and hyponatremia; M41.84 Other forms of scoliosis, thoracic region; I11.0 Hypertensive heart disease with heart failure; I50.32 Chronic diastolic (congestive) heart failure; K21.9 Gastro-esophageal reflux disease without esophagitis; Z60.2 Problems related to living alone; Z66 Do not resuscitate; Z11.52 Encounter for screening for COVID-19; Z90.49 Acquired absence of other specified parts of digestive tract; Z88.8 Allergy status to other drugs, medicaments and biological substances; Z88.0 Allergy status to penicillin; Z88.2 Allergy status to sulfonamides; Z79.01 Long term (current) use of anticoagulants; Z87.891 Personal history of nicotine dependence; Z91.041 Radiographic dye allergy status
CPT/HCPCS: 71046; 80048; 80053; 83605; 83880; 84484; 85025; 85027; 87040; 87502; 87811; 93005; 94640; 96374; 99285; G0378

== ENCOUNTER 2024-07-21 21:01 | Inpatient (IN) | payer MEDICARE, SELFPAY ==
--- NOTE | 2024-07-21 17:50 | ED.GENMED ---
History of Present Illness
General
Chief Complaint: Breathing Problem
Time Seen by Provider: 07/21/24 17:45
History of Present Illness
History of Present Illness:
Patient is a 84-year-old female with history of CHF, A-fib on Eliquis presenting to the emergency department shortness of breath.� Per chart review patient was admitted a few days ago for bronchitis and discharged on doxycycline.� Patient states
that she felt better and then yesterday developed worsening shortness of breath.� It is worse when she lays flat.� Her cough has also been persistent.� No chest pain.� Mild leg swelling.� She has been compliant with her Eliquis.� Subjective fever at
home.
Past History
Past History
ED Past Medical History: Arrthythmia (Atrial fib) and Other (Hernia's Anemia. Emphysema, Ulcers)
ED Past Surgical History: None
Social History
Tobacco: Former smoker
Alcohol: Occasional
Personal:
Living: with family
Phy Exam
Physical Exam
Physical Exam:
GENERAL: in no acute distress
HEENT: normocephalic, extraocular movements intact, moist oral mucosa
NECK: normal inspection
RESPIRATORY: no respiratory distress, coarse sounds at bases
CARDIOVASCULAR: regular rate and rhythm
ABDOMEN/: soft, non-distended, non-tender to palpation, no rebound or guarding
EXTREMITIES: non-tender, mild edema bilaterally
NEUROLOGIC: awake and alert, moves all extremities
SKIN: warm
Scores
Heart Failure Risk
Heart Failure Risk Score: Not Applicable
Course
Orders/Labs/Results
Orders:
Orders
07/21/24
Electrocardiogram (*1) Stat
Reason for Study: Chest Pain
Comment: DONE
Electrocardiogram (*1) Stat
Reason for Study: Chest Pain
Comment: DONE
07/21/24 15:30
COVID-19 Antigen Urgent
Complete Blood Count/With Diff Urgent
Comprehensive Metabolic Panel Urgent
NT-proBNP Urgent
Troponin I Urgent
Influenza A+B Rapid Molecular Urgent
TRACY Source: NSWAB
Specimen Description:
07/21/24 18:29
CR Chest - 2 Views Urgent
Comment:
Reason For Exam: hypoxia
Abnormal Lab Results
07/21/24
15:30
WBC 12.2 H 10^3/uL
(4.8-10.8)
MCHC 32.8 L g/dL
(33.0-37.0)
RDW 20.1 H %
(11.5-14.5)
Abs Immat Gran (auto) 0.1 H 10^3/uL
(0-0.05)
Absolute Neuts (auto) 10.2 H 10^3/uL
(1.4-6.5)
Absolute Lymphs (auto) 0.7 L 10^3/uL
(1.2-3.4)
Absolute Monos (auto) 1.1 H 10^3/uL
(0.1-0.6)
Immature Gran % 0.7 H %
(0-0.5)
Neutrophils % 83.8 H %
(42.2-75.2)
Lymphocytes % 5.8 L %
(20.5-51.1)
Sodium 123 L mmol/L
(135-145)
Chloride 86 L mmol/L
(98-107)
Carbon Dioxide 33 H mmol/L
(22-30)
BUN 21 H mg/dl
(7-17)
Total Protein 6.2 L g/dl
(6.3-8.2)
07/21/24 15:30
07/21/24 15:30
Vital Signs
Initial and Last Documented VS:
Initial Vital Signs
Pulse Ox
94
07/21/24 18:32
Last Documented Vital Signs
Pulse Ox
94
07/21/24 18:32
MDM/Problems Addressed
Differential Diagnosis Includes:
Patient is a 84-year-old history of COPD CHF A-fib on Eliquis presenting to the room with shortness of breath.� On arrival patient was hypoxic requiring nasal cannula.� Exam does show coarse breath sounds with mild edema bilaterally.� Concern for
CHF exacerbation versus COPD exacerbation versus pneumonia.� Less likely PE given exam findings and patient is compliant with Eliquis. Will check blood work EKG chest x-ray respiratory swabs.� Given patient's hypoxia she will need admission.
*Critical Care Note
Total Time (30-74mins, 75-104mins- exclusive of procedures): Not Applicable
Update Note
Update Note:
Blood work does show hyponatremia and slight leukocytosis. BNP is elevated at 900 though less than prior. Could be atypical PNA like legionella. Chest x-ray per my interpretation with mild pulmonary edema with possible left lower lobe infiltrate.
Official read pending. Discussed with hospitalist who accepted patient to their service.
ED Attending Note
-
Portions of this chart may have been created with voice recognition software.� Occasional wrong word or��sound alike� substitutions may have occurred due to the inherent limitations of voice recognition software.
Discharge Plan
Departure
Patient Disposition: Admit
Date of Disposition: 07/21/24
Time of Disposition: 19:20
Presentation/result/management discussed w/ accepting MD/DO: Hospitalist
Discharge Problem:
Hyponatremia, Shortness of breath
Prescriptions:
No Action
famotidine 40 mg Tablet
40 mg PO DAILY
Tums 300 mg (750 mg) Tablet,Chewable
300 mg PO DAILY
omeprazole 40 mg Capsule,Delayed Release(Dr/Ec)
40 mg PO DAILY
acetaminophen [Tylenol Extra Strength] 500 mg Tablet
500 mg PO Q6HPRN PRN (Reason: mild pain)
Kaopectate (bismuth subsalicy) 262 mg Tablet
524 mg PO DAILY
WesTab Max 2.5-25-2 mg Tablet
1 tab PO DAILY 30 Days Qty: 30 0RF
Eliquis 2.5 mg Tablet
2.5 mg PO BID
ethacrynic acid 25 mg Tablet
50 mg PO DAILY Qty: 30 0RF
spironolactone 25 mg Tablet
25 mg PO DAILY 30 Days Qty: 30 0RF
melatonin 5 mg Tablet
5 mg PO HS PRN (Reason: insomnia)
benzonatate 100 mg Capsule
200 mg PO TIDPRN PRN (Reason: cough) Qty: 9 0RF
doxycycline hyclate 100 mg Capsule
100 mg PO Q12 Qty: 12 0RF
Referrals:
Kt Lee MD [Family Provider, Family Practice]
Interventions
Interventions:
ED- Cardiac Assessment Last Done: 07/21/24 18:32
ED- Pulmonary Assessment Last Done: 07/21/24 18:32
Discharge Date and Time
Print Language: SERBIAN
[2024-07-21 18:03] LABS: % Basophils 0.2 % (0-2); % Eosinophils 0.2 % (0-6); % Immature Granulocytes 0.7 % (0-0.5); % Lymphocytes 5.8 % (20.5-51.1); % Monocytes 9.3 % (1.7-9.3); % Neutrophils 83.8 % (42.2-75.2); Absolute Immature Granulocytes 0.1 10^3/uL (0-0.05); Absolute Lymphocytes 0.7 10^3/uL (1.2-3.4); Absolute Monocytes 1.1 10^3/uL (0.1-0.6); Absolute Neutrophils 10.2 10^3/uL (1.4-6.5); Hematocrit 39.6 % (37.0-47.0); Mean Corp Hgb Conc. 32.8 g/dL (33.0-37.0); Mean Corpuscular Hgb 28.3 pg (27.0-31.0); Mean Corpuscular Volume 86.1 fL (81.0-99.0); Mean Platelet Volume 8.4 fL (7.4-10.4); Nucleated Red Blood Cells % 0 %; Platelet Count 288 10^3/uL (130-400); Red Cell Dist. Width 20.1 % (11.5-14.5); White Blood Cell Count 12.2 10^3/uL (4.8-10.8)
[2024-07-21 18:09] LABS: ALT (SGPT) 26 U/L (0-35); AST (SGOT) 25 U/L (14-36); Albumin 3.6 g/dl (3.5-5.0); Alkaline Phosphatase 66 U/L (38-126); Blood Urea Nitrogen 21 mg/dl (7-17); Calcium 8.4 mg/dl (8.4-10.2); Carbon Dioxide 33 mmol/L (22-30); Chloride 86 mmol/L (98-107); Glucose 98 mg/dl (70-99); Potassium 3.8 mmol/L (3.5-5.1); Sodium 123 mmol/L (135-145); Total Bilirubin 0.4 mg/dl (0.2-1.3); Total Protein 6.2 g/dl (6.3-8.2); eGFR > 60.00
[2024-07-21 18:13] LABS: COVID-19 Antigen Negative (Negative)
[2024-07-21 18:21] LABS: NT-proBNP 900 pg/ml; Troponin I < 0.012 ng/ml
--- NOTE | 2024-07-21 18:32 | DOWNTIME ---
There was a [employer] Client [employer] Downtime on 07/21/2024 from 1230 to 07/21/2024 at 1550. Downtime documentation of patient's care, including medication administrations, has been reconciled in the electronic record per guidelines. Refer to the
patient's paper chart under the miscellaneous tab to see printed paper medication records and downtime forms.
[2024-07-21 18:48] VITALS: BMI 20.6
--- NOTE | 2024-07-21 18:58 | DOWNTIME ---
There was a [employer] Client [employer] Downtime on 07/21/2024 from 1230 to 07/21/2024 at 1550. Downtime documentation of patient's care, including medication administrations, has been reconciled in the electronic record per guidelines. Refer to the
patient's paper chart under the miscellaneous tab to see printed paper medication records and downtime forms.
--- NOTE | 2024-07-21 19:48 | HPS.HSE ---
Family Physician
-
Family Physician: Kt Lee
Chief Complaint
-
Shortness of breath
History of Present Illness
This is a 83-year-old female with past medical history significant for atrial fibrillation on anticoagulation with Eliquis, CHF with preserved EF, hypertension, iron deficiency anemia who presents to the emergency department with shortness of breath.
Patient was seen here about 3 days ago with history of cough congestion and shortness of breath. At that time was in generalized weakness low-grade temps generalized aches. She denied fevers chills or rigors. She had no nausea or vomiting at the
time and denies any abdominal pain. She has some rib pain associated with coughing. She was admitted and started on doxycycline. She felt better the following day and was discharged on oral doxycycline for acute bronchitis. COVID and flu test
were negative.
Since returning home the patient has continued to have cough and shortness of breath. Now she has dyspnea on exertion. She still has no fevers with a Tmax of around 99.5 at home. Patient reports more dyspnea, chest pain with inspiration as well
as abdominal bloating and pain. She has not been able to tolerate p.o. She has some nausea but no vomiting. She has very poor appetite but has been able to continue to take her medications.
She did develop a rash on her trunk and upper back today. The only medications added with the Tessalon Perles and doxycycline.
In the emergency department she was afebrile, hypertensive to 140s, hypoxic requiring 4 L of oxygen satting 94%. Chest x-ray without any infiltrates edema or effusion. ECG Aflutter variable 3:1 and 2:1 conduction.
CBC notable for white count of 12.2 but otherwise unremarkable. Electrolytes notable for sodium of 193 which is down from 130. Potassium was 3.8 chloride 86 and bicarb 33. BUN/creatinine were fully normal. BNP was 900 which is down from prior.
Troponin was negative.
Medical History
Past Medical History
Past Medical History: Reports CHF (Preserved EF) and Other (paroxysmal atrial fibrillation recently on Eliquis, hypertension, bowel obstruction status post bowel resection 20 years ago, GERD, anemia)
Past Surgical History: Reports Other
Social History
Tobacco: Non-smoker
Alcohol: Daily
Drug: None
Family History
Family History: Not pertinent
Allergies / Home Medications
Allergies reflects when Allergies were last updated in [facility].
Home Medications with original date entered in [facility]
Allergy/Medication List:
Allergies
Allergy/AdvReac Type Severity Reaction Status Date / Time
furosemide (From Lasix) Allergy Rash Verified 07/18/24 17:40
Iodinated Contrast Media Allergy Unknown Verified 07/18/24 17:40
Penicillins Allergy Swelling Verified 07/18/24 17:40
shellfish derived Allergy Unknown Verified 07/18/24 17:40
Sulfa (Sulfonamide Allergy Swelling Verified 07/18/24 17:40
Antibiotics)
Home Medications
acetaminophen 500 mg tablet (Tylenol Extra Strength) 500 mg PO Q6HPRN PRN mild pain 10/09/23
bismuth subsalicylate 262 mg tablet (Kaopectate (bismuth subsalicylate)) 524 mg PO DAILY Gastrointestinal Issue 10/09/23
calcium carbonate (Tums) 300 mg PO DAILY Gastrointestinal Issue 10/09/23
famotidine 40 mg tablet 40 mg PO DAILY Gastrointestinal Issue 10/09/23
omeprazole 40 mg capsule,delayed release 40 mg PO DAILY Gastrointestinal Issue 10/09/23
folic acid-vit B6-vit B12 2.5 mg-25 mg-2 mg tablet (WesTab Max) 1 tab PO DAILY 30 days #30 tabs 10/10/23
apixaban 2.5 mg tablet (Eliquis) 2.5 mg PO BID 03/22/24
ethacrynic acid 25 mg tablet 50 mg (2 x 25 mg) PO DAILY #30 tabs 03/27/24
spironolactone 25 mg tablet 25 mg PO DAILY 30 days #30 tabs 03/27/24
melatonin 5 mg tablet 5 mg PO HS PRN insomnia 07/18/24
benzonatate 100 mg capsule 200 mg (2 x 100 mg) PO TIDPRN PRN cough #9 caps 07/19/24
doxycycline hyclate 100 mg capsule 100 mg PO Q12 #12 caps 07/19/24
Review of Systems
-
History Source: Patient
Constitutional: Reports No Symptoms
EENT: Reports No Symptoms
Respiratory: Reports Cough and Trouble Breathing
Cardiac: Reports No Symptoms
Abdomen/GI: Reports No Symptoms
: Reports No Symptoms
Musculoskeletal: Reports No Symptoms
Skin: Reports No Symptoms
Neurological: Reports No Symptoms
Endocrine: Reports No Symptoms
Hematologic/Lymphatic: Reports No Symptoms
Psych: Reports No Symptoms
Physical Exam
Vital Signs
Vital Signs
Pulse Ox
94
07/21/24 18:32
Physical Exam
General: Well Developed, Well Nourished and Conversant
HEENT: NormoCephalic, Anicteric, Moist mucous membranes, Atraumatic and Oxygen
Respiratory: Wheezes, Rhonchi and Non Labored Respirations; No Crackles
Cardiac: S1/S2 and Regular Rhythm
Breast: Deferred by me
GI: Soft, Non Tender, Non Distended and Normal Bowel Sounds
Rectal: Deferred by Provider
Genito-urinary: Deferred by me
Musculoskeletal: No Clubbing, No Cyanosis and No Edema
Skin: Warm
Neuro: AO x 3 and Nonfocal/grossly intact
Hematologic/Lymphatic: No Lymphadenopathy
Psych: Calm
Laboratory Results
-
07/21/24 15:30
07/21/24 15:30
Laboratory Results
Total Bilirubin 0.4 mg/dl (0.2-1.3) 07/21/24 15:30
AST 25 U/L (14-36) 07/21/24 15:30
ALT 26 U/L (0-35) 07/21/24 15:30
Alkaline Phosphatase 66 U/L (38-126) 07/21/24 15:30
Troponin I < 0.012 ng/ml 07/21/24 15:30
Data Reviewed
-
Diagnostic Radiology: Image Personally Visualized and interpreted and Report Reviewed by me
Medical Tests (Nuc Med, Echo, EKG etc): Image Personally Visualized and interpreted
Lab Data: Labs Reviewed by me
Old Records: Reviewed
Impression/Plan
-
IMPRESSION:
83 y.o with acute onset of SOB, diagnosed with bronchitis a few days and sent home on doxycycline returns with more wet sounding cough, unable to bring up sputum and is more SOB and hypoxic now requiring 4 L O2, whereas she had previously requireed
2 L. She sounds congested but Xray is negative for consolidation, infiltrate, edema or effusion. Labs notable for Hyponatremia but otherise unremarkable. BNP remains suppressed and patient has not had any signficant PO intake. Suspect worsening
atypica pneumonia versus acute bronchitis. Viral panel negative. Patient afebrile with minimal leukocytosis. C/w acute bronchitis. No CHF component.
PLAN:
1. Acute bronchitis - No known h/o COPD or asthma. However hypoxia with significant reactive airways.
- admit to telemetry inpatient
- d/c doxycline, will start ceftriaxone (h/o pcn allergies but no known cephalosporin all),
- sputum culture
- check procal in am
- duonebs RTC and prn
- start iv solumedrol RTC
2. AFIB - Currently Aflutter with variable conduction but rate controlled
- tele
- diltiazem if needed for rate control
- continue eliquis 2.5 bid
3. CHF - CHF w/ preserved EF, BNP down to 900 from > [id number], euvolemic to hypovolemic.
- continue ethacrynic acid with the hypertonic saline
- holding spironolactone (hyponatremia)
4. Hyponatremia - suspect more euvlemic hyponatremia/siadh. High urine osm and urine sodium but on diuretics + spironolactone. She has no evidence of volume o/d currently
- holding spironolactone for now
- ethacrynic acid
- start hypertonic saline 15 ml/hr for goal Na of 125 in am.
- nephrology consulted and notified
DVT PPX - on eliquis
Code status - DNR
[2024-07-21] MEDS: ZITHROMAX 500 MG PO (20:43)
[2024-07-21] MEDS: SOLU-MEDROL PF 125 MG IV (20:45)
[2024-07-21] MEDS: AZACTAM 2000 MG IV (20:50)
[2024-07-21] MEDS: STERILE WATER FOR INJECTION 10 ML IV (20:50)
[2024-07-21 21:00] VITALS: BP 153/107
[2024-07-21] MEDS: DUONEB 3 ML INH (21:08)
[2024-07-21 21:14] LABS: Osmolality Urine 394 mOsm/kg (300-900)
[2024-07-21 21:30] LABS: Urine Sodium 137 mmol/L (30-90)
[2024-07-21 21:39] LABS: Blood Urea Nitrogen 16 mg/dl (7-17); Calcium 8.7 mg/dl (8.4-10.2); Carbon Dioxide 30 mmol/L (22-30); Chloride 83 mmol/L (98-107); Estimated Creatinine Clearance 54 ml/min; Glucose 145 mg/dl (70-99); Potassium 3.5 mmol/L (3.5-5.1); Sodium 120 mmol/L (135-145); eGFR > 60.00
[2024-07-21 21:40] VITALS: BP 133/83; BMI 22.5
[2024-07-21] MEDS: MELATONIN 5 MG PO (21:57)
--- NOTE | 2024-07-21 22:10 | PTCARENOTE ---
Patient arrived via stretcher from ED. Patient aaox3, able to make needs known. Patient on 3L NC, daughter in law at bedside. Patient went into afib, EKG done per request from night covering Suzanna Conrad. EKG shows STEMI with aflutter, covering
provider aware and spoke with cardiology. Confirmed not a real STEMI with cardiology.
[2024-07-21] MEDS: SODIUM CHLORIDE 3% 250 IV (22:22)
[2024-07-21] MEDS: EDECRIN 50 MG IV (22:51)
[2024-07-22 03:32] VITALS: BP 122/57
[2024-07-22 04:06] LABS: Blood Urea Nitrogen 18 mg/dl (7-17); Calcium 8.7 mg/dl (8.4-10.2); Carbon Dioxide 35 mmol/L (22-30); Chloride 84 mmol/L (98-107); Estimated Creatinine Clearance 49 ml/min; Glucose 147 mg/dl (70-99); Potassium 3.6 mmol/L (3.5-5.1); Sodium 124 mmol/L (135-145); eGFR > 60.00
[2024-07-22] MEDS: STERILE WATER FOR INJECTION 10 ML IV ×3 (05:02→21:30)
[2024-07-22] MEDS: SOLU-MEDROL PF 40 MG IV ×2 (05:02→17:47)
[2024-07-22] MEDS: AZACTAM 2000 MG IV ×3 (05:02→21:30)
[2024-07-22 06:00] VITALS: BMI 22.1
--- NOTE | 2024-07-22 06:46 | W.PN.UPDATE ---
Update Note
Progress Note Update
~2210 RN noted pt to have a HR in the 130s-140s. EKG and vitals obtained
~2240 BP 142/83 HR 94 on EKG-. EKG read STEMI- Dr. Roth interpreting- states that EKG is inappropriately reading and she is in a 3:1 flutter hold off on rate control meds for now.��
[2024-07-22 07:07] LABS: Hematocrit 43.4 % (37.0-47.0); Hemoglobin 14.7 g/dL (12.0-16.0); Mean Corp Hgb Conc. 33.9 g/dL (33.0-37.0); Mean Corpuscular Hgb 28.4 pg (27.0-31.0); Mean Corpuscular Volume 83.8 fL (81.0-99.0); Mean Platelet Volume 8.2 fL (7.4-10.4); Platelet Count 291 10^3/uL (130-400); Red Blood Cell Count 5.18 10^6/uL (4.20-5.40); Red Cell Dist. Width 19.4 % (11.5-14.5); White Blood Cell Count 5.1 10^3/uL (4.8-10.8)
[2024-07-22 07:16] VITALS: BP 113/62
[2024-07-22] MEDS: DUONEB 3 ML INH ×3 (07:27→19:39)
[2024-07-22 07:28] LABS: Blood Urea Nitrogen 19 mg/dl (7-17); Calcium 8.6 mg/dl (8.4-10.2); Carbon Dioxide 33 mmol/L (22-30); Chloride 84 mmol/L (98-107); Estimated Creatinine Clearance 42 ml/min; Glucose 145 mg/dl (70-99); Magnesium 1.3 mg/dl (1.6-2.3); Potassium 3.9 mmol/L (3.5-5.1); Sodium 124 mmol/L (135-145); eGFR > 60.00
[2024-07-22 07:58] LABS: Lipase 78 U/L (23-300)
[2024-07-22 08:01] LABS: D-Dimer < 0.27 ug/mlFEU (0.00-0.50)
[2024-07-22 08:12] LABS: Phosphorus 3.7 mg/dl (2.5-4.5)
[2024-07-22 08:14] LABS: Troponin I 0.345 ng/ml
[2024-07-22] MEDS: MAGNESIUM SULFATE 50 IV (08:24)
[2024-07-22] MEDS: EDECRIN 50 MG PO (08:25)
[2024-07-22] MEDS: TUMS EX (EXTRA STRENGTH) CHEWABLE TABLET 300 MG PO (08:25)
[2024-07-22] MEDS: PROTONIX 40 MG PO (08:25)
[2024-07-22] MEDS: ZITHROMAX 500 MG PO (08:25)
[2024-07-22] MEDS: PEPCID 40 MG PO (08:25)
[2024-07-22] MEDS: ASPIRIN 325 MG PO (08:51)
--- NOTE | 2024-07-22 08:57 | W.PN.HOSP.TC ---
Today's Communication/Plan
-
see PN
Assessment / Plan
Assessment / Plan
83yo F with PMHX of HFpEF, Afib on Eliquis, GERD, presbycusis came with worsening respiratory symptoms, hypoxia and cough. was admitted to
A/P:
#Acute hypoxic insufficiency 2/2 Bronchitis r/o pneumonia
previosuly COVID-19 and influenza neg
Check legionella and S.pneumonia urinary Ag, sputum Cx
Started on Azatreonam/Azithromycin
Bronchodilators and steroids
Mucolythics
Pulm consult
DDimer undetectable with wells score 0
#Elevated troponin
#A.flutter persisyent
#Chronic HFpEF
ASA, heparin drip EKG, telemetry, pending cardio consult
proBNP 800 - lower then prior, no concern for overt CHF
with 3:1 block - hold off rate control as per cardiology
Overnight EKG with computer read of STEMI reviewed with cardio, at that time deemed not to be ACS
Serial trop
#Acute on chronic hyponatremia
s/p hypertonic saline
SIADH component
Nephrology consult
serial BMP
#Hypomagenesemia
replete
follow BMP with PCP
#Cognitive impairment, possible unspecified dementia
with PMHx of alcohol abuse
poor historian
#Essential HTN
#GERD
cont home meds
DVT ppx on hep drip
DNR/DNI
I have spent at least 58min reviewing chart, test results, communication with patient, family and providing direct patient care
Anticipated Discharge: > 48 hours
Subjective/Interval History
-
Date of Service: July 22, 2024
Objective Data
-
Labs:
Laboratory Results
07/21/24 07/22/24 07/22/24
21:01 02:55 03:31
WBC
Hgb
Hct
Plt Count
APTT
Sodium 120 L Cancelled Cancelled
Potassium 3.5 Cancelled Cancelled
Chloride 83 L Cancelled Cancelled
Carbon Dioxide 30 Cancelled Cancelled
BUN 16 Cancelled Cancelled
Creatinine 0.6 Cancelled Cancelled
Glucose 145 H Cancelled Cancelled
Calcium 8.7 Cancelled Cancelled
07/22/24 07/22/24 07/22/24
03:40 06:19 08:32
WBC 5.1
Hgb 14.7
Hct 43.4
Plt Count 291
APTT Pending
Sodium 124 L 124 L
Potassium 3.6 3.9
Chloride 84 L 84 L
Carbon Dioxide 35 H 33 H
BUN 18 H 19 H
Creatinine 0.6 0.7
Glucose 147 H 145 H
Calcium 8.7 8.6
Vital Signs:
Vital Signs
Temp Pulse Resp BP Pulse Ox
97.4 F 58 16 113/62 97
07/22/24 07:16 07/22/24 07:32 07/22/24 07:32 07/22/24 07:16 07/22/24 07:32
Review of Systems
-
Unable to obtain full review of systems at this time due to: Dementia
History Source: Patient
Respiratory: Reports Cough and Trouble Breathing
Cardiac: Reports Other (chest tightness)
Physical Exam
-
General: Comfortable
HEENT: Normocephalic
Respiratory: Rhonchi (b/l)
Cardiac: Irregular Rhythm
GI: Soft, Nontender and Nondistended
Genito-urinary: No Costovertebral Tender
Musculoskeletal: No Clubbing, No Cyanosis and No Edema
Skin: Warm
Neuro: Awake, Alert and Oriented
Psych: Calm and Apparent Dementia
--- NOTE | 2024-07-22 09:13 | CON.CAR ---
Addendum entered and electronically signed by Franca Gandara MD 07/22/24 11:19:
I saw and examined the patient.
The DIRECTOR OF [employer]'s note was reviewed and I agree with the note.
Comment: Patient seen urgently at the bedside for co chest tightness, left shoulder pain and nausea. She is a difficult historian and very [employer]. Currently she is just c/o nausea that she thinks will be fixed by the egg custard. But she does think in
the past she has had cp with atrial flutter. She doesn't think she is always in it but has been present since admission for bronchitis. ECG was concerning for some RYAN in the precordial leads. She has not needed any ntg. Currently feeling improved.
She has rapid irreg rate and rhythm. She has diffuse bronchospasm. She has no edema. Inital rop 0.345. Given constelation of symptomsand troponin findings all concerning for ACS. She will remain NPO. Agree with hep gtt, last Eliquis last night. D/w
Dr Mitchell will proceed to cardiac cath. Otherwise, may be symptomatic from arrhythmia vs bronchitis. I will request op notes. She was in sinus in [facility], can consider cardioversion if needed but would prefer to do it after bronchitis resolved.
HFpEf is chronic doesn't appear volume overloaded.
Will follow.
Original Note:
Consultation
Consultation Request
Date/Time Consultation Requested: 07/22/24 8:30a
Date/Time Consultation Performed: 07/22/24 8:45a
Requesting Provider: Dr. Galan
Performing Provider: GRETCHEN Garcia for Dr. Gandara
Reason for Consultation: chest pain, abnormal troponin
Medical History
-
Chief Complaint: SOB
History of Present Illness:
Mrs. Dominguez is an 83 yo female with (known to her primary dairy hand, Dr. Jackson from [facility]), with paroxysmal atrial fibrillation/atrial flutter (on apixaban), iron deficiency anemia, hyponatremia, bowel obstruction
status post resection (early ), HFpEF and hypertension who presented to the ER with c/o shortness of breath. She is admitted to the hospitalist service for bronchitis on antibiotics. We are consulted for abnormal troponin and chest pain. She
c/o left shoulder/arm pain with nausea and dry heaves early this am. Troponin initially 07/21/24 was < 0.012 and this am is 0.345, EKG with new anterior ST elevation in V2 and V3.
Past Medical History
Past Medical History: Other (as above)
Past Surgical History: Bowel Resection
Social History
Tobacco: Former Smoker
Alcohol: Daily (wine)
Personal:
Living: Alone
Family History
Family History: Reviewed & Not Pertinent
Allergies / Home Medications
Allergy/AdvReac Type Severity Reaction Status Date / Time
furosemide (From Lasix) Allergy Rash Verified 07/18/24 17:40
Iodinated Contrast Media Allergy Unknown Verified 07/18/24 17:40
Penicillins Allergy Swelling Verified 07/18/24 17:40
shellfish derived Allergy Unknown Verified 07/18/24 17:40
Sulfa (Sulfonamide Allergy Swelling Verified 07/18/24 17:40
Antibiotics)
�Medication �Instructions �Recorded �Confirmed �Type
acetaminophen 500 mg tablet 500 mg PO Q6HPRN PRN mild pain 10/09/23 07/18/24 History
(Tylenol Extra Strength)
bismuth subsalicylate 262 mg 524 mg PO DAILY Gastrointestinal 10/09/23 07/18/24 History
tablet (Kaopectate (bismuth Issue
subsalicylate))
calcium carbonate (Tums) 300 mg PO DAILY Gastrointestinal 10/09/23 07/18/24 History
Issue
famotidine 40 mg tablet 40 mg PO DAILY Gastrointestinal 10/09/23 07/18/24 History
Issue
omeprazole 40 mg capsule,delayed 40 mg PO DAILY Gastrointestinal 10/09/23 07/18/24 History
release Issue
folic acid-vit B6-vit B12 2.5 1 tab PO DAILY 30 days #30 tabs 10/10/23 07/18/24 Rx
mg-25 mg-2 mg tablet (WesTab Max)
apixaban 2.5 mg tablet (Eliquis) 2.5 mg PO BID Blood Clot 03/22/24 07/18/24 History
Prevention/Tx
ethacrynic acid 25 mg tablet 50 mg (2 x 25 mg) PO DAILY #30 tabs 03/27/24 07/18/24 Rx
spironolactone 25 mg tablet 25 mg PO DAILY 30 days #30 tabs 03/27/24 07/18/24 Rx
melatonin 5 mg tablet 5 mg PO HS PRN insomnia 07/18/24 07/18/24 History
benzonatate 100 mg capsule 200 mg (2 x 100 mg) PO TIDPRN PRN 07/19/24 Rx
cough #9 caps
doxycycline hyclate 100 mg capsule 100 mg PO Q12 #12 caps 07/19/24 Rx
Review of Systems
-
History Source: Patient
All other systems: Negative unless noted
Physical Exam
Vital Signs
Temp Pulse Resp BP Pulse Ox
97.4 F 58 16 113/62 97
07/22/24 07:16 07/22/24 07:32 07/22/24 07:32 07/22/24 07:16 07/22/24 07:32
Lab Results
07/22/24 06:19
07/22/24 06:19
Troponin I 0.345 ng/ml H* 07/22/24 07:29
Kpq-[id number] Pept 900 pg/ml 07/21/24 15:30
Physical Exam
General: Other (elderly, frail)
HEENT: Normocephalic, Anicteric and Moist Mucous Membranes
Respiratory: Wheezes (diffuse expiratory) and Rhonchi (diffuse)
Cardiac: S1/S2 and Regular Rhythm
Breast: Deferred by me
GI: Soft, Non Distended and Normal Bowel Sounds
Rectal: Deferred by Provider
Genito-urinary: No Costovertebral Tender
Musculoskeletal: No Clubbing, No Cyanosis and No Edema
Skin: Warm and Dry
Neuro: AO x 3
Psych: Calm
Impression / Plan
-
NSTEMI - chest pain with left shoulder pain this am.
- initial troponin < 0.012 and now 0.345.
- EKG with new anterior ST elevation V2 and V3.
- currently pain free.
- IV Heparin and ASA this am.
- NPO and plan for cardiac catheterization today.
- repeat EKG now, since she is pain free.
Aflutter/afib - rate controlled.
- previously on Flecainide.
- on Eliquis 2.5mg BID for OAC, last dose last night, held this am for cath.
HFpEF - chronic, stable.
- no HF on CXR or exam.
- has allergy to Lasix and sulfa, so on ethacrynic acid and Aldactone as outpatient.
- SGLT2i unaffordable.
Bronchitis - acute.
- on antibiotics per hospitalist.
Fe deficiency anemia - chronic.
Data Reviewed
-
EKG: Tracing Personally Visualized and interpreted (Aflutter 88 bpm, new anterior ST elevation in V2 and V3)
Radiology: Report Reviewed by me (CXR NAD)
Medical Tests (Nuc Med, Echo etc): Report Reviewed by me (echo 02/2024: EF 60-65%, no RWMA, severely dilated atria, mild/mod TR, PASP 60-65mmHg)
Labs: Labs Reviewed by me
Old Records: Reviewed
[2024-07-22 09:23] LABS: APTT 28.6 Sec (23.4-35.0)
--- NOTE | 2024-07-22 09:33 | CON.PUL ---
Consultation
Consultation Request
Date/Time Consultation Requested: 07/22
Date/Time Consultation Performed: 07/22
Reason for Consultation: Hypoxia
Medical History
-
History of Present Illness:
History obtained from the patient and also reviewing hospital records. Patient is a pleasant 83-year-old female who was recently hospitalized 3 days ago for acute bronchitis, discharged on doxycycline. She now presents with worsening shortness of
breath. Patient also admits to productive cough, difficulty in expectoration. She denies hemoptysis, chest pain, chest tightness, PND, orthopnea. She admits to some mild swelling. She denies any PND, orthopnea to me but records suggest she was
complaining of shortness of breath upon lying flat. Upon arrival to [facility] on hospital, 94% saturation, per ED, coarse breath sounds at the base. Patient was hyponatremic with elevated white count. There was a suggestion of possible heart failure
versus infiltrate per chest x-ray. Patient was admitted for further management as she required oxygen therapy
Patient denies any dysphagia, choking, fevers, chills, blood in urine or stool, diarrhea
.
PMH: History of heart failure, atrial fibrillation/flutter on anticoagulation, hypertension, GERD, anemia. History of bowel obstruction with bowel resection around 2004
Past Medical History
Past Medical History: None (See above)
Past Surgical History: None (See above)
Social History
Tobacco: Non-smoker
Alcohol: Occasional
Drug: None
Living: With Family
Employment: Retired
Family History
Family History: Reviewed & Not Pertinent
Allergies / Home Medications
Allergies
Allergy/AdvReac Type Severity Reaction Status Date / Time
furosemide (From Lasix) Allergy Rash Verified 07/18/24 17:40
Iodinated Contrast Media Allergy Unknown Verified 07/18/24 17:40
Penicillins Allergy Swelling Verified 07/18/24 17:40
shellfish derived Allergy Unknown Verified 07/18/24 17:40
Sulfa (Sulfonamide Allergy Swelling Verified 07/18/24 17:40
Antibiotics)
Home Medications
�Medication �Instructions �Recorded �Confirmed �Last Taken �Type
acetaminophen 500 mg tablet 500 mg PO Q6HPRN PRN mild pain 10/09/23 07/18/24 Unknown History
(Tylenol Extra Strength)
bismuth subsalicylate 262 mg 524 mg PO DAILY Gastrointestinal 10/09/23 07/18/24 Unknown History
tablet (Kaopectate (bismuth Issue
subsalicylate))
calcium carbonate (Tums) 300 mg PO DAILY Gastrointestinal 10/09/23 07/18/24 Unknown History
Issue
famotidine 40 mg tablet 40 mg PO DAILY Gastrointestinal 10/09/23 07/18/24 Unknown History
Issue
omeprazole 40 mg capsule,delayed 40 mg PO DAILY Gastrointestinal 10/09/23 07/18/24 Unknown History
release Issue
folic acid-vit B6-vit B12 2.5 1 tab PO DAILY 30 days #30 tabs 10/10/23 07/18/24 Unknown Rx
mg-25 mg-2 mg tablet (WesTab Max)
apixaban 2.5 mg tablet (Eliquis) 2.5 mg PO BID Blood Clot 03/22/24 07/18/24 Unknown History
Prevention/Tx
ethacrynic acid 25 mg tablet 50 mg (2 x 25 mg) PO DAILY #30 tabs 03/27/24 07/18/24 Unknown Rx
spironolactone 25 mg tablet 25 mg PO DAILY 30 days #30 tabs 03/27/24 07/18/24 Unknown Rx
melatonin 5 mg tablet 5 mg PO HS PRN insomnia 07/18/24 07/18/24 Unknown History
benzonatate 100 mg capsule 200 mg (2 x 100 mg) PO TIDPRN PRN 07/19/24 Unknown Rx
cough #9 caps
doxycycline hyclate 100 mg capsule 100 mg PO Q12 #12 caps 07/19/24 Unknown Rx
Review of Systems
Vitals / Labs / Diagnostic Testing
Vital Signs
Temp Pulse Resp BP Pulse Ox
97.4 F 58 16 113/62 97
07/22/24 07:16 07/22/24 07:32 07/22/24 07:32 07/22/24 07:16 07/22/24 07:32
Lab Data
07/22/24 06:19
07/22/24 06:19
Laboratory Results
07/22/24
09:02
APTT 28.6
Microbiology
07/21/24 15:30 Nasal Swab Influenza Types A & B (YENI) - Final
Negative for Influenza A & B, NAAT
Negative results must be combined with clinical observations
and patient history.
Nucleic Acid Amplification test (NAAT)performed on the
[employer] platform.
Diagnostic Testing:
Physical Exam
-
HEENT: Normocephalic and Anicteric
Cardiovascular: S1/S2, Irregular Rhythm and Murmur (n)
Respiratory: Wheeze (n), Rales (Bibasilar), Rhonchi (few) and Non-Labored Respirations
GI: Soft, Non Distended and Non Tender
Neurology: Awake, Alert and Oriented
Skin: Good Color
General: Comfortable
Assessment
-
83-year-old female with history of atrial fibrillation on anticoagulation, history of heart failure, presents with recent bronchitic symptoms status post treatment with doxycycline without improvement, now found to be hypoxic requiring 3 L. Chest
x-ray suggested bibasilar infiltrates per my review
Acute hypoxic respiratory insufficiency
Requiring 3 L
Recent admission for bronchitis, treated with doxycycline
Progressive symptoms
Bilateral patchy infiltrate per chest x-ray
My review
Leukocytosis
Hyponatremia
Elevated troponin
Conditions present prior to admission
Hypertension
Atrial fibrillation/flutter on Eliquis and flecainide
GERD
History of bowel resection for bowel obstruction 2004
DNR
Plan/recommendations
At this time, patient appears to be comfortable. To me she denied any significant chest pain, however she described chest pain and arm pain to other providers
She is now status post cardiac catheterization with out obvious coronary disease
Ejection fraction normal
Moving forward
Suspect that she has significant upper airway bronchitis, poor airway clearance
Abdominal imaging from 2023 reveals no significant basilar interstitial disease
Unclear whether aspiration as a cause, patient denies any significant symptoms
The patient has minimal smoking history
Ramped up airway clearance
Continue DuoNebs 4 times a day, budesonide twice a day
Continue IV steroids for now
Will add 3% saline nebulizer once a day
Add Acapella
Continue antibiotics, currently on azithromycin/aztreonam
GERD therapy: Remains on Pepcid
DVT prophylaxis: On heparin drip at this time. Unclear whether patient is taking outpatient Eliquis
Reviewed with patient
Will follow
[2024-07-22] MEDS: HEPARIN 25000 UNITS/250 ML IV (10:01)
[2024-07-22] MEDS: DUONEB INH (11:14)
--- NOTE | 2024-07-22 11:36 | ITS.CL.CATH ---
[employer] Work[employer] - Catheterization
Cardiac Catheterization
Procedure Report:
CARDIAC CATHETERIZATION REPORT
Date of Procedure: 07/22/2024
Referring: Lili Gandara M.D.
INDICATION: Shortness of breath, EKG changes with left arm pain and nausea, concerning for ACS.
PROCEDURE:
1. Left heart catheterization.
2. Coronary angiography
3. Left ventriculography.
A total of 23 minutes of procedural/moderate sedation was utilized. An independent director of medical staff services was present to assist with and help manage the patient's level of consciousness and physiologic status.
ACCESS:
1. 6 Irish right artery using a modified Seldinger technique.
CATHETERS:
1. 5 Irish JR4.
2. 5 Irish JL 3.5.
3. 6 Irish angled pigtail.
HEMODYNAMIC DATA
Weight (kg): 51.3
AO (s/d/x, mmHg): 106/55/71
LV (s/x mmHg): 111/14
LEFT VENTRICULOGRAPHY: Performed in WALTER/AP and KOREAN/CAU projections. Normal left ventricular size with severe hypokinesis/akinesis of the mid septum with preservation of the anterior, lateral and inferior gottlieb with preserved systolic function.
LVEF estimated at 55-60%. There is no mitral valve regurgitation. There is no aortic valve insufficiency. The aortic root and visualized ascending aorta, aortic arch and descending thoracic aorta appear normal.
CORONARY ANGIOGRAPHY
Dominance: Right.
Left Main: Short, bifurcating vessel. There is no coronary artery disease.
LAD: Normal size vessel giving rise to 3 diagonals. There are minor luminal irregularities including a 30% lesion in the mid vessel immediately after the origin of D2.
Ramus: Congenitally absent.
Circumflex: Large size, nondominant vessel giving rise to a single obtuse marginal which subsequently bifurcates into 2 daughter vessels. The left circumflex subsequently terminates as a left posterolateral branch. There is no coronary artery
disease.
RCA: Large size, dominant vessel. There are minor luminal irregularities.
INTERVENTION(S)
None.
Closure Device: Vascular band.
Radiation (mGy): 222.03
DAP (cm2.Gy): 16.2767
Fluoroscopy time (minutes): 3.4
CONCLUSIONS
1. Right dominant circulation with a 30% lesion in the mid LAD and luminal irregularities in the RCA but no occlusive coronary artery disease.
2. Focal, severe hypokinesis/akinesis of the mid septum without corresponding coronary lesion, consistent with Takotsubo variant versus focal myocarditis versus infiltrative/inflammatory process (sarcoidosis) and preserved systolic function, LVEF =
55-60%.
3. Top normal to mildly elevated filling pressures (LVEDP = 14 mmHg at 51.3 kg).
RECOMMENDATIONS:
1. Expectant management after cardiac catheterization via right radial approach.
2. Limited weight bearing on the right wrist for one week.
3. Treatment of underlying acute process (bronchitis).
4. GDMT as hemodynamics will tolerate for cardiomyopathy. No role for diuresis at this time.
5. Echocardiogram ordered and pending.
Copy to: Lili Gandara M.D., Jordin Galan M.D., Kt Lee M.D.
Angel Mitchell DO, FACC, FACP
[2024-07-22 12:00] VITALS: BP 112/57
--- NOTE | 2024-07-22 12:00 | PTCARENOTE ---
Received pt this AM, in no apparent distress. Resting comfortably, Ox3. Breath sounds with rhonchi and ex wheezing prior to receiving neb tx. AM troponin resulted at 0.345, made aware, EKG obtained, heparin gtt started and 325mg ASA given. Upon
further questioning, pt stated that she was having some pain in her L shoulder and she started dry heaving as I was placing a new IV. Cardiology seen. Pt sent to the labor utilization superintendent.
--- NOTE | 2024-07-22 12:27 | W.CON.NEPH ---
Consultation
-
Date/Time Consultation Requested: 07/21/247
Date/Time Consultation Performed: 07/22/24 1220
Requesting Provider: Yasir Roth MD
Performing Provider: Eli Summers
Reason for Consultation: Hypoantremia
Medical History
-
Chief Complaint: SOB
History of Present Illness:
83-year-old female with past medical history significant for atrial fibrillation on anticoagulation with Eliquis, CHF with preserved EF On ethacrynic acid, spironolactone, hypertension, iron deficiency anemia, GERD on PPI, Pepcid, who presents to
the emergency department with shortness of breath on 07/21.
Patient was seen here about 3 days ago with history of cough congestion and shortness of breath.Diagnosed as bronchitis and started on Doxycycline with improvement of symptoms and d/c on 07/19, COVID and flu test were negative.and since her discharge
she still continued to have the cough and shortness of breath. Symptoms were worse and hence presented to the hospital yesterday. During the night she became tachycardic and this morning had chest pain radiating to left shoulder and EKG changes
hands was emergently taken to the heart cath-which shows nonocclusive CAD, LVEDP was 14. She does have focal severe hypokinesis/akinesis of the mid septum which consistent with Takotsubo variant versus focal myocarditis versus infiltrate
rate/inflammatory process. She has normal EF 55-60%.
During the last admission her sodium was in were low 130 range. Says the admission it has worsened from 123-120 during the night. Started on 3% saline with improvement up to 124 today.
During the visit patient reports no chest pain shortness of breath has improved. Denies any active nausea or vomiting or abdominal pain or diarrhea. No lower extremity edema. She reports has decreased appetite and was able to take her medications.
No fevers or chills.
.
Past Medical History
CHF (Preserved EF),paroxysmal atrial fibrillation recently on Eliquis, hypertension, bowel obstruction status post bowel resection 20 years ago, GERD, anemia
Social History
Tobacco: Non-Smoker
Alcohol: Daily (wine)
Drug: None
Family History
Family History: Not Pertinent
Allergies / Home Medications
Allergy/AdvReac Type Severity Reaction Status Date / Time
furosemide (From Lasix) Allergy Rash Verified 07/18/24 17:40
Iodinated Contrast Media Allergy Unknown Verified 07/18/24 17:40
Penicillins Allergy Swelling Verified 07/18/24 17:40
shellfish derived Allergy Unknown Verified 07/18/24 17:40
Sulfa (Sulfonamide Allergy Swelling Verified 07/18/24 17:40
Antibiotics)
�Medication �Instructions �Recorded �Confirmed �Type
acetaminophen 500 mg tablet 500 mg PO Q6HPRN PRN mild pain 10/09/23 07/18/24 History
(Tylenol Extra Strength)
bismuth subsalicylate 262 mg 524 mg PO DAILY Gastrointestinal 10/09/23 07/18/24 History
tablet (Kaopectate (bismuth Issue
subsalicylate))
calcium carbonate (Tums) 300 mg PO DAILY Gastrointestinal 10/09/23 07/18/24 History
Issue
famotidine 40 mg tablet 40 mg PO DAILY Gastrointestinal 10/09/23 07/18/24 History
Issue
omeprazole 40 mg capsule,delayed 40 mg PO DAILY Gastrointestinal 10/09/23 07/18/24 History
release Issue
folic acid-vit B6-vit B12 2.5 1 tab PO DAILY 30 days #30 tabs 10/10/23 07/18/24 Rx
mg-25 mg-2 mg tablet (WesTab Max)
apixaban 2.5 mg tablet (Eliquis) 2.5 mg PO BID Blood Clot 03/22/24 07/18/24 History
Prevention/Tx
ethacrynic acid 25 mg tablet 50 mg (2 x 25 mg) PO DAILY #30 tabs 03/27/24 07/18/24 Rx
spironolactone 25 mg tablet 25 mg PO DAILY 30 days #30 tabs 03/27/24 07/18/24 Rx
melatonin 5 mg tablet 5 mg PO HS PRN insomnia 07/18/24 07/18/24 History
benzonatate 100 mg capsule 200 mg (2 x 100 mg) PO TIDPRN PRN 07/19/24 Rx
cough #9 caps
doxycycline hyclate 100 mg capsule 100 mg PO Q12 #12 caps 07/19/24 Rx
Review of Systems
-
All other systems: Negative unless noted
Physical Exam
Vital Signs
Vital Signs
Temp Pulse Resp BP Pulse Ox
97.7 F 60 18 112/57 95
07/22/24 12:00 07/22/24 12:00 07/22/24 12:00 07/22/24 12:00 07/22/24 12:00
Lab Results
WBC 5.1 10^3/uL (4.8-10.8) 07/22/24 06:19
RBC 5.18 10^6/uL (4.20-5.40) 07/22/24 06:19
Hgb 14.7 g/dL (12.0-16.0) 07/22/24 06:19
Hct 43.4 % (37.0-47.0) 07/22/24 06:19
Plt Count 291 10^3/uL (130-400) 07/22/24 06:19
eGFR > 60.00 07/22/24 06:19
Phosphorus 3.7 mg/dl (2.5-4.5) 07/22/24 03:40
Vsy-S-Nnzafewtncj Pept 900 pg/ml 07/21/24 15:30
Albumin 3.6 g/dl (3.5-5.0) 07/21/24 15:30
Labs
07/22/24 06:19
07/22/24 12:29
Physical Exam
General: Awake, Alert, Oriented, AOx3, No Distress and Nontoxic
HEENT: EOMI, Anicteric, Neck Supple and No JVD
Respiratory: Rhonchi, Normal Excursion and Nonlabored Respirations
Cardiac: S1/S2 and Regular Rate/Rhythm
Breast: Deferred by me
Abdomen: Soft, Nontender and Nondistended
Musculoskeletal: No Cyanosis and No Edema
Neuro: Nonfocal/Grossly Intact
Psych: Mood/afflect pleasant, Insight/judgement good and Appropriate
Data Reviewed
-
Radiology: Report Reviewed by me and Discussed with Patient
Labs: Labs Reviewed by me, Discussed with Nurse and Discussed with Patient
Assessment/Plan
-
IMP:
Acute hypoxic insufficiency 2/2 Bronchitis
Elevated troponin with chest pain, s/p [facility] 07/22-no occlusive disease but RWMA
A.flutter persistent
Chronic HFpEF
Acute on chronic hyponatremia
Hypomagnesemia
Cognitive impairment, possible unspecified dementia
Essential HTN
GERD
Plan:
A/w SOB after recent d/c fro bronchitis
Hyponatremia-u osmo 394, U na high with diuresis
suspect SIADH from bronchitis
recheck labs now, completing 3% soon
if sodium no improvement likely smasca tonight
BP stable
Replace the magnesium
cotn ethacrynic acid, hold spironolactone
LVEDP only 14( top Normal)
Pending echocardiogram with a focal severe hypokinesis/akinesis of the mid septum
Discussed with the patient and nursing
[2024-07-22 12:56] LABS: Blood Urea Nitrogen 22 mg/dl (7-17); Calcium 8.3 mg/dl (8.4-10.2); Carbon Dioxide 34 mmol/L (22-30); Chloride 86 mmol/L (98-107); Estimated Creatinine Clearance 37 ml/min; Glucose 137 mg/dl (70-99); Potassium 3.6 mmol/L (3.5-5.1); Sodium 124 mmol/L (135-145); eGFR > 60.00
[2024-07-22 13:34] LABS: Troponin I 0.332 ng/ml
[2024-07-22 15:24] VITALS: BP 98/53
--- NOTE | 2024-07-22 15:36 | VNURNOTE ---
[facility] liaison attempted to meet with patient at bedside. She was sleeping soundly. Will attempt again later.
--- NOTE | 2024-07-22 16:56 | CM ---
Alert awake oriented patient who lives alone in a 2 story home with 1 steps to enter and 14 steps to bed/bathroom. She is independent in activates of daily living.She does drive .No DME .Offered VN pt requested [facility] Liaison Re notified.
Had [facility] in past .[facility] hx
Pharmacy [facility]
PCP Dr Thomson
PLAN Home with [facility]
[2024-07-22 17:58] LABS: Blood Urea Nitrogen 26 mg/dl (7-17); Calcium 8.3 mg/dl (8.4-10.2); Carbon Dioxide 31 mmol/L (22-30); Chloride 88 mmol/L (98-107); Estimated Creatinine Clearance 37 ml/min; Glucose 149 mg/dl (70-99); Potassium 3.7 mmol/L (3.5-5.1); Sodium 126 mmol/L (135-145); eGFR > 60.00
[2024-07-22] MEDS: SODIUM CHLORIDE 3% FOR INHALATION INH (18:17)
[2024-07-22] MEDS: TYLENOL 650 MG PO (19:14)
[2024-07-22] MEDS: ELIQUIS 2.5 MG PO (19:15)
[2024-07-22] MEDS: PULMICORT 0.5 MG INH (19:39)
[2024-07-22 19:51] VITALS: BP 96/52
[2024-07-22 21:08] LABS: Blood Urea Nitrogen 29 mg/dl (7-17); Calcium 8.3 mg/dl (8.4-10.2); Carbon Dioxide 32 mmol/L (22-30); Chloride 85 mmol/L (98-107); Estimated Creatinine Clearance 30 ml/min; Glucose 230 mg/dl (70-99); Potassium 3.5 mmol/L (3.5-5.1); Sodium 125 mmol/L (135-145); eGFR 55.21
[2024-07-22] MEDS: MELATONIN 5 MG PO (22:06)
[2024-07-22] MEDS: SAMSCA 7.5 MG PO (22:06)
[2024-07-22 23:46] VITALS: BP 107/52
[2024-07-23 03:23] VITALS: BP 114/60
[2024-07-23] MEDS: SOLU-MEDROL PF 40 MG IV ×2 (05:02→17:34)
[2024-07-23] MEDS: STERILE WATER FOR INJECTION 10 ML IV ×3 (05:03→22:06)
[2024-07-23] MEDS: AZACTAM 2000 MG IV ×3 (05:03→22:06)
[2024-07-23 06:00] VITALS: BMI 22.7
[2024-07-23 06:39] LABS: % Basophils 0.1 % (0-2); % Immature Granulocytes 0.7 % (0-0.5); % Lymphocytes 8.3 % (20.5-51.1); % Monocytes 6.5 % (1.7-9.3); % Neutrophils 84.4 % (42.2-75.2); Absolute Immature Granulocytes 0.1 10^3/uL (0-0.05); Absolute Lymphocytes 0.6 10^3/uL (1.2-3.4); Absolute Monocytes 0.5 10^3/uL (0.1-0.6); Absolute Neutrophils 6.2 10^3/uL (1.4-6.5); Hematocrit 41.6 % (37.0-47.0); Hemoglobin 13.9 g/dL (12.0-16.0); Mean Corp Hgb Conc. 33.4 g/dL (33.0-37.0); Mean Corpuscular Hgb 28.5 pg (27.0-31.0); Mean Corpuscular Volume 85.2 fL (81.0-99.0); Mean Platelet Volume 8.2 fL (7.4-10.4); Nucleated Red Blood Cells % 0 %; Platelet Count 348 10^3/uL (130-400); Red Blood Cell Count 4.88 10^6/uL (4.20-5.40); Red Cell Dist. Width 19.7 % (11.5-14.5); White Blood Cell Count 7.3 10^3/uL (4.8-10.8)
[2024-07-23 06:59] LABS: ALT (SGPT) 24 U/L (0-35); AST (SGOT) 19 U/L (14-36); Albumin 3.8 g/dl (3.5-5.0); Alkaline Phosphatase 62 U/L (38-126); Blood Urea Nitrogen 34 mg/dl (7-17); Carbon Dioxide 34 mmol/L (22-30); Chloride 85 mmol/L (98-107); Estimated Creatinine Clearance 27 ml/min; Glucose 149 mg/dl (70-99); Potassium 4.2 mmol/L (3.5-5.1); Sodium 129 mmol/L (135-145); Total Bilirubin 0.4 mg/dl (0.2-1.3); Total Protein 6.5 g/dl (6.3-8.2); eGFR 49.24
[2024-07-23] MEDS: DUONEB 3 ML INH ×3 (07:10→19:49)
[2024-07-23] MEDS: SODIUM CHLORIDE 3% FOR INHALATION 1 VIAL INH (07:10)
[2024-07-23] MEDS: PULMICORT 0.5 MG INH ×2 (07:10→19:49)
[2024-07-23 07:25] VITALS: BP 118/66
[2024-07-23 07:30] LABS: TSH 5.18 uIU/ml (0.47-4.68)
[2024-07-23] MEDS: PEPCID 20 MG PO (08:32)
[2024-07-23] MEDS: LOW STRENGTH ASPIRIN 81 MG PO (08:32)
[2024-07-23] MEDS: EDECRIN 50 MG PO (08:32)
[2024-07-23] MEDS: TUMS EX (EXTRA STRENGTH) CHEWABLE TABLET 300 MG PO (08:32)
[2024-07-23] MEDS: ELIQUIS 2.5 MG PO ×2 (08:32→19:01)
[2024-07-23] MEDS: ZITHROMAX 500 MG PO (08:32)
[2024-07-23] MEDS: PROTONIX 40 MG PO (08:32)
--- NOTE | 2024-07-23 08:42 | W.PN.CD ---
Today's Communication / Plan
-
- Troponin elevation: Acute nonischemic myocardial injury in the setting of bronchitis.
- Nonobstructive coronary artery disease on cardiac catheterization yesterday.
- Echocardiogram today, then no further workup from a cardiac standpoint at this time--can follow-up with primary [employer]ist as an outpatient (Dr. Jackson from [facility]).
Impression / Plan
-
83 yo female with (known to her primary [employer] Specialist, Dr. Jackson from [facility]), with paroxysmal atrial fibrillation/atrial flutter (on apixaban), iron deficiency anemia, hyponatremia, bowel obstruction status post
resection (early ), HFpEF and hypertension who presented to the ER with c/o shortness of breath. She is admitted to the hospitalist service for bronchitis on antibiotics. We are consulted for abnormal troponin and chest pain. She c/o left
shoulder/arm pain with nausea and dry heaves early this am. Troponin initially 07/21/24 was < 0.012 and this am is 0.345, EKG with new anterior ST elevation in V2 and V3.
Troponin elevation: Acute nonischemic myocardial injury in the setting of bronchitis.
- Nonobstructive coronary artery disease on cardiac catheterization yesterday.
- Echocardiogram today, then no further workup from a cardiac standpoint at this time--can follow-up with primary [employer] Specialist as an outpatient.
Paroxysmal aflutter/afib - rate controlled.
- previously on Flecainide.
- Eliquis 2.5 mg BID for OAC resumed.
- Intrinsically rate-controlled.
HFpEF - chronic, stable.
- no HF on CXR or exam.
- has allergy to Lasix and sulfa, so on ethacrynic acid and Aldactone as outpatient.
- SGLT2i unaffordable.
Bronchitis - acute.
- Continue antibiotics as per Hospitalist.
Fe deficiency anemia - chronic.
Physical Exam
Vital Signs/Labs
Vital Signs
Temp Pulse Resp BP Pulse Ox
98.7 F 88 18 118/66 92
07/23/24 07:25 07/23/24 07:25 07/23/24 07:25 07/23/24 07:25 07/23/24 07:25
07/22/24 07/23/24 07/24/24
06:59 06:59 06:59
Actual Weight 51.341 kg 52.707 kg
07/23/24 06:07
07/23/24 06:07
APTT Cancelled 07/22/24 16:00
Magnesium 2.0 mg/dl (1.6-2.3) 07/23/24 06:07
TSH 5.18 uIU/ml (0.47-4.68) H 07/23/24 06:07
07/21/24
15:30
Okm-O-Jchuycnjrxy Pept 900
LAB Results
07/21/24 07/22/24 07/22/24
15:30 07:29 12:29
Troponin I < 0.012 0.345 H* 0.332 H*
07/22/24
20:00
Troponin I Cancelled
Physical Exam
Constitutional: No acute distress and Comfortable
EENT: Anicteric
Cardiovascular: Rhythm & rate is regular, Pedal edema is absent, Systolic murmur absent and Pedal edema present
Respiratory: Respiratory effort normal and Crackles Present (Right base)
GI: Soft
Neuro/Psych: AO x 3
Other: Skin (Warm, dry, intact)
Data Reviewed
-
Date of Service: July 23, 2024
EKG: Tracing Personally Visualized and interpreted (Telemetry: Paroxysmal atrial fibrillation/flutter, sinus rhythm)
Labs: Labs Reviewed by me
[2024-07-23 08:47] LABS: Free T4 1.18 ng/dl (0.78-2.19)
--- NOTE | 2024-07-23 09:50 | W.PN.NEPH.PH ---
Today's Communication / Plan
-
Continue diuretic
Assessment/Plan
-
IMP:
Acute hypoxic insufficiency 2/2 Bronchitis
Elevated troponin with chest pain, s/p [facility] 07/22-no occlusive disease but RWMA
A.flutter persistent
Chronic HFpEF
Acute on chronic hyponatremia
Hypomagnesemia
Cognitive impairment, possible unspecified dementia
Essential HTN
GERD
Plan:
A/w SOB after recent d/c fro bronchitis
Hyponatremia-u osmo 394, U na high with diuresis
suspect SIADH from bronchitis
cotn ethacrynic acid, hold spironolactone
LVEDP only 14( top Normal)
Sodium improved to 129 with Samsca
Continue fluid management
-
-
Date of Service: July 23, 2024
CC / HPI / ROS
-
Chief Complaint:
Shortness of breath
History of Present Illness:
Presents with CHF/bronchitis developed hyponatremia
Review of Systems:
Mild shortness of breath remains on oxygen
Labs
-
Labs:
WBC 7.3 10^3/uL (4.8-10.8) 07/23/24 06:07
RBC 4.88 10^6/uL (4.20-5.40) 07/23/24 06:07
Hgb 13.9 g/dL (12.0-16.0) 07/23/24 06:07
Hct 41.6 % (37.0-47.0) 07/23/24 06:07
Plt Count 348 10^3/uL (130-400) 07/23/24 06:07
Sodium 129 mmol/L (135-145) L 07/23/24 06:07
Potassium 4.2 mmol/L (3.5-5.1) 07/23/24 06:07
Chloride 85 mmol/L (98-107) L 07/23/24 06:07
Carbon Dioxide 34 mmol/L (22-30) H 07/23/24 06:07
BUN 34 mg/dl (7-17) H 07/23/24 06:07
Creatinine 1.1 mg/dL (0.6-1.0) H 07/23/24 06:07
eGFR 49.24 07/23/24 06:07
Glucose 149 mg/dl (70-99) H 07/23/24 06:07
Calcium 9.0 mg/dl (8.4-10.2) 07/23/24 06:07
Phosphorus 3.7 mg/dl (2.5-4.5) 07/22/24 03:40
Gkz-O-Gadgnhslnrw Pept 900 pg/ml 07/21/24 15:30
Albumin 3.8 g/dl (3.5-5.0) 07/23/24 06:07
Physical Exam
-
Vital Signs:
Vital Signs
Temp Pulse Resp BP Pulse Ox
98.7 F 88 18 118/66 92
07/23/24 07:25 07/23/24 07:25 07/23/24 07:25 07/23/24 07:25 07/23/24 07:25
Respiratory:: Bilateral: Rhonchi
Lung Excursion:: Normal
Abdomen:: Soft
Bowel Sounds:: Normal
Extremity Edema:: +1: Bilateral:
--- NOTE | 2024-07-23 09:56 | VNURNOTE ---
Home Health Liaison met with patient at bedside to discuss [facility] nurse/therapy, visits, schedule and homebound status. Patient is agreeable and understands that visits at home will be 2-3 x per week to assess and teach medical management.
Patient is aware that [facility] will contact them for start of care in 1-2 days after discharge from .
[facility] referral completed in [facility].
--- NOTE | 2024-07-23 10:45 | W.PN.PUL3 ---
Today's Communication / Plan
-
Continue steroids, antibiotics
Continue airway clearance
PT/OT
Assessment
-
83-year-old female with history of atrial fibrillation on anticoagulation, history of heart failure, presents with recent bronchitic symptoms status post treatment with doxycycline without improvement, now found to be hypoxic requiring 3 L. Chest
x-ray suggested bibasilar infiltrates per my review
Acute hypoxic respiratory insufficiency
Requiring 3 L
Recent admission for bronchitis, treated with doxycycline
Progressive symptoms
Bilateral patchy infiltrate per chest x-ray
My review
Leukocytosis
Hyponatremia
Elevated troponin
Conditions present prior to admission
Hypertension
Atrial fibrillation/flutter on Eliquis and flecainide
GERD
History of bowel resection for bowel obstruction 2004
DNR
Plan/recommendations
At this time, patient appears to be comfortable.
Symptoms improved, chest exam improved
Echocardiogram 06/26/2024 normal biventricular function, PA pressure 38
Moving forward
Suspect that she has significant upper airway bronchitis, poor airway clearance
Abdominal imaging from 2023 reveals no significant basilar interstitial disease
Unclear whether aspiration as a cause, patient denies any significant symptoms
The patient has minimal smoking history
Continue with airway clearance
Continue DuoNebs 4 times a day, budesonide twice a day
Continue IV steroids for now, no change
Continue 3% saline nebulizer once a day
Continue Acapella
Sputum culture pending
Continue antibiotics, currently on azithromycin/aztreonam
GERD therapy: Remains on Pepcid
DVT prophylaxis: Eliquis
Reviewed with patient
Will follow
Subjective Data
-
Date of Service:
Date of Service: July 23, 2024
Subjective:
Patient is feeling improved. She still has productive cough but less volume of mucus. Denies hemoptysis. Complaining of fatigue. Was busy with tests all morning. Denies chest pain, nausea, abdominal pain
Objective Data
Data Reviewed
Vital Signs / I&O / Oxygen:
Vital Signs
Temp Pulse Resp BP Pulse Ox
98.7 F 88 18 118/66 92
07/23/24 07:25 07/23/24 07:25 07/23/24 07:25 07/23/24 07:25 07/23/24 09:47
Intake and Output
07/22/24 07/23/24 07/24/24
06:59 06:59 06:59
Intake Total 360 / 360
Balance 360 / 360
SaO2 92
Nasal Cannula flow liters per 2
minute
Physical Exam
General: Comfortable
HEENT: Normocephalic and Anicteric
Cardiovascular: S1-S2, Regular Rhythm, Murmur (n), Rub (n) and Peripheral Edema (tr)
Respiratory: Wheeze (few), Crackles (few), Rhonchi (few) and Non-Labored Respirations
GI: Soft, Non Distended and Non Tender
Neurology: Awake, Alert and No Motor Deficits
Skin: Cyanosis (n), Jaundice (n) and Rash (n)
Labs/Micro/Reports
Lab Data
07/23/24 06:07
07/23/24 06:07
Laboratory Results
07/22/24
16:00
APTT Cancelled
Microbiology
07/21/24 20:24 Nose MRSA Screen - Final
No Methicillin Resistant Staphylococcus aureus isolated.
07/22/24 07:31 Urine Legionella Urinary Antigen - Final
Negative for Legionella pneumophila Serogroup 1 antigen.
A negative result does not rule out the possiblity of
Legionella infection due to other serogroups or species of
Legionella. Clinical correlation is recommended.
07/22/24 07:31 Urine Streptococcus pneumoniae Antigen (M - Final
Negative for Streptococcus pneumoniae antigen.
A negative result does not exclude infection with
Streptococcus pneumoniae. Clinical correlation is
recommended.
07/21/24 20:25 Sputum Respiratory Culture - Final
07/21/24 20:25 Sputum Gram Stain - Final
07/21/24 15:30 Nasal Swab Influenza Types A & B (YENI) - Final
Negative for Influenza A & B, NAAT
Negative results must be combined with clinical observations
and patient history.
Nucleic Acid Amplification test (NAAT)performed on the
[employer] platform.
[2024-07-23 11:14] VITALS: BP 106/76
--- NOTE | 2024-07-23 11:36 | W.PN.HOSP.TC ---
Addendum entered and electronically signed by Jordin Galan MD 07/23/24 12:06:
#subclinical hypothyroidism
repeat TSH in 3-4 weeks
no indication for Synthroid
Original Note:
Today's Communication/Plan
-
Echo
cont steroids, Abx - patient improving
wean off O2
Assessment / Plan
Assessment / Plan
83yo F with PMHX of HFpEF, Afib on Eliquis, GERD, presbycusis came with worsening respiratory symptoms, hypoxia and cough. was admitted to
A/P:
#Acute hypoxic insufficiency 2/2 Bronchitis r/o pneumonia
previosuly COVID-19 and influenza neg
Check legionella and S.pneumonia urinary Ag, sputum Cx
Started on Azatreonam/Azithromycin
Bronchodilators and steroids
Mucolythics
Pulm consult: bronchodilators, steroids and cont Abx.
DDimer undetectable with wells score 0
#Elevated troponin
#A.flutter persisyent
#Chronic HFpEF
ASA, heparin drip (later switched back to Elqiuis) EKG, telemetry
proBNP 800 - lower then prior, no concern for overt CHF
with 3:1 block - hold off rate control as per cardiology
Overnight EKG with computer read of STEMI reviewed with cardio, at that time deemed not to be ACS
Serial trop elevated - s/p cardiac cath on 07/23/24 - no obstructive disease, however area of hypokinesis of cardiac wall: myocarditis, Takotsubo - nursery supervisor to follow
#Acute on chronic hyponatremia
s/p hypertonic saline
SIADH component
Nephrology consult: cont diuretics, appropriately improving, 9meq per 48h
serial BMP
#Hypomagnesemia
replete
follow BMP with PCP
#Cognitive impairment, possible unspecified dementia
with PMHx of alcohol abuse
poor historian
#Essential HTN
#GERD
cont home meds
DVT ppx on Elqiuis
DNR/DNI
I have spent at least 38min reviewing chart, test results, communication with patient, family and providing direct patient care
Anticipated Discharge: > 48 hours
Subjective/Interval History
-
Date of Service: July 23, 2024
Objective Data
-
Labs:
Laboratory Results
07/23/24
06:07
WBC 7.3
Hgb 13.9
Hct 41.6
Plt Count 348
Sodium 129 L
Potassium 4.2
Chloride 85 L
Carbon Dioxide 34 H
BUN 34 H
Creatinine 1.1 H
Glucose 149 H
Calcium 9.0
Total Bilirubin 0.4
AST 19
ALT 24
Alkaline Phosphatase 62
Vital Signs:
Vital Signs
Temp Pulse Resp BP Pulse Ox
97.8 F 72 18 106/76 98
07/23/24 11:14 07/23/24 11:14 07/23/24 11:14 07/23/24 11:14 07/23/24 11:14
I&O
07/22/24 07/23/24 07/24/24
06:59 06:59 06:59
Intake Total 360 / 360
Balance 360 / 360
Review of Systems
-
History Source: Patient
All other systems: Reviewed and negative
Physical Exam
-
General: No Apparent Distress
HEENT: Normocephalic
Respiratory: Clear to Auscultation
GI: Soft, Nontender and Nondistended
Skin: Warm
Neuro: Awake, Alert, Oriented and AO x 3
[2024-07-23] MEDS: DUONEB INH (12:16)
[2024-07-23 15:16] VITALS: BP 117/70
[2024-07-23] MEDS: TYLENOL 650 MG PO (19:03)
[2024-07-23 19:18] VITALS: BP 118/63
[2024-07-23] MEDS: MELATONIN 5 MG PO (22:06)
[2024-07-23 23:33] VITALS: BP 122/69
[2024-07-24 03:37] VITALS: BP 132/66
[2024-07-24] MEDS: AZACTAM 2000 MG IV ×3 (05:04→21:13)
[2024-07-24] MEDS: STERILE WATER FOR INJECTION 10 ML IV ×3 (05:04→21:14)
[2024-07-24] MEDS: SOLU-MEDROL PF 40 MG IV ×2 (05:04→17:18)
[2024-07-24 05:06] VITALS: BMI 22.0
[2024-07-24] MEDS: PULMICORT 0.5 MG INH ×2 (07:26→18:13)
[2024-07-24] MEDS: SODIUM CHLORIDE 3% FOR INHALATION 1 VIAL INH (07:26)
[2024-07-24] MEDS: DUONEB 3 ML INH ×4 (07:26→18:13)
[2024-07-24 07:30] VITALS: BP 129/65
[2024-07-24 08:54] LABS: % Immature Granulocytes 0.7 % (0-0.5); % Lymphocytes 4.3 % (20.5-51.1); % Monocytes 5.2 % (1.7-9.3); % Neutrophils 89.8 % (42.2-75.2); Absolute Immature Granulocytes 0.1 10^3/uL (0-0.05); Absolute Lymphocytes 0.4 10^3/uL (1.2-3.4); Absolute Monocytes 0.4 10^3/uL (0.1-0.6); Absolute Neutrophils 7.4 10^3/uL (1.4-6.5); Hematocrit 40.3 % (37.0-47.0); Hemoglobin 13.4 g/dL (12.0-16.0); Mean Corp Hgb Conc. 33.3 g/dL (33.0-37.0); Mean Corpuscular Hgb 28.6 pg (27.0-31.0); Mean Corpuscular Volume 86.1 fL (81.0-99.0); Mean Platelet Volume 8.2 fL (7.4-10.4); Nucleated Red Blood Cells % 0 %; Platelet Count 364 10^3/uL (130-400); Red Blood Cell Count 4.68 10^6/uL (4.20-5.40); Red Cell Dist. Width 19.9 % (11.5-14.5); White Blood Cell Count 8.3 10^3/uL (4.8-10.8)
[2024-07-24] MEDS: TUMS EX (EXTRA STRENGTH) CHEWABLE TABLET 300 MG PO (09:33)
[2024-07-24] MEDS: ELIQUIS 2.5 MG PO ×2 (09:33→21:13)
[2024-07-24] MEDS: EDECRIN 50 MG PO (09:33)
[2024-07-24] MEDS: LOW STRENGTH ASPIRIN 81 MG PO (09:33)
[2024-07-24] MEDS: PROTONIX 40 MG PO (09:34)
[2024-07-24] MEDS: PEPCID 20 MG PO (09:34)
[2024-07-24] MEDS: ZITHROMAX 500 MG PO (09:34)
[2024-07-24 09:35] LABS: Blood Urea Nitrogen 44 mg/dl (7-17); Calcium 8.9 mg/dl (8.4-10.2); Carbon Dioxide 37 mmol/L (22-30); Chloride 90 mmol/L (98-107); Estimated Creatinine Clearance 30 ml/min; Glucose 130 mg/dl (70-99); Potassium 4.3 mmol/L (3.5-5.1); Sodium 134 mmol/L (135-145); eGFR 55.21
[2024-07-24] MEDS: ANESTHETIC LOZENGE 1 LOZENGE PO (10:04)
[2024-07-24 11:34] VITALS: BP 128/77
--- NOTE | 2024-07-24 11:51 | W.PN.NEPH.PH ---
Today's Communication / Plan
-
Continue diuretics
Assessment/Plan
-
IMP:
Acute hypoxic insufficiency 2/2 Bronchitis
Elevated troponin with chest pain, s/p [facility] 07/22-no occlusive disease but RWMA
A.flutter persistent
Chronic HFpEF
Acute on chronic hyponatremia
Hypomagnesemia
Cognitive impairment, possible unspecified dementia
Essential HTN
GERD
Plan:
A/w SOB after recent d/c fro bronchitis
Hyponatremia-u osmo 394, U na high with diuresis
suspect SIADH from bronchitis
continue steroids
cotn ethacrynic acid, hold spironolactone
LVEDP only 14( top Normal)
Sodium improved to 134 with Samsca
Continue fluid management
-
-
Date of Service: July 24, 2024
CC / HPI / ROS
-
Chief Complaint:
Shortness of breath
History of Present Illness:
Presents with CHF/bronchitis developed hyponatremia
Review of Systems:
Mild shortness of breath remains on oxygen
Labs
-
Labs:
WBC 8.3 10^3/uL (4.8-10.8) 07/24/24 07:36
RBC 4.68 10^6/uL (4.20-5.40) 07/24/24 07:36
Hgb 13.4 g/dL (12.0-16.0) 07/24/24 07:36
Hct 40.3 % (37.0-47.0) 07/24/24 07:36
Plt Count 364 10^3/uL (130-400) 07/24/24 07:36
Sodium 134 mmol/L (135-145) L 07/24/24 07:36
Potassium 4.3 mmol/L (3.5-5.1) 07/24/24 07:36
Chloride 90 mmol/L (98-107) L 07/24/24 07:36
Carbon Dioxide 37 mmol/L (22-30) H 07/24/24 07:36
BUN 44 mg/dl (7-17) H 07/24/24 07:36
Creatinine 1.0 mg/dL (0.6-1.0) 07/24/24 07:36
eGFR 55.21 07/24/24 07:36
Glucose 130 mg/dl (70-99) H 07/24/24 07:36
Calcium 8.9 mg/dl (8.4-10.2) 07/24/24 07:36
Phosphorus 3.7 mg/dl (2.5-4.5) 07/22/24 03:40
Pqe-Q-Ttmiekowwof Pept 900 pg/ml 07/21/24 15:30
Albumin 3.8 g/dl (3.5-5.0) 07/23/24 06:07
Physical Exam
-
Vital Signs:
Vital Signs
Temp Pulse Resp BP Pulse Ox
98.1 F 71 20 128/77 95
07/24/24 11:34 07/24/24 11:34 07/24/24 11:34 07/24/24 11:34 07/24/24 11:34
Respiratory:: Bilateral: Rhonchi
Lung Excursion:: Normal
Abdomen:: Soft
Bowel Sounds:: Normal
Extremity Edema:: +1: Bilateral:
--- NOTE | 2024-07-24 12:52 | W.PN.HOSP.TC ---
Today's Communication/Plan
-
cont same IV steroids for one more day
Tessalon/Mucinex
Wean off O2
Assessment / Plan
Assessment / Plan
83yo F with PMHX of HFpEF, Afib on Eliquis, GERD, presbycusis came with worsening respiratory symptoms, hypoxia and cough. was admitted to
A/P:
#Acute hypoxic insufficiency 2/2 Bronchitis r/o pneumonia
previosuly COVID-19 and influenza neg
Check legionella and S.pneumonia urinary Ag, sputum Cx
Started on Azatreonam/Azithromycin
Bronchodilators and steroids
Mucolythics
Pulm consult: bronchodilators, steroids and cont Abx.
DDimer undetectable with wells score 0
#Elevated troponin
#A.flutter persisyent
#Chronic HFpEF
ASA, heparin drip (later switched back to Elqiuis) EKG, telemetry
proBNP 800 - lower then prior, no concern for overt CHF
with 3:1 block - hold off rate control as per cardiology
Overnight EKG with computer read of STEMI reviewed with cardio, at that time deemed not to be ACS
Serial trop elevated - s/p cardiac cath on 07/23/24 - no obstructive disease, however area of hypokinesis of cardiac wall: myocarditis, Takotsubo - general farm hand to follow
#Acute on chronic hyponatremia
s/p hypertonic saline
SIADH component
Nephrology consult: cont diuretics, appropriately improving, 9meq per 48h
serial BMP
#Hypomagnesemia
replete
follow BMP with PCP
#Cognitive impairment, possible unspecified dementia
with PMHx of alcohol abuse
poor historian
#Essential HTN
#GERD
cont home meds
DVT ppx on Elqiuis
DNR/DNI
I have spent at least 38min reviewing chart, test results, communication with patient, family and providing direct patient care
Anticipated Discharge: > 48 hours
Subjective/Interval History
-
Date of Service: July 24, 2024
Objective Data
-
Labs:
Laboratory Results
07/24/24
07:36
WBC 8.3
Hgb 13.4
Hct 40.3
Plt Count 364
Sodium 134 L
Potassium 4.3
Chloride 90 L
Carbon Dioxide 37 H
BUN 44 H
Creatinine 1.0
Glucose 130 H
Calcium 8.9
Vital Signs:
Vital Signs
Temp Pulse Resp BP Pulse Ox
98.1 F 71 20 128/77 95
07/24/24 11:34 07/24/24 11:34 07/24/24 11:34 07/24/24 11:34 07/24/24 11:34
I&O
07/23/24 07/24/24 07/25/24
06:59 06:59 06:59
Intake Total 360 / 360 720 / 720
Balance 360 / 360 720 / 720
Review of Systems
-
History Source: Patient
All other systems: Reviewed and negative
Constitutional: Reports Fatigue
Physical Exam
-
General: Comfortable
HEENT: Normocephalic
Respiratory: Wheezes and Rales
GI: Soft, Nontender and Nondistended
Musculoskeletal: No Clubbing, No Cyanosis and No Edema
Neuro: Awake, Alert, Oriented and AO x 3
Psych: Calm
[2024-07-24] MEDS: MUCINEX 600 MG PO ×2 (13:15→21:13)
--- NOTE | 2024-07-24 13:50 | W.PN.PUL3 ---
Today's Communication / Plan
-
Continue steroids, antibiotics
Continue airway clearance
PT/OT
Assessment
-
83-year-old female with history of atrial fibrillation on anticoagulation, history of heart failure, presents with recent bronchitic symptoms status post treatment with doxycycline without improvement, now found to be hypoxic requiring 3 L. Chest
x-ray suggested bibasilar infiltrates per my review
Acute hypoxic respiratory insufficiency
Requiring 3 L - on room air as of 07/24/2024
Recent admission for bronchitis, treated with doxycycline
Progressive symptoms
Bilateral patchy infiltrate per chest x-ray
My review
Leukocytosis
Hyponatremia
Elevated troponin
Conditions present prior to admission
Hypertension
Atrial fibrillation/flutter on Eliquis and flecainide
GERD
History of bowel resection for bowel obstruction 2004
DNR
Plan/recommendations
At this time, patient appears to be comfortable.
Symptoms improved, chest exam improved
Echocardiogram 06/26/2024 normal biventricular function, PA pressure 38
Moving forward
Suspect that she has significant upper airway bronchitis, poor airway clearance, possibly in the setting of a viral bronchitis versus reactive airway disease episode
Abdominal imaging from 2023 reveals no significant basilar interstitial disease
Unclear whether aspiration as a cause, patient denies any significant symptoms
The patient has minimal smoking history
Continue with airway clearance
Continue DuoNebs 4 times a day, budesonide twice a day
Continue IV steroids for now, no change
Continue 3% saline nebulizer once a day
Continue Acapella
Sputum culture pending
Continue antibiotics, currently on azithromycin/aztreonam
GERD therapy: Remains on Pepcid
DVT prophylaxis: Eliquis
Reviewed with patient
Will follow
Total time spent today was 37 minutes for this encounter. Time includes reviewing laboratory test/imaging results, reviewing pertinent medical records, obtaining and reviewing medical history, performing an appropriate exam, ordering medications,
tests and procedures. Time also includes documentation of this encounter, coordinating patient care and communicating with other healthcare professionals. Total time does not include separately billed tests performed on this date of service.
Patient seen and evaluated on 07/24/2024
Subjective Data
-
Date of Service:
Date of Service: July 24, 2024
Chief Complaint: Pulmonary Follow Up
Subjective:
Patient seen today at bedside. Shortness of breath is improving. Still feels tight in her upper chest/neck. Currently denies chest pain, CHAMBERS, fevers or chills.
Review of Systems
General: Other (Negative unless mentioned above)
Objective Data
Data Reviewed
Vital Signs / I&O / Oxygen:
Vital Signs
Temp Pulse Resp BP Pulse Ox
97.7 F 70 18 129/65 93
07/24/24 07:30 07/24/24 09:33 07/24/24 07:30 07/24/24 09:33 07/24/24 09:30
Intake and Output
07/23/24 07/24/24 07/25/24
06:59 06:59 06:59
Intake Total 360 / 360 720 / 720
Balance 360 / 360 720 / 720
SaO2 93
Nasal Cannula flow liters per 2
minute
Physical Exam
General: Respiratory Distress (n) and Comfortable
HEENT: Normocephalic and Anicteric
Cardiovascular: S1-S2, Murmur (n), Rub (n) and Peripheral Edema (Possible lower extremity pitting edema bilaterally)
Respiratory: Wheeze (n), Rhonchi (n), Non-Labored Respirations and Other (Coarse breath sounds heard bilaterally)
GI: Soft, Non Distended and Non Tender
Neurology: Awake, Alert and Tremors (n)
Skin: Warm, Dry, Cyanosis (n), Jaundice (n) and Rash (n)
Labs/Micro/Reports
Lab Data
05/31/25 07:36
07/24/24 07:36
Microbiology
07/21/24 20:24 Nose MRSA Screen - Final
No Methicillin Resistant Staphylococcus aureus isolated.
07/22/24 07:31 Urine Legionella Urinary Antigen - Final
Negative for Legionella pneumophila Serogroup 1 antigen.
A negative result does not rule out the possiblity of
Legionella infection due to other serogroups or species of
Legionella. Clinical correlation is recommended.
07/22/24 07:31 Urine Streptococcus pneumoniae Antigen (M - Final
Negative for Streptococcus pneumoniae antigen.
A negative result does not exclude infection with
Streptococcus pneumoniae. Clinical correlation is
recommended.
07/21/24 20:25 Sputum Respiratory Culture - Final
07/21/24 20:25 Sputum Gram Stain - Final
07/21/24 15:30 Nasal Swab Influenza Types A & B (YENI) - Final
Negative for Influenza A & B, NAAT
Negative results must be combined with clinical observations
and patient history.
Nucleic Acid Amplification test (NAAT)performed on the
[employer] platform.
[2024-07-24 15:38] VITALS: BP 131/69
[2024-07-24 19:13] VITALS: BP 125/62
[2024-07-24 23:07] VITALS: BP 126/64
[2024-07-24] MEDS: MELATONIN 5 MG PO (23:22)
[2024-07-25] VITALS (7 sets, daily range): BP systolic 123–140; BP diastolic 63–84; PULSE 68; O2SAT 96; BMI 21.8
[2024-07-25] MEDS: ANESTHETIC LOZENGE 1 LOZENGE PO ×2 (00:12→23:41)
[2024-07-25] MEDS: TYLENOL 650 MG PO (02:25)
[2024-07-25] MEDS: STERILE WATER FOR INJECTION 10 ML IV ×3 (05:41→21:43)
[2024-07-25] MEDS: AZACTAM 2000 MG IV ×3 (05:41→21:42)
[2024-07-25] MEDS: SOLU-MEDROL PF 40 MG IV (05:53)
[2024-07-25] MEDS: PULMICORT 0.5 MG INH ×2 (07:17→19:36)
[2024-07-25] MEDS: DUONEB 3 ML INH (07:17)
[2024-07-25] MEDS: SODIUM CHLORIDE 3% FOR INHALATION INH (07:40)
[2024-07-25] MEDS: TUMS EX (EXTRA STRENGTH) CHEWABLE TABLET 300 MG PO (09:03)
[2024-07-25] MEDS: EDECRIN 50 MG PO (09:03)
[2024-07-25] MEDS: PROTONIX 40 MG PO (09:03)
[2024-07-25] MEDS: ELIQUIS 2.5 MG PO ×2 (09:04→21:41)
[2024-07-25] MEDS: LOW STRENGTH ASPIRIN 81 MG PO (09:04)
[2024-07-25] MEDS: ZITHROMAX 500 MG PO (09:04)
[2024-07-25] MEDS: MUCINEX 600 MG PO ×2 (09:04→21:42)
[2024-07-25] MEDS: PEPCID 20 MG PO (09:04)
--- NOTE | 2024-07-25 11:59 | W.PN.HOSP.TC ---
Today's Communication/Plan
-
Off O2
switch to oral prednisone and monitor
PT/OT
discussed with daughter - agreed with STR plan
Assessment / Plan
Assessment / Plan
83yo F with PMHX of HFpEF, Afib on Eliquis, GERD, presbycusis came with worsening respiratory symptoms, hypoxia and cough. was admitted to
A/P:
#Acute hypoxic insufficiency 2/2 Bronchitis r/o pneumonia
previosuly COVID-19 and influenza neg
Check legionella and S.pneumonia urinary Ag, sputum Cx
Started on Azatreonam/Azithromycin
Bronchodilators and steroids
Mucolythics
Pulm consult: bronchodilators, steroids and cont Abx.
DDimer undetectable with wells score 0
#Elevated troponin
#A.flutter persisyent
#Chronic HFpEF
ASA, heparin drip (later switched back to Elqiuis) EKG, telemetry
proBNP 800 - lower then prior, no concern for overt CHF
with 3:1 block - hold off rate control as per cardiology
Overnight EKG with computer read of STEMI reviewed with cardio, at that time deemed not to be ACS
Serial trop elevated - s/p cardiac cath on 07/23/24 - no obstructive disease, however area of hypokinesis of cardiac wall: myocarditis, Takotsubo - chain tender to follow
#Acute on chronic hyponatremia
s/p hypertonic saline
SIADH component
Nephrology consult: cont diuretics, appropriately improving, 9meq per 48h
serial BMP
#Hypomagnesemia
replete
follow BMP with PCP
#Cognitive impairment, possible unspecified dementia
with PMHx of alcohol abuse
poor historian
#Essential HTN
#GERD
cont home meds
DVT ppx on Elqiuis
DNR/DNI
I have spent at least 38min reviewing chart, test results, communication with patient, family and providing direct patient care
Anticipated Discharge: Within 24 hours
Subjective/Interval History
-
Date of Service: July 25, 2024
Objective Data
-
Vital Signs:
Vital Signs
Temp Pulse Resp BP Pulse Ox
98 F 93 14 137/75 94
07/25/24 07:50 07/25/24 09:03 07/25/24 07:50 07/25/24 09:03 07/25/24 07:50
I&O
07/24/24 07/25/24 07/26/24
06:59 06:59 06:59
Intake Total 720 / 720 720 / 720
Balance 720 / 720 720 / 720
Review of Systems
-
History Source: Patient
All other systems: Reviewed and negative
Physical Exam
-
General: No Apparent Distress
HEENT: Normocephalic
Respiratory: Rales
GI: Soft, Nontender and Nondistended
Neuro: Awake, Alert, Oriented and AO x 3
Psych: Calm
--- NOTE | 2024-07-25 13:42 | W.PN.PUL3 ---
Today's Communication / Plan
-
Continue steroids, antibiotics
Switched to prednisone taper starting at 40 mg and reduce by 10 mg every fourth day until off
Continue mucolytics with 3%
DuoNebs and Budesonide BID
PT/OT
No additional recommendations at this time. Pulmonary service will now sign off. Please reconsult if there are any additional questions/concerns, or if patient's respiratory status deteriorates.
Assessment
-
83-year-old female with history of atrial fibrillation on anticoagulation, history of heart failure, presents with recent bronchitic symptoms status post treatment with doxycycline without improvement, now found to be hypoxic requiring 3 L. Chest
x-ray suggested bibasilar infiltrates per my review
Acute hypoxic respiratory insufficiency
Requiring 3 L - on room air as of 07/24/2024
Recent admission for bronchitis, treated with doxycycline
Progressive symptoms
Bilateral patchy infiltrate per chest x-ray
Leukocytosis � now resolved
Hyponatremia � improved
Elevated troponin
Conditions present prior to admission
Hypertension
Atrial fibrillation/flutter on Eliquis and flecainide
GERD
History of bowel resection for bowel obstruction 2004
DNR
Plan/recommendations
At this time, patient appears to be comfortable and has improved
Symptoms improved, chest exam improved
Echocardiogram 06/26/2024 normal biventricular function, PA pressure 38
Moving forward
Suspect that she has significant upper airway bronchitis, poor airway clearance, possibly in the setting of a viral bronchitis versus reactive airway disease episode
Abdominal imaging from 2023 reveals no significant basilar interstitial disease
Unclear whether aspiration as a cause, patient denies any significant symptoms
The patient has minimal smoking history
Continue with airway clearance
Continue DuoNebs + budesonide both twice a day
Wean down to prednisone 40 mg with taper as tolerated (recommend to start with 40 mg and reduce by 10 mg every fourth day until off)
Continue 3% saline nebulizer once a day
Continue Acapella
Mucolytics
Sputum culture shows NGTD
Continue antibiotics, currently on azithromycin/aztreonam; rec'd to complete a 5-7-day course of Abx assuming she continues to clinically improve and remains afebrile for 48 hours prior to stopping Abx
GERD therapy: Remains on Pepcid
DVT prophylaxis: Eliquis
Reviewed with patient
Patient is on room air, breathing comfortably. She also subjectively reports that she is breathing better. Stable for transition to prednisone taper.
No additional recommendations at this time. Pulmonary service will now sign off. Thank you for allowing us to be involved in the care of this patient. Please reconsult if there are any additional questions/concerns, or if patient's respiratory
status deteriorates.
Total time spent today was 27 minutes for this encounter. Time includes reviewing laboratory test/imaging results, reviewing pertinent medical records, obtaining and reviewing medical history, performing an appropriate exam, ordering medications,
tests and procedures. Time also includes documentation of this encounter, coordinating patient care and communicating with other healthcare professionals. Total time does not include separately billed tests performed on this date of service.
Subjective Data
-
Date of Service:
Date of Service: July 25, 2024
Chief Complaint: Pulmonary Follow Up
Subjective:
Patient seen earlier this afternoon (late note entry). Patient's shortness of breath is much improved. Currently on room air saturating 94%. Denies chest pain, CHAMBERS, nausea, fevers or chills. She is eager to go home.
Review of Systems
General: Other (Negative unless mentioned above)
Objective Data
Data Reviewed
Vital Signs / I&O / Oxygen:
Vital Signs
Temp Pulse Resp BP Pulse Ox
98 F 93 14 137/75 94
07/25/24 07:50 07/25/24 09:03 07/25/24 07:50 07/25/24 09:03 07/25/24 07:50
Intake and Output
07/24/24 07/25/24 07/26/24
06:59 06:59 06:59
Intake Total 720 / 720 720 / 720
Balance 720 / 720 720 / 720
SaO2 94
Nasal Cannula flow liters per 2
minute
Physical Exam
General: Respiratory Distress (n) and Comfortable
HEENT: Normocephalic and Anicteric
Cardiovascular: S1-S2, Murmur (n), Rub (n) and Peripheral Edema (negative)
Respiratory: Wheeze (n), Rhonchi (n), Non-Labored Respirations and Other (Coarse breath sounds heard bilaterally)
GI: Soft, Non Distended and Non Tender
Neurology: Awake, Alert and Tremors (n)
Skin: Warm, Dry, Cyanosis (n), Jaundice (n) and Rash (n)
Labs/Micro/Reports
Lab Data
07/24/24 07:36
07/24/24 07:36
Microbiology
07/21/24 20:24 Nose MRSA Screen - Final
No Methicillin Resistant Staphylococcus aureus isolated.
07/22/24 07:31 Urine Legionella Urinary Antigen - Final
Negative for Legionella pneumophila Serogroup 1 antigen.
A negative result does not rule out the possiblity of
Legionella infection due to other serogroups or species of
Legionella. Clinical correlation is recommended.
07/22/24 07:31 Urine Streptococcus pneumoniae Antigen (M - Final
Negative for Streptococcus pneumoniae antigen.
A negative result does not exclude infection with
Streptococcus pneumoniae. Clinical correlation is
recommended.
07/21/24 20:25 Sputum Respiratory Culture - Final
07/21/24 20:25 Sputum Gram Stain - Final
--- NOTE | 2024-07-25 16:10 | W.PN.NEPH.PH ---
Today's Communication / Plan
-
Continue diuretics
Assessment/Plan
-
IMP:
Acute hypoxic insufficiency 2/2 Bronchitis
Elevated troponin with chest pain, s/p [facility] 07/22-no occlusive disease but RWMA
A.flutter persistent
Chronic HFpEF
Acute on chronic hyponatremia
Hypomagnesemia
Cognitive impairment, possible unspecified dementia
Essential HTN
GERD
Plan:
A/w SOB after recent d/c fro bronchitis
Hyponatremia-u osmo 394, U na high with diuresis
suspect SIADH from bronchitis
continue steroids
cotn ethacrynic acid, hold spironolactone
LVEDP only 14( top Normal)
Sodium improved to 134 with Samsca
Continue fluid management
Clinically much better off oxygen
-
-
Date of Service: July 25, 2024
CC / HPI / ROS
-
Chief Complaint:
Shortness of breath
History of Present Illness:
Presents with CHF/bronchitis developed hyponatremia
Review of Systems:
Continue to have cough shortness of breath improved off oxygen
Labs
-
Labs:
WBC 8.3 10^3/uL (4.8-10.8) 07/24/24 07:36
RBC 4.68 10^6/uL (4.20-5.40) 07/24/24 07:36
Hgb 13.4 g/dL (12.0-16.0) 07/24/24 07:36
Hct 40.3 % (37.0-47.0) 07/24/24 07:36
Plt Count 364 10^3/uL (130-400) 07/24/24 07:36
Sodium 134 mmol/L (135-145) L 07/24/24 07:36
Potassium 4.3 mmol/L (3.5-5.1) 07/24/24 07:36
Chloride 90 mmol/L (98-107) L 07/24/24 07:36
Carbon Dioxide 37 mmol/L (22-30) H 07/24/24 07:36
BUN 44 mg/dl (7-17) H 07/24/24 07:36
Creatinine 1.0 mg/dL (0.6-1.0) 07/24/24 07:36
eGFR 55.21 07/24/24 07:36
Glucose 130 mg/dl (70-99) H 07/24/24 07:36
Calcium 8.9 mg/dl (8.4-10.2) 07/24/24 07:36
Phosphorus 3.7 mg/dl (2.5-4.5) 07/22/24 03:40
Amw-D-Kmyaogaazuq Pept 900 pg/ml 07/21/24 15:30
Albumin 3.8 g/dl (3.5-5.0) 07/23/24 06:07
Physical Exam
-
Vital Signs:
Vital Signs
Temp Pulse Resp BP Pulse Ox
97.9 F 76 14 123/63 95
07/25/24 15:10 07/25/24 15:10 07/25/24 15:10 07/25/24 15:10 07/25/24 15:10
Respiratory:: Bilateral: Rhonchi
Lung Excursion:: Normal
Abdomen:: Soft
Bowel Sounds:: Normal
Extremity Edema:: +1: Bilateral:
[2024-07-25] MEDS: MELATONIN 5 MG PO (23:41)
[2024-07-26] VITALS (7 sets, daily range): BP systolic 125–144; BP diastolic 70–73; PULSE 78; BMI 22.1
[2024-07-26] MEDS: STERILE WATER FOR INJECTION 10 ML IV ×3 (05:51→22:07)
[2024-07-26] MEDS: AZACTAM 2000 MG IV ×3 (05:51→22:08)
[2024-07-26] MEDS: DUONEB 3 ML INH ×2 (07:23→20:11)
[2024-07-26] MEDS: PULMICORT 0.5 MG INH ×2 (07:23→20:11)
[2024-07-26] MEDS: SODIUM CHLORIDE 3% FOR INHALATION 1 VIAL INH (07:23)
[2024-07-26] MEDS: TUMS EX (EXTRA STRENGTH) CHEWABLE TABLET 300 MG PO (08:23)
[2024-07-26] MEDS: PROTONIX 40 MG PO (08:23)
[2024-07-26] MEDS: EDECRIN 50 MG PO (08:23)
[2024-07-26] MEDS: DELTASONE 40 MG PO (08:24)
[2024-07-26] MEDS: MUCINEX 600 MG PO ×2 (08:24→20:19)
[2024-07-26] MEDS: ZITHROMAX 500 MG PO (08:24)
[2024-07-26] MEDS: PEPCID 20 MG PO (08:25)
[2024-07-26] MEDS: LOW STRENGTH ASPIRIN 81 MG PO (08:25)
[2024-07-26] MEDS: ELIQUIS 2.5 MG PO ×2 (08:25→20:18)
--- NOTE | 2024-07-26 15:12 | W.PN.NEPH.PH ---
Today's Communication / Plan
-
ok for d/c
Assessment/Plan
-
IMP:
Acute hypoxic insufficiency 2/2 Bronchitis
Elevated troponin with chest pain, s/p [facility] 07/22-no occlusive disease but RWMA
A.flutter persistent
Chronic HFpEF
Acute on chronic hyponatremia
Hypomagnesemia
Cognitive impairment, possible unspecified dementia
Essential HTN
GERD
Plan:
A/w SOB after recent d/c fro bronchitis
Hyponatremia-u osmo 394, U na high with diuresis
suspect SIADH from bronchitis
continue steroids
cotn ethacrynic acid, hold spironolactone
LVEDP only 14( top Normal)
Sodium improved to 134 with Samsca, no labs today
Continue fluid management
Clinically much better off oxygen
d/c plan
BMP in 3days, f/u with pcp
-
-
Date of Service: July 26, 2024
CC / HPI / ROS
-
Chief Complaint:
Shortness of breath
History of Present Illness:
Presents with CHF/bronchitis developed hyponatremia
no labs today
last sodium 07/25 was 134
Bp stable, remains off O2
Review of Systems:
Continue to have cough-improving
shortness of breath improved off oxygen
no fever
Labs
-
Labs:
WBC 8.3 10^3/uL (4.8-10.8) 07/24/24 07:36
RBC 4.68 10^6/uL (4.20-5.40) 07/24/24 07:36
Hgb 13.4 g/dL (12.0-16.0) 07/24/24 07:36
Hct 40.3 % (37.0-47.0) 07/24/24 07:36
Plt Count 364 10^3/uL (130-400) 07/24/24 07:36
Sodium 134 mmol/L (135-145) L 07/24/24 07:36
Potassium 4.3 mmol/L (3.5-5.1) 07/24/24 07:36
Chloride 90 mmol/L (98-107) L 07/24/24 07:36
Carbon Dioxide 37 mmol/L (22-30) H 07/24/24 07:36
BUN 44 mg/dl (7-17) H 07/24/24 07:36
Creatinine 1.0 mg/dL (0.6-1.0) 07/24/24 07:36
eGFR 55.21 07/24/24 07:36
Glucose 130 mg/dl (70-99) H 07/24/24 07:36
Calcium 8.9 mg/dl (8.4-10.2) 07/24/24 07:36
Phosphorus 3.7 mg/dl (2.5-4.5) 07/22/24 03:40
Yvi-J-Rzcuvgforhi Pept 900 pg/ml 07/21/24 15:30
Albumin 3.8 g/dl (3.5-5.0) 07/23/24 06:07
Physical Exam
-
Vital Signs:
Vital Signs
Temp Pulse Resp BP Pulse Ox
98.3 F 92 18 125/71 92
07/26/24 11:24 07/26/24 11:24 07/26/24 11:24 07/26/24 11:24 07/26/24 11:24
Cardiovascular:: Regular rate and rhythm
Respiratory:: Bilateral: Rhonchi
Lung Excursion:: Normal
Abdomen:: Nontender and Soft
Bowel Sounds:: Normal
Extremity Edema:: +1: Bilateral:
Oreilly Catheter: No
--- NOTE | 2024-07-26 15:44 | CM ---
Spoke with Mita dil she requested [facility] ,[facility] and [facility].
PT Ot indicate SNF.
Spoke with Mita and she picked [facility] .
Mita said she will transport her at 5 PM .
IMM reviewed and copy left for Mita as requested.
[facility]
PLAN To [facility] tomorrow.
--- NOTE | 2024-07-26 16:04 | W.PN.HOSP.TC ---
Today's Communication/Plan
-
Assessment / Plan
Assessment / Plan
General: No Apparent Distress, Comfortable and Conversant
HEENT: NormoCephalic, Moist mucous membranes, Atraumatic
Respiratory: Clear and Non Labored Respirations
Cardiac: S1/S2 and Regular Rhythm; No Rub or Gallop
GI: Soft, Non Tender, Non Distended and Normal Bowel Sounds
Musculoskeletal: No Edema, no deformity
: NO Oreilly
Neuro: Awake, Alert, Nonfocal/grossly intact
Psych: Calm and cooperative
83yo F with PMHX of HFpEF, Afib on Eliquis, GERD, presbycusis came with worsening respiratory symptoms, hypoxia and cough. was admitted to
A/P:
#Acute hypoxic insufficiency 2/2 Bronchitis
-previosuly COVID-19 and influenza neg
-Started on Aztreonam/Azithromycin, azithromycin discontinued considering negative Legionella and strep pneumo urinary antigens
-Continue bronchodilators and steroids, mucolytic's
-Appreciate pulmonology guidance
- Medically stable for planned discharge to SNF tomorrow 07/27
#Elevated troponin
#A.flutter persistent
#Chronic HFpEF
-ASA, heparin drip (later switched back to Eliquis), telemetry
-proBNP 800 - lower then prior, no concern for overt CHF
-EKG with 3:1 block - hold off rate control as per cardiology
-s/p cardiac cath on 07/23/24 - no obstructive disease, however area of hypokinesis of cardiac wall: myocarditis, Takotsubo - strategic alliances manager to follow
#Acute on chronic hyponatremia
-s/p hypertonic saline
-SIADH component
-Nephrology following, continue ethacrynic acid and hold spironolactone, received Samsca
-Repeat BMP in 3 days, PCP follow-up
#Hypomagnesemia
repleted
follow BMP with PCP
#Cognitive impairment, possible unspecified dementia
with PMHx of alcohol abuse
poor historian
#Essential HTN
#GERD
cont home meds
DVT ppx on Eliquis
DNR/DNI
Anticipated Discharge: Within 24 hours
Subjective/Interval History
-
Date of Service: July 26, 2024
Patient was seen and examined at bedside this morning. Feels well, enjoying multiple books during this hospitalization. Awaiting SNF placement.
Objective Data
-
Vital Signs:
Vital Signs
Temp Pulse Resp BP Pulse Ox
98.2 F 95 16 133/70 93
07/26/24 15:28 07/26/24 15:28 07/26/24 15:28 07/26/24 15:28 07/26/24 15:28
I&O
07/25/24 07/26/24 07/27/24
06:59 06:59 06:59
Intake Total 720 / 720 880 / 880
Balance 720 / 720 880 / 880
Review of Systems
-
History Source: Patient
All other systems: Reviewed and negative
Physical Exam
-
General: No Apparent Distress
[2024-07-27 03:37] VITALS: BP 130/69
[2024-07-27] MEDS: STERILE WATER FOR INJECTION 10 ML IV (05:45)
[2024-07-27] MEDS: AZACTAM 2000 MG IV (05:46)
[2024-07-27 06:00] VITALS: BMI 22.2
[2024-07-27] MEDS: SODIUM CHLORIDE 3% FOR INHALATION 1 VIAL INH (07:26)
[2024-07-27] MEDS: PULMICORT 0.5 MG INH (07:26)
[2024-07-27] MEDS: DUONEB 3 ML INH (07:26)
[2024-07-27 07:30] VITALS: BP 129/71
[2024-07-27] MEDS: LOW STRENGTH ASPIRIN 81 MG PO (08:28)
[2024-07-27] MEDS: TUMS EX (EXTRA STRENGTH) CHEWABLE TABLET 300 MG PO (08:28)
[2024-07-27] MEDS: EDECRIN 50 MG PO (08:28)
[2024-07-27] MEDS: PEPCID 20 MG PO (08:28)
[2024-07-27] MEDS: ELIQUIS 2.5 MG PO (08:28)
[2024-07-27] MEDS: MUCINEX 600 MG PO (08:28)
[2024-07-27] MEDS: DELTASONE 40 MG PO (08:28)
[2024-07-27] MEDS: PROTONIX 40 MG PO (08:28)
--- NOTE | 2024-07-27 09:45 | CM ---
Spoke with Mita lloyd she agrees with [facility].
Mita said she will transport her at 5 PM .
IMM reviewed with Mita all questions answered..
[facility]
report [phone]
fax [phone]
PLAN To [place] today
[2024-07-27 11:17] LABS: Blood Urea Nitrogen 46 mg/dl (7-17); Calcium 9.3 mg/dl (8.4-10.2); Carbon Dioxide 31 mmol/L (22-30); Chloride 88 mmol/L (98-107); Estimated Creatinine Clearance 37 ml/min; Glucose 164 mg/dl (70-99); Sodium 129 mmol/L (135-145); eGFR > 60.00
--- NOTE | 2024-07-27 11:23 | W.DCSUMMARY ---
Discharge Summary
Discharge Data
Date of Admission: 07/21/24
Date of Discharge: 07/27/24
Total time spent discharging patient (in min): 40
-
Pending Results: No
Hospital Course
Ms. Dominguez is an 83-year-old female with medical history of HFpEF, A-fib (on Eliquis), GERD, and presbycusis who presented with cough and hypoxia. She had been discharged home on doxycycline and Tessalon Perles 3 days prior to this admission after
treatment for acute bronchitis. When she returned she was hypoxic requiring 4 L of supplemental oxygen via nasal cannula. She had a mild leukocytosis. Her chest x-ray showed possible bibasilar infiltrates without edema or effusion. Her EKG did
show variable flutter with 3:1 and 2:1 conduction. Cardiology recommended holding rate controlling medications. She developed rapid heart rate, chest tightness, and left shoulder pain. Her troponins began rising. She was started on
anticoagulation with IV heparin drip and brought to the [facility] for coronary angiography on 07/22. Coronary angiography and left ventriculography showed no obstructive disease but did reveal Takotsubo's cardiomyopathy. She was transitioned back to
anticoagulation with her home Eliquis.
For her cough she was evaluated by pulmonology, who recommended treatment with mucolytics and nebulizers. She was also treated with a 5-day course of antibiotics. She has been started on an oral steroid taper. She remained afebrile and
hemodynamically stable. She was ultimately able to be titrated off of supplemental oxygen and has since been breathing comfortably and saturating appropriately on room air.
She did have acute on chronic hyponatremia with a serum sodium dipping as low as 120. She was evaluated by nephrology and given hypertonic saline and a dose of Samsca. She was continued on her home ethacrynic acid but spironolactone was held. Her
serum sodium levels have improved and stabilized. She will need outpatient follow-up with her PCP for repeat lab work to monitor her serum sodium levels.
At time of hospital discharge she was medically stable for continued therapy at retirement facility.
General: No Apparent Distress, Comfortable and Conversant
HEENT: NormoCephalic, Moist mucous membranes, Atraumatic
Respiratory: Clear and Non Labored Respirations
Cardiac: S1/S2 and Regular Rhythm; No Rub or Gallop
GI: Soft, Non Tender, Non Distended and Normal Bowel Sounds
Musculoskeletal: No Edema, no deformity
: NO [place]
Neuro: Awake, Alert, Nonfocal/grossly intact
Psych: Calm and cooperative
Discharge Plan
-
Patient Disposition: Shelter/SNF
Discharge Diagnosis/Procedures: Acute hypoxia, bronchitis, Takotsubo's cardiomyopathy
Driving Restrictions: No driving for 24 hours
Blood Work: BMP in 3 days to monitor serum sodium levels
Activity Restrictions/Additional Instructions:
Ms. Dominguez is an 83-year-old female with medical history of HFpEF, A-fib (on Eliquis), GERD, and presbycusis who presented with cough and hypoxia. She had been discharged home on doxycycline and Tessalon Perles 3 days prior to this admission after
treatment for acute bronchitis. When she returned she was hypoxic requiring 4 L of supplemental oxygen via nasal cannula. She had a mild leukocytosis. Her chest x-ray showed possible bibasilar infiltrates without edema or effusion. Her EKG did
show variable flutter with 3:1 and 2:1 conduction. Cardiology recommended holding rate controlling medications. She developed rapid heart rate, chest tightness, and left shoulder pain. Her troponins began rising. She was started on
anticoagulation with IV heparin drip and brought to the [facility] for coronary angiography on 07/22. Coronary angiography and left ventriculography showed no obstructive disease but did reveal Takotsubo's cardiomyopathy. She was transitioned back to
anticoagulation with her home Eliquis.
For her cough she was evaluated by pulmonology, who recommended treatment with mucolytics and nebulizers. She was also treated with a 5-day course of antibiotics. She has been started on an oral steroid taper. She remained afebrile and
hemodynamically stable. She was ultimately able to be titrated off of supplemental oxygen and has since been breathing comfortably and saturating appropriately on room air.
She did have acute on chronic hyponatremia with a serum sodium dipping as low as 120. She was evaluated by nephrology and given hypertonic saline and a dose of Samsca. She was continued on her home ethacrynic acid but spironolactone was held. Her
serum sodium levels have improved and stabilized. She will need outpatient follow-up with her PCP for repeat lab work to monitor her serum sodium levels.
At time of hospital discharge she was medically stable for continued therapy at retirement facility.
Stand Alone Forms: DC Instructions- Cath/EP Lab
Referrals:
Jose Bello MD [Active, Pulmonary Medicine]
Referral Note: [facility] visit in 2 week post dc
Ace in Oct
Kt Lee MD [Family Provider, Family Practice]
Prescriptions:
New
prednisone 10 mg tablet
See Taper PO DIRECTED Qty: 300 0RF
Taper: Prednisone DC Starting at 40 mg daily
40 mg Daily for 3 Days and 0 Hour
30 mg Daily for 3 Days and 0 Hour
20 mg Daily for 3 Days and 0 Hour
10 mg Daily for 3 Days and 0 Hour
benzonatate 100 mg Capsule
100 mg PO TIDPRN PRN (Reason: cough) 5 Days Qty: 14 0RF
aspirin 81 mg Tablet,Chewable
81 mg PO DAILY 30 Days Qty: 30 0RF
guaifenesin 600 mg Tablet Extended Release 12hr
600 mg PO Q12 5 Days Qty: 10 0RF
Continued
Tums 300 mg (750 mg) Tablet,Chewable
300 mg PO DAILY
omeprazole 40 mg Capsule,Delayed Release(Dr/Ec)
40 mg PO DAILY
acetaminophen [Tylenol Extra Strength] 500 mg Tablet
500 mg PO Q6HPRN PRN (Reason: mild pain)
WesTab Max 2.5-25-2 mg Tablet
1 tab PO DAILY 30 Days Qty: 30 0RF
Eliquis 2.5 mg Tablet
2.5 mg PO BID
ethacrynic acid 25 mg Tablet
50 mg PO DAILY Qty: 30 0RF
melatonin 5 mg Tablet
5 mg PO HS PRN (Reason: insomnia)
benzonatate 100 mg Capsule
200 mg PO TIDPRN PRN (Reason: cough) Qty: 9 0RF
Changed
famotidine 40 mg Tablet
20 mg PO DAILY Qty: 0 0RF
Kaopectate (bismuth subsalicy) 262 mg Tablet
524 mg PO DAILY PRN (Reason: Gastrointestinal Issue) Qty: 0 0RF
Discontinued
spironolactone 25 mg Tablet
25 mg PO DAILY 30 Days Qty: 30 0RF
doxycycline hyclate 100 mg Capsule
100 mg PO Q12 Qty: 12 0RF
Discharge Orders:
Discharge Patient (As Directed); Ordered 07/27/24
Ordered By: Wayne Kruger
Discharge Date and Time
Print Language: JORDANIAN
--- NOTE | 2024-07-27 11:55 | W.PN.NEPH.PH ---
Today's Communication / Plan
-
samsca
Assessment/Plan
-
IMP:
Acute hypoxic insufficiency 2/2 Bronchitis
Elevated troponin with chest pain, s/p [facility] 07/22-no occlusive disease but RWMA
A.flutter persistent
Chronic HFpEF
Acute on chronic hyponatremia
Hypomagnesemia
Cognitive impairment, possible unspecified dementia
Essential HTN
GERD
Plan:
samsca again today
continue edecrine though she should be fine with low dose lasix (she denies ever having an issue with a diuretic. she states her sulfa allergy was hives from a sulfa abx 50yrs ago
for dc
needs BMP in 1 week
-
-
Date of Service: July 27, 2024
CC / HPI / ROS
-
Chief Complaint:
Shortness of breath
History of Present Illness:
Presents with CHF/bronchitis developed hyponatremia
BP stable
Na down to 129
Review of Systems:
no CP/SOB
Labs
-
Labs:
WBC 8.3 10^3/uL (4.8-10.8) 07/24/24 07:36
RBC 4.68 10^6/uL (4.20-5.40) 07/24/24 07:36
Hgb 13.4 g/dL (12.0-16.0) 07/24/24 07:36
Hct 40.3 % (37.0-47.0) 07/24/24 07:36
Plt Count 364 10^3/uL (130-400) 07/24/24 07:36
Sodium 129 mmol/L (135-145) L 07/27/24 10:22
Potassium 4.0 mmol/L (3.5-5.1) 07/27/24 10:22
Chloride 88 mmol/L (98-107) L 07/27/24 10:22
Carbon Dioxide 31 mmol/L (22-30) H 07/27/24 10:22
BUN 46 mg/dl (7-17) H 07/27/24 10:22
Creatinine 0.8 mg/dL (0.6-1.0) 07/27/24 10:22
eGFR > 60.00 07/27/24 10:22
Glucose 164 mg/dl (70-99) H 07/27/24 10:22
Calcium 9.3 mg/dl (8.4-10.2) 07/27/24 10:22
Phosphorus 3.7 mg/dl (2.5-4.5) 07/22/24 03:40
Ztc-Y-Zltyzrlvfyc Pept 900 pg/ml 07/21/24 15:30
Albumin 3.8 g/dl (3.5-5.0) 07/23/24 06:07
Physical Exam
-
Vital Signs:
Vital Signs
Temp Pulse Resp BP Pulse Ox
97.5 F 72 16 129/71 96
07/27/24 07:30 07/27/24 08:28 07/27/24 07:33 07/27/24 08:28 07/27/24 10:29
Cardiovascular:: Regular rate and rhythm
Respiratory:: Bilateral: CTA
Lung Excursion:: Normal
Abdomen:: Nontender and Soft
Bowel Sounds:: Normal
Extremity Edema:: None: Bilateral:
[2024-07-27] MEDS: SAMSCA 7.5 MG PO (12:14)
[2024-07-27] MEDS: TYLENOL 650 MG PO (14:28)
[2024-07-27 15:17] VITALS: BP 101/56
== END 2024-07-27 17:08 | DRG 202 ==
LOC: 4 EAST ACU 21:01
PROVIDERS: Internal Medicine; Internal Medicine Cardiovascular Disease; ADMITTING PHYSICIAN Internal Medicine; ATTENDING PHYSICIAN Internal Medicine; CONSULT PHYSICIAN Internal Medicine; CONSULT PHYSICIAN Internal Medicine Cardiovascular Disease; CONSULT PHYSICIAN Internal Medicine Critical Care Medicine; EMERGENCY PHYSICIAN Student in an Organized Health Care Education/Training Program; FAMILY PHYSICIAN Family Medicine
PROC: 4A023N7 Measurement of Cardiac Sampling and Pressure, Left Heart, Percutaneous Approach (ICD-10-PCS; 2024-07-22)
PROC: B2151ZZ Fluoroscopy of Left Heart using Low Osmolar Contrast (ICD-10-PCS; 2024-07-22)
PROC: B2111ZZ Fluoroscopy of Multiple Coronary Arteries using Low Osmolar Contrast (ICD-10-PCS; 2024-07-22)
DX: J20.9 Acute bronchitis, unspecified (principal); E22.2 Syndrome of inappropriate secretion of antidiuretic hormone; I51.81 Takotsubo syndrome; E87.1 Hypo-osmolality and hyponatremia; I48.92 Unspecified atrial flutter; I50.32 Chronic diastolic (congestive) heart failure; I5A Non-ischemic myocardial injury (non-traumatic); Z11.52 Encounter for screening for COVID-19; I48.0 Paroxysmal atrial fibrillation; I11.0 Hypertensive heart disease with heart failure; Z66 Do not resuscitate; K21.9 Gastro-esophageal reflux disease without esophagitis; E03.9 Hypothyroidism, unspecified; E83.42 Hypomagnesemia; R09.02 Hypoxemia; R06.89 Other abnormalities of breathing
CPT/HCPCS: 71046; 80048; 80053; 83690; 83735; 83880; 83935; 84100; 84300; 84439; 84443; 84484; 85025; 85027; 85379; 85730; 87070; 87205; 87449; 87502; 87811; 87899; 93005; 93306; 93458; 94640; 97116; 97162; 97166; 97530; 99152; 99153; 99285; C1894; Q9967

== ENCOUNTER → 2024-07-30 09:32 | Outpatient (REF) | payer MEDICARE, SELFPAY ==
[2024-07-30 11:38] LABS: Hematocrit 33.6 % (37.0-47.0); Hemoglobin 10.8 g/dL (12.0-16.0); Mean Corp Hgb Conc. 32.1 g/dL (33.0-37.0); Mean Corpuscular Volume 90.3 fL (81.0-99.0); Mean Platelet Volume 8.3 fL (7.4-10.4); Platelet Count 475 10^3/uL (130-400); Red Blood Cell Count 3.72 10^6/uL (4.20-5.40); Red Cell Dist. Width 19.4 % (11.5-14.5); White Blood Cell Count 12.1 10^3/uL (4.8-10.8)
[2024-07-30 11:53] LABS: ALT (SGPT) 35 U/L (0-35); AST (SGOT) 24 U/L (14-36); Alkaline Phosphatase 48 U/L (38-126); Blood Urea Nitrogen 35 mg/dl (7-17); Calcium 8.4 mg/dl (8.4-10.2); Carbon Dioxide 32 mmol/L (22-30); Chloride 100 mmol/L (98-107); Glucose 62 mg/dl (70-99); Magnesium 1.9 mg/dl (1.6-2.3); Potassium 4.1 mmol/L (3.5-5.1); Sodium 136 mmol/L (135-145); Total Bilirubin 0.3 mg/dl (0.2-1.3); eGFR > 60.00
== END ==
LOC: OLABWHC 09:32
PROVIDERS: ATTENDING PHYSICIAN Family Medicine
DX: I10 Essential (primary) hypertension (principal); E83.49 Other disorders of magnesium metabolism; E87.1 Hypo-osmolality and hyponatremia
CPT/HCPCS: 36415; 80053; 83735; 85027

== ENCOUNTER 2024-08-25 07:32 | Outpatient (RCR) | payer SELFPAY | END 2024-08-25 11:00 | disposition home or self-care (01) | LOC: ROT 07:32 | PROVIDERS: ATTENDING PHYSICIAN Family Medicine | DX: Z02.4 Encounter for examination for driving license (principal) ==

== ENCOUNTER → 2024-11-17 13:59 | Outpatient (REF) | payer MEDICARE, SELFPAY ==
[2024-11-17 17:44] LABS: Hematocrit 41.7 % (37.0-47.0); Hemoglobin 13.1 g/dL (12.0-16.0); Mean Corp Hgb Conc. 31.4 g/dL (33.0-37.0); Mean Corpuscular Volume 89.7 fL (81.0-99.0); Platelet Count 355 10^3/uL (130-400); Red Cell Dist. Width 14.6 % (11.5-14.5)
[2024-11-17 18:13] LABS: ALT (SGPT) 25 U/L (0-35); AST (SGOT) 27 U/L (14-36); Albumin 4.2 g/dl (3.5-5.0); Alkaline Phosphatase 71 U/L (38-126); Blood Urea Nitrogen 17 mg/dl (7-17); Calcium 9.0 mg/dl (8.4-10.2); Carbon Dioxide 30 mmol/L (22-30); Chloride 99 mmol/L (98-107); Glucose 125 mg/dl (70-99); Iron 41 ug/dl (37-170); Potassium 4.0 mmol/L (3.5-5.1); Sodium 136 mmol/L (135-145); Total Protein 6.8 g/dl (6.3-8.2); eGFR > 60.00
[2024-11-17 18:22] LABS: Total Iron Binding Capacity 461 ug/dl (265-497)
[2024-11-17 19:00] LABS: Vitamin B12 937 pg/ml (239-931)
== END ==
LOC: REG 13:59
PROVIDERS: ATTENDING PHYSICIAN Family Medicine
DX: D50.0 Iron deficiency anemia secondary to blood loss (chronic) (principal); I50.32 Chronic diastolic (congestive) heart failure; E61.1 Iron deficiency; E53.8 Deficiency of other specified B group vitamins
CPT/HCPCS: 36415; 80053; 82607; 83540; 83550; 85027

== ENCOUNTER 2025-02-14 16:46 | Inpatient (IN) | payer MEDICARE, SELFPAY ==
[2025-02-14] VITALS (12 sets, daily range): BP systolic 104–166; BP diastolic 65–122; BMI 26.2; BMI 23.1
--- NOTE | 2025-02-14 11:09 | ED.GENMED ---
History of Present Illness
<Julieta Tay PA-C - Last Filed: 02/14/25 13:25>
General
Chief Complaint: Cardiac Symptoms
Time Seen by Provider: 02/14/25 10:34
History of Present Illness
History of Present Illness:
Jimena is an 84-year-old female with past medical history of CHF, hypertension, NSTEMI who presents with several days of shortness of breath. She was seen by cardiology yesterday who increased her diuretic but when symptoms improved she is not.
Had been measuring her pulse ox at home and this she was in 80s. Daughter thought that she was cyanotic with concern. She denies any chest pain, nausea. Does endorse the edema is worse than baseline
Past History
<Julieta Tay PA-C - Last Filed: 02/14/25 13:25>
Past History
ED Past Medical History: Arrthythmia (Atrial fib) and Other (Hernia's Anemia. Emphysema, Ulcers)
ED Past Surgical History: None
Social History
Tobacco: Former smoker
Alcohol: Occasional
Personal:
Living: with family
Phy Exam
<Julieta Tay PA-C - Last Filed: 02/14/25 13:25>
General Physical Exam
General Presentation: well appearing and no apparent distress
General Skin: warm and dry
General Habitus: normal
General Mental: alert
General Hydration: appears well hydrated
ENT Exam
ENT Exam: EOMI, pharynx normal, neck supple and normocephalic
Eye Exam
Eye Exam: PERRL, cornea clear and conjunctiva normal
Cardiovascular Exam
Cardiovascular Exam: regular rate/rhythm, no edema, no murmur and normal peripheral pulses
Pulmonary Exam
Pulmonary Exam: lungs clear, no respiratory distress, no rales, no crackles, no rhonchi, no stridor, no wheezing and no cough
Breath Sounds: Crackles: left lower and right lower
Gastrointestinal Exam
Gastrointestinal Exam: normal bowel sounds, non tender, soft, no organomegaly, no pulsatile mass and non distended
Neurological Exam
Neurological Exam: alert, oriented x3, no motor deficits and speech normal
Musculoskeletal Exam
Musculoskeletal Exam: full ROM and edema (3+ pretibial edema)
Skin Exam
Skin Exam: normal color, warm/dry, no rash and no petechia
Psychiatric Exam
Psychiatric Exam: normal mood/affect
Course
<Julieta Tay PA-C - Last Filed: 02/14/25 13:25>
Orders/Labs/Results
Orders:
Orders
02/14/25 09:52
ECG [Electrocardiogram (*1)] Urgent
Reason for Study: Abnormal EKG
Other Reason for Exam: shortness of breath, chest discomfort
02/14/25 09:53
EKG- Treatment ONCE
02/14/25 10:48
CR Chest - 2 Views Urgent
Comment:
Reason For Exam: SOB
02/14/25 10:53
Complete Blood Count/With Diff Urgent
Comprehensive Metabolic Panel Urgent
Pro-BNP [NT-proBNP] Urgent
Troponin I Urgent
02/14/25 13:11
Bumetanide [Bumex] 1 mg IV NOW STA
Abnormal Lab Results
02/14/25
10:53
MCHC 30.7 L g/dL
(33.0-37.0)
RDW 17.9 H %
(11.5-14.5)
Absolute Lymphs (auto) 0.8 L 10^3/uL
(1.2-3.4)
Absolute Monos (auto) 0.9 H 10^3/uL
(0.1-0.6)
Lymphocytes % 11.3 L %
(20.5-51.1)
Monocytes % 11.9 H %
(1.7-9.3)
Sodium 134 L mmol/L
(135-145)
Chloride 93 L mmol/L
(98-107)
Carbon Dioxide 33 H mmol/L
(22-30)
BUN 20 H mg/dl
(7-17)
Glucose 127 H mg/dl
(70-99)
02/14/25 10:53
02/14/25 10:53
Vital Signs
Initial and Last Documented VS:
Initial Vital Signs
Temp Pulse Resp BP
36.6 C 120 16 147/86
02/14/25 09:47 02/14/25 09:47 02/14/25 09:47 02/14/25 09:47
Last Documented Vital Signs
Temp Pulse Resp BP Pulse Ox
36.6 C 90 23 137/89 98
02/14/25 09:47 02/14/25 12:45 02/14/25 12:45 02/14/25 12:00 02/14/25 12:45
Cuatelt;Sulaiman Valenzuela, DO - Last Filed: 02/14/25 13:11>
Orders/Labs/Results
Orders:
Orders
02/14/25 09:52
ECG [Electrocardiogram (*1)] Urgent
Reason for Study: Abnormal EKG
Other Reason for Exam: shortness of breath, chest discomfort
02/14/25 09:53
EKG- Treatment ONCE
02/14/25 10:48
CR Chest - 2 Views Urgent
Comment:
Reason For Exam: SOB
02/14/25 10:53
Complete Blood Count/With Diff Urgent
Comprehensive Metabolic Panel Urgent
Pro-BNP [NT-proBNP] Urgent
Troponin I Urgent
02/14/25 13:11
Bumetanide [Bumex] 1 mg IV NOW STA
Abnormal Lab Results
02/14/25
10:53
MCHC 30.7 L g/dL
(33.0-37.0)
RDW 17.9 H %
(11.5-14.5)
Absolute Lymphs (auto) 0.8 L 10^3/uL
(1.2-3.4)
Absolute Monos (auto) 0.9 H 10^3/uL
(0.1-0.6)
Lymphocytes % 11.3 L %
(20.5-51.1)
Monocytes % 11.9 H %
(1.7-9.3)
Sodium 134 L mmol/L
(135-145)
Chloride 93 L mmol/L
(98-107)
Carbon Dioxide 33 H mmol/L
(22-30)
BUN 20 H mg/dl
(7-17)
Glucose 127 H mg/dl
(70-99)
02/14/25 10:53
02/14/25 10:53
Vital Signs
Initial and Last Documented VS:
Initial Vital Signs
Temp Pulse Resp BP
36.6 C 120 16 147/86
02/14/25 09:47 02/14/25 09:47 02/14/25 09:47 02/14/25 09:47
Last Documented Vital Signs
Temp Pulse Resp BP Pulse Ox
36.6 C 90 23 137/89 98
02/14/25 09:47 02/14/25 12:45 02/14/25 12:45 02/14/25 12:00 02/14/25 12:45
<Julieta Tay PA-C - Last Filed: 02/14/25 13:25>
MDM/Problems Addressed
Differential Diagnosis Includes:
CBC unremarkable CBC unremarkable. BMP with mild hyponatremia that appears baseline for patient. Troponin negative. proBNP 3120. Chest x-ray obtained and shows top normal pulmonary vascularity, mild cardiomegaly and mild bibasilar opacities
likely related to atelectasis and tiny pleural effusions. Patient lists Lasix as an allergy and reports that she gets no rash. Spoke with cardiology who recommends Bumex as an alternative agent. 1 mg of Bumex ordered. Patient remains on 2 L
nasal cannula to maintain adequate oxygen saturation. Continues to rest comfortably without any increase in respiratory effort. Given this is likely she is having CHF exacerbation and the hospitalist has agreed to admit her for further treatment.
<Julieta Tay PA-C - Last Filed: 02/14/25 13:25>
*Pulse Oximetry
SaO2: 100
Nasal Cannula flow liters per minute: 100
Oxygen Mode of Delivery: Room air
Patient hypoxic: no
*Critical Care Note
Total Time (30-74mins, 75-104mins- exclusive of procedures): Not Applicable
ED Attending Note
<Julieta Tay PA-C - Last Filed: 02/14/25 13:25>
-
Portions of this chart may have been created with voice recognition software.� Occasional wrong word or��sound alike� substitutions may have occurred due to the inherent limitations of voice recognition software.
<Sulaiman Valenzuela, - Last Filed: 02/14/25 13:11>
ED Attending Note
Patient seen and examined by attending physician: Yes
ED Attending Note:
I have reviewed and agree with history treatment plan by Julieta Tay PA-C. My exam revealed
Physical Exam
General: Appears uncomfortable, afebrile
Neck: supple. no meningeal signs. normal posterior pharynx
Heart: s1/s2 regular rate and rhythm, no murmur. equal radial
pulses.
HEENT: Pupils equal round reactive to light, EOMI
Lungs: Mild respiratory distress. Rales bilaterally
Abdomen: normal bowel sounds. not tender. no CVAT
Neuro: alert and oriented. no focal neurological deficits cranial nerves II through XII intact
Skin: no rash
Psychiatric: well kept. interactive and cooperative
Extremities: Bilateral tibial edema. no calf tenderness. negative homans. good distal pulses
84-year-old female with CHF exacerbation will start on Bumex due to Lasix allergy. Admit to hospitalist
Discharge Plan
Departure
Patient Disposition: Admit
Date of Disposition: 02/14/25
Time of Disposition: 13:18
Admit to: Telemetry
Presentation/result/management discussed w/ accepting MD/DO: Hospitalist
Patient with high blood pressure during this ER visit?: Yes
Condition: Fair
Discharge Problem:
Acute exacerbation of CHF (congestive heart failure)
Prescriptions:
No Action
Tums 300 mg (750 mg) Tablet,Chewable
300 mg PO DAILY
omeprazole 40 mg Capsule,Delayed Release(Dr/Ec)
40 mg PO DAILY
acetaminophen [Tylenol Extra Strength] 500 mg Tablet
500 mg PO Q6HPRN PRN (Reason: mild pain)
WesTab Max 2.5-25-2 mg Tablet
1 tab PO DAILY 30 Days Qty: 30 0RF
Eliquis 2.5 mg Tablet
2.5 mg PO BID
ethacrynic acid 25 mg Tablet
50 mg PO DAILY Qty: 30 0RF
melatonin 5 mg Tablet
5 mg PO HS PRN (Reason: insomnia)
benzonatate 100 mg Capsule
200 mg PO TIDPRN PRN (Reason: cough) Qty: 9 0RF
prednisone 10 mg tablet
See Taper PO DIRECTED Qty: 300 0RF
Taper: Prednisone DC Starting at 40 mg daily
40 mg Daily for 3 Days and 0 Hour
30 mg Daily for 3 Days and 0 Hour
20 mg Daily for 3 Days and 0 Hour
10 mg Daily for 3 Days and 0 Hour
benzonatate 100 mg Capsule
100 mg PO TIDPRN PRN (Reason: cough) 5 Days Qty: 14 0RF
aspirin 81 mg Tablet,Chewable
81 mg PO DAILY 30 Days Qty: 30 0RF
guaifenesin 600 mg Tablet Extended Release 12hr
600 mg PO Q12 5 Days Qty: 10 0RF
famotidine 40 mg Tablet
20 mg PO DAILY Qty: 0 0RF
Kaopectate (bismuth subsalicy) 262 mg Tablet
524 mg PO DAILY PRN (Reason: Gastrointestinal Issue) Qty: 0 0RF
Referrals:
Kt Lee MD [Family Provider, Family Practice]
Interventions
Interventions:
*General Assessment Last Done: 02/14/25 10:37
*ED COVID-19 Vaccine History Last Done: 02/14/25 10:37
*ED Influenza Vaccine History Last Done: 02/14/25 10:37
[facility] Fall Risk Assessment Tool Last Done: 02/14/25 10:37
*Risk Screen - Suicide (C-SSRS) Last Done: 02/14/25 10:37
ED- Cardiac Assessment Last Done: 02/14/25 10:37
ED- Pulmonary Assessment Last Done: 02/14/25 10:37
Discharge Date and Time
Print Language: TANZANIAN
[2025-02-14 11:13] LABS: Hematocrit 43.6 % (37.0-47.0); Hemoglobin 13.4 g/dL (12.0-16.0); Mean Corp Hgb Conc. 30.7 g/dL (33.0-37.0); Mean Corpuscular Volume 88.3 fL (81.0-99.0); Nucleated Red Blood Cells % 0 %; Platelet Count 323 10^3/uL (130-400); Red Cell Dist. Width 17.9 % (11.5-14.5)
[2025-02-14 11:33] LABS: Troponin I 0.014 ng/ml
[2025-02-14 11:39] LABS: ALT (SGPT) 26 U/L (0-35); AST (SGOT) 29 U/L (14-36); Albumin 3.8 g/dl (3.5-5.0); Alkaline Phosphatase 59 U/L (38-126); Blood Urea Nitrogen 20 mg/dl (7-17); Calcium 8.7 mg/dl (8.4-10.2); Carbon Dioxide 33 mmol/L (22-30); Chloride 93 mmol/L (98-107); Estimated Creatinine Clearance 40 ml/min; Glucose 127 mg/dl (70-99); Sodium 134 mmol/L (135-145); Total Protein 6.5 g/dl (6.3-8.2); eGFR > 60.00
[2025-02-14 12:07] LABS: Potassium 3.6 mmol/L (3.5-5.1)
[2025-02-14] MEDS: BUMEX 1 MG IV (13:23)
--- NOTE | 2025-02-14 15:23 | W.PN.UPDATE ---
Update Note
Progress Note Update
This note serves as an addendum to the H&P by granulator tender Amilcar ARIAS
HPI
84F
PHX chr HFpEF, HX Lasix allergy, on Ethacrynic acid PRN , on Spironolactone Prx AF, Non obstructive CAD hypertension, NSTEMI
- pw several days of shortness of breath.
- seen by cardiology yesterday who increased her diuretic but when symptoms improved she is not.
- pulse ox at home and this she was in 80s.
- Daughter thought that she was cyanotic with concern.
- denies any chest pain, nausea. Does endorse the edema is worse than baseline
s/p Bumex severe hrs ago and tolerated well
Relevant VS
Vital Signs
Temp Pulse Resp BP Pulse Ox
97.9 F 100 18 104/86 100
02/14/25 09:47 02/14/25 15:00 02/14/25 15:00 02/14/25 14:00 02/14/25 15:00
PE
Gen: NAD, not ttoxic
HEENT: anicteric
Neck: supple
Lungs:CTA
Cor: Irregular , soft SM
Abdomen:�soft NT , NG , NRT
[employer] PREPARATION: AA, poor short term memeory
MS: b/l PHILLIP 2-3 plus pitting edema
Psych: Nl affect
Relevant data�
07/21/24 02/14/25
15:30 10:53
WBC 7.3
Hgb 13.4
Plt Count 323
Sodium 134 L
Potassium 3.6
Chloride 93 L
Carbon Dioxide 33 H
BUN 20 H
Creatinine 0.8
eGFR > 60.00
Troponin I 0.014
Rff-R-Baofrzveedl Pept 900 3120
CXR:
Pulmonary vascularity at least top normal.
Mild cardiomegaly, unchanged.
Mild bibasilar opacity most likely representing combination of subsegmental atelectasis and tiny pleural effusions.
07/22/24 CC- Non obstructive CA'
Last hospitalist admission: 07/21/24 - 07/27/24
PDX:
Acute hypoxia, bronchitis, Takotsubo's cardiomyopathy
ASSESSMENT & PLAN
Acute on chr HFpEF
Associated acute hypoxic RI
Expanded vol.
HX allergy to Lasix and sulfa, so on ethacrynic acid and Aldactone as outpatient.
Of note: - SGLT2i unaffordable per last record
- IV Bumex at ER
- daily wt and daily BMP
- CBC acrd consulted
Paroxysmal a flutter/a fib - rate controlled.
- Eliquis 2.5 mg BID f
- Intrinsically rate-controlled.
Cognitive impairment, probably unspecified dementia
Essential HTN
GERD
DVT Px: Eliquis
Code: DNR per daughter
IP TLM
--- NOTE | 2025-02-14 15:45 | CON.CAR ---
Addendum entered and electronically signed by Jim Cuadra MD 02/14/25 17:13:
I reviewed and agree with the note by GRETCHEN and it accurately reflects our care.
I saw and evaluated the patient, and I provided the substantive portion of the medical decision making. My assessment and plan is below:
84-year-old female with persistent atrial fibrillation on Eliquis, HFpEF, and mild to moderate tricuspid regurgitation who presents with subacute shortness of breath, weight gain, and LE edema, concerning for CHF exacerbation.
Physical exam: Irregular rate/rhythm, no murmur, 2+ pitting edema to knees bilaterally, decreased breath sounds at the bases
Labs notable for BNP 3120
Acute on chronic HFpEF: Continue IV diuresis with daily Bumex. She has a reported Lasix allergy. Continue spironolactone. SGLT2 inhibitor reportedly cost prohibitive.
Persistent atrial fibrillation: Continue Eliquis. If her weight persists above 60 kg, we will need to increase her to 5 mg twice daily.
Original Note:
Consultation
Consultation Request
Date/Time Consultation Requested: 02/14/25 1543
Date/Time Consultation Performed: 02/14/25 1545
Requesting Provider: Abigail BAE
Performing Provider: Alannah GODINEZ for Dr. Cuadra
Reason for Consultation: CHF
Medical History
-
Chief Complaint: SOB
History of Present Illness:
84 y/o female (patient of Dr. Schaefer) with Afib/flutter on Eliquis, HFpEF, HTN, mild to moderate TR, pulmonary HTN, hyponatremia, and iron deficient anemia. She also has some memory impairment. She is here for SOB. She reports it has been present
for several days. There has been increased LE edema. No cough. Weight was 136 at OV 02/03/25 and currently 143 lbs in ER, but seems to typically be lower on review of records this year. Ethacrynic acid is PRN and she reportedly has been taking it
for the past few days. She has been given IV Bumex with good response. Her main complaint currently is abdominal pain.
Past Medical History
Past Medical History: Arrhythmias, CHF and Other (as above)
Social History
Tobacco: Non-Smoker
Family History
Family History: Reviewed & Not Pertinent
Allergies / Home Medications
Allergy/AdvReac Type Severity Reaction Status Date / Time
furosemide (From Lasix) Allergy Rash Verified 02/14/25 09:52
Iodinated Contrast Media Allergy Unknown Verified 02/14/25 09:52
Penicillins Allergy Swelling Verified 02/14/25 09:52
shellfish derived Allergy Unknown Verified 02/14/25 09:52
Sulfa (Sulfonamide Allergy Swelling Verified 02/14/25 09:52
Antibiotics)
�Medication �Instructions �Recorded �Confirmed �Type
acetaminophen 500 mg tablet 500 mg PO Q6HPRN PRN mild pain 10/09/23 02/14/25 History
(Tylenol Extra Strength)
calcium carbonate (Tums) 300 mg PO DAILY PRN 10/09/23 02/14/25 History
Gastrointestinal Issue
omeprazole 40 mg capsule,delayed 40 mg PO HS Gastrointestinal Issue 10/09/23 02/14/25 History
release
apixaban 2.5 mg tablet (Eliquis) 2.5 mg PO BID Blood Clot 03/22/24 02/14/25 History
Prevention/Tx
melatonin 5 mg tablet 5 mg PO HS PRN insomnia 07/18/24 02/14/25 History
Iron 25 mg PO DAILY 02/14/25 02/14/25 History
bismuth subsalicylate 262 mg 0 mg PO .SEE BELOW PRN 02/14/25 02/14/25 History
tablet (Kaopectate (bismuth Gastrointestinal Issue
subsalicylate))
cyanocobalamin (vitamin B-12) 1,000 mcg PO DAILY 02/14/25 02/14/25 History
1,000 mcg tablet
ethacrynic acid 25 mg tablet 25 mg PO DAILYPRN PRN weight 02/14/25 02/14/25 History
gain/edema/underwood
folic acid 800 mcg tablet 0.8 mg PO DAILY 02/14/25 02/14/25 History
spironolactone 25 mg tablet 25 mg PO DAILY 02/14/25 02/14/25 History
Review of Systems
-
History Source: Patient
All other systems: Negative unless noted
Constitutional: Weight Gain
Respiratory: Trouble Breathing
Physical Exam
Vital Signs
Temp Pulse Resp BP Pulse Ox
97.9 F 100 18 104/86 100
02/14/25 09:47 02/14/25 15:00 02/14/25 15:00 02/14/25 14:00 02/14/25 15:00
Lab Results
02/14/25 10:53
02/14/25 10:53
Troponin I 0.014 ng/ml 02/14/25 10:53
Svq-Y-Pewmsirobzu Pept 3120 pg/ml 02/14/25 10:53
Physical Exam
General: Well Developed
HEENT: Normocephalic and Anicteric
Respiratory: Crackles (b/l bases)
GI: Tender and Distended
Genito-urinary: Clear Urine
Musculoskeletal: Edema (mild BLE edema)
Skin: Warm and Dry
Neuro: Awake and Alert
Psych: Calm
Impression / Plan
-
Jwxzb-ox-tkqppso HFpEF:
-BNP elevated 3120, rales to b/l bases, weight gain (was 136 lbs in office 11 days ago, but prior to that was much lower?), and BLE edema
-Echo 07/23/24: Normal biventricular size and systolic function without regional wall motion abnormality. Mild to moderate tricuspid regurgitation.
-Listed as Lasix allergy. She tolerated dose of IV Bumex. Agree with IV Bumex, which requires intensive monitoring.
-continue spironolactone
-previous note suggests SGLT2I cost prohibitive
AFIB/flutter(type unknown): seems to be persistent
-has been rate-controlled without meds- monitor telemetry
-continue Eliquis for OAC- if weight consistent >60 kg despite diuresis, will need to increase dosing
Hypertension:
-elevated in ER
-on MRA
-monitor with IV diuresis
Abdominal pain:
-distended and tender- discussed with hospitalist team who is starting with bladder scan
Data Reviewed
-
EKG: Tracing Personally Visualized and interpreted
Radiology: Report Reviewed by me (CXR: Pulmonary vascularity at least top normal. Mild cardiomegaly, unchanged. Mild bibasilar opacity most likely representing combination of subsegmental atelectasis and tiny pleural effusions.)
Medical Tests (Nuc Med, Echo etc): Report Reviewed by me (echo as noted)
Labs: Labs Reviewed by me
--- NOTE | 2025-02-14 15:47 | HPS.HSE ---
Family Physician
-
Family Physician: Kt Lee
Chief Complaint
-
Shortness of Breath, Edema and Weight Gain
History of Present Illness
Patient is an 84 y/o female past medical history of chronic heart failure, and atrial fibrillation/flutter who presents with shortness of breath, lower extremity edema and weight gain. Additional history obtained from patient's daughter in law at
the bedside. Patient started with symtpoms several days ago. Typically patient takes ethacrynic acid only as needed which DIL gave to the patient the last three days without any improvement in patient's symtpoms. DIL notes patient is up about 5
lbs compared to her dry weights.
Medical History
Past Medical History
Past Medical History: Reports Other
Additional Past Medical History:
Chronic HFpEF
Permanent Atrial Fibrillation / Flutter
GERD
Cognitive Impairment (short term memory loss)
Past Surgical History: Reports Other
Additional Past Surgical History:
Bowel Resection
Social History
Tobacco: Non-smoker
Drug: None
Family History
Family History: Not pertinent
Allergies / Home Medications
Allergies reflects when Allergies were last updated in [facility].
Home Medications with original date entered in [facility]
Allergy/Medication List:
Allergies
Allergy/AdvReac Type Severity Reaction Status Date / Time
furosemide (From Lasix) Allergy Rash Verified 02/14/25 09:52
Iodinated Contrast Media Allergy Unknown Verified 02/14/25 09:52
Penicillins Allergy Swelling Verified 02/14/25 09:52
shellfish derived Allergy Unknown Verified 02/14/25 09:52
Sulfa (Sulfonamide Allergy Swelling Verified 02/14/25 09:52
Antibiotics)
Home Medications
acetaminophen 500 mg tablet (Tylenol Extra Strength) 500 mg PO Q6HPRN PRN mild pain 10/09/23
calcium carbonate (Tums) 300 mg PO DAILY PRN Gastrointestinal Issue 10/09/23
omeprazole 40 mg capsule,delayed release 40 mg PO HS Gastrointestinal Issue 10/09/23
apixaban 2.5 mg tablet (Eliquis) 2.5 mg PO BID Blood Clot Prevention/Tx 03/22/24
melatonin 5 mg tablet 5 mg PO HS PRN insomnia 07/18/24
Iron 25 mg PO DAILY 02/14/25
bismuth subsalicylate 262 mg tablet (Kaopectate (bismuth subsalicylate)) 0 mg PO .SEE BELOW PRN Gastrointestinal Issue 02/14/25
cyanocobalamin (vitamin B-12) 1,000 mcg tablet 1,000 mcg PO DAILY 02/14/25
ethacrynic acid 25 mg tablet 25 mg PO DAILYPRN PRN weight gain/edema/underwood 02/14/25
folic acid 800 mcg tablet 0.8 mg PO DAILY 02/14/25
spironolactone 25 mg tablet 25 mg PO DAILY 02/14/25
Review of Systems
-
Unable to obtain full review of systems at this time due to: Other (Patient is unreliable historian due to cognitive impairment)
A 12 point ROS was completed and negative except as noted: Yes
Constitutional: Denies Fever
Respiratory: Reports Trouble Breathing
Cardiac: Denies Chest Pain
Physical Exam
Vital Signs
Vital Signs
Temp Pulse Resp BP Pulse Ox
97.9 F 100 18 161/112 99
02/14/25 09:47 02/14/25 15:30 02/14/25 15:30 02/14/25 15:21 02/14/25 15:30
Physical Exam
General: Comfortable and Conversant
HEENT: Anicteric, Moist mucous membranes and Oxygen (Nasal Cannula)
Respiratory: Wheezes (Diffuse Expiratory) and Rales (Bilateral bases)
Cardiac: S1/S2 and Irregular Rhythm
GI: Soft and Non Tender
Rectal: Deferred by Provider
Genito-urinary: Clear Urine
Musculoskeletal: No Clubbing, No Cyanosis and Other (+3 pitting edema bilateral lower extremities)
Skin: Warm and Dry
Neuro: Awake, Alert and No Motor Deficits
Psych: Calm and Other (Forgetful)
Laboratory Results
-
02/14/25 10:53
02/14/25 10:53
Laboratory Results
Total Bilirubin 0.4 mg/dl (0.2-1.3) 02/14/25 10:53
AST 29 U/L (14-36) 02/14/25 10:53
ALT 26 U/L (0-35) 02/14/25 10:53
Alkaline Phosphatase 59 U/L (38-126) 02/14/25 10:53
Troponin I 0.014 ng/ml 02/14/25 10:53
Data Reviewed
-
Lab Data: Labs Reviewed by me
Old Records: Reviewed
Impression/Plan
-
Acute Hypoxic Respiratory Insufficiency secondary to Acute Heart Failure
-Continue supplemental oxygen
-Attempt to wean prior to discharge
Acute on Chronic HFpEF
-Consult Cardiology
-Continue Bumex 1mg IV Daily
-Continue spironolactone
-Monitor Is&Os and Daily Weights
Permanent Atrial Fibrillation / Flutter
-Continue Eliquis for anticoagulation
Cognitive Impairment (short-term memory loss)
-Monitor for mood/behavior changes during hospitalization
DVT proph: Eliquis
Code Status: DNR
[2025-02-14] MEDS: TYLENOL 650 MG PO (18:37)
[2025-02-14] MEDS: ANESTHETIC LOZENGE 1 LOZENGE PO (20:30)
[2025-02-14] MEDS: ELIQUIS 2.5 MG PO (20:30)
[2025-02-14] MEDS: MELATONIN 5 MG PO (20:31)
[2025-02-15] VITALS (7 sets, daily range): BP systolic 93–137; BP diastolic 53–85; BMI 23.4
[2025-02-15] MEDS: TYLENOL 650 MG PO ×2 (05:18→20:35)
[2025-02-15 07:02] LABS: Hematocrit 40.8 % (37.0-47.0); Hemoglobin 12.3 g/dL (12.0-16.0); Mean Corp Hgb Conc. 30.1 g/dL (33.0-37.0); Mean Corpuscular Volume 89.9 fL (81.0-99.0); Platelet Count 268 10^3/uL (130-400); Red Cell Dist. Width 17.6 % (11.5-14.5)
[2025-02-15 07:23] LABS: Blood Urea Nitrogen 17 mg/dl (7-17); Calcium 8.2 mg/dl (8.4-10.2); Chloride 91 mmol/L (98-107); Estimated Creatinine Clearance 42 ml/min; Glucose 85 mg/dl (70-99); Magnesium 1.4 mg/dl (1.6-2.3); Potassium 3.4 mmol/L (3.5-5.1); Sodium 138 mmol/L (135-145); eGFR > 60.00
--- NOTE | 2025-02-15 07:31 | W.PN.HOSP.TC ---
Today's Communication/Plan
-
increase bumex per cadio
replete mag, k
PT/OT
Assessment / Plan
Assessment / Plan
#Acute on Chronic HFpEF
-Cardiology following
- Bumex was increased to 2 mg twice daily (history of Lasix allergy)
- previous note suggests SGLT2I cost prohibitive
- Continue spironolactone
- Monitor Is&Os and Daily Weights(fluctuating weight on different readings)
#Acute Hypoxic Respiratory Insufficiency secondary to Acute Heart Failure
-Continue supplemental oxygen ; now down to 3 L via nasal cannula
-Attempt to wean prior to discharge
#Permanent Atrial Fibrillation / Flutter
-Continue Eliquis for anticoagulation
#Hypomagnesemia
- replete
# Hypokalemia
- Replete with po kcl 40meq
#Hypertension:
-elevated in ER
-on diurectics
#Cognitive Impairment (short-term memory loss)
-Monitor for mood/behavior changes during hospitalization
DVT proph: Eliquis
Code Status: DNR
Anticipated Discharge: Within 24 hours
Subjective/Interval History
-
Date of Service: February 15, 2025
Afebrile. Soft blood pressure. Other vitals remained stable
Objective Data
-
Labs:
Laboratory Results
02/15/25
06:22
WBC 6.8
Hgb 12.3
Hct 40.8
Plt Count 268
Sodium 138
Potassium 3.4 L
Chloride 91 L
Carbon Dioxide Pending
BUN 17
Creatinine 0.8
Glucose 85
Calcium 8.2 L
Vital Signs:
Vital Signs
Temp Pulse Resp BP Pulse Ox
98.2 F 77 16 110/53 98
02/15/25 02:51 02/15/25 02:51 02/15/25 02:51 02/15/25 02:51 02/15/25 02:51
I&O
02/14/25 02/15/25 02/16/25
06:59 06:59 06:59
Intake Total 480 / 480
Output Total 2350 / 2350
Balance -2350 / -2350 480 / 480
Review of Systems
-
History Source: Patient
All other systems: Reviewed and negative
Physical Exam
-
General: Well Developed and No Apparent Distress
HEENT: Normocephalic and Atraumatic
Respiratory: Crackles (Fine), Decreased Breath Sounds (Right lower) and Other (On 3 L O2 via nasal cannula)
Cardiac: S1/S2; Negative Murmur
GI: Soft and Nontender
Musculoskeletal: Edema, Right Lower Extrem and Edema, Left Lower Extrem
Skin: Warm
Neuro: Awake, Alert and Oriented
Psych: Calm
Data Reviewed
-
Diagnostic Radiology: Report Reviewed by me, Discussed with Physician and Discussed with Patient
Labs: Labs Reviewed by me, Discussed with Physician and Discussed with Patient
[2025-02-15] MEDS: BUMEX 1 MG IV (07:53)
[2025-02-15] MEDS: ALDACTONE 25 MG PO (07:54)
[2025-02-15] MEDS: ELIQUIS 2.5 MG PO ×2 (07:54→20:24)
[2025-02-15] MEDS: FOLVITE 1 MG PO (07:54)
[2025-02-15 08:58] LABS: Carbon Dioxide 38 mmol/L (22-30)
--- NOTE | 2025-02-15 09:49 | W.PN.CD ---
Today's Communication / Plan
-
- Will increase Bumex 1 mg IV daily to 2 mg IV BID
Impression / Plan
-
PCP Kt Lee MD
Card Eyad Schaefer MD
Ijxpl-bt-eiraqiq HFpEF:
- Highest pBNP Feb 2024 at 11,800. Best pBNP 900
- BNP elevated 3120, rales to b/l bases, weight gain (was 136 lbs in office 11 days ago, but prior to that was much lower?), and BLE edema
- Weight in office 61.8 kg. But at cath weight 51.3 kg with good LVEDP
- Admit weight 65 kg (ER), on floor 59.15 kg
- Today 02/15/2025: 59.96 kg
- IV Bumex (reported Lasix allergy)
- continue spironolactone
- previous note suggests SGLT2I cost prohibitive
- Will increase Bumex 1 mg IV daily to 2 mg IV BID
AFib and typcial atrial flutter, persistent
- First seen June 2024. Known to be in sinus Feb 2024
- has been rate-controlled without meds- monitor telemetry
- continue Eliquis for OAC- if weight consistent >60 kg despite diuresis, will need to increase dosing
Hypertension:
-elevated in ER
-on MRA
-monitor with IV diuresis
Abdominal pain:
-distended and tender- discussed with hospitalist team who is starting with bladder scan
Mentation
- Seems confused
Subjective: Dyspnea not at baseline
Data:
CXR 02/14/2025:
IMPRESSION:
Pulmonary vascularity at least top normal.
Mild cardiomegaly, unchanged.
Mild bibasilar opacity most likely representing combination of subsegmental atelectasis and tiny pleural effusions.
Echo 07/23/24: Normal biventricular size and systolic function without regional wall motion abnormality. Mild to moderate tricuspid regurgitation.
Cath 07/22/2024:
CONCLUSIONS
1. Right dominant circulation with a 30% lesion in the mid LAD and luminal irregularities in the RCA but no occlusive coronary artery disease.
2. Focal, severe hypokinesis/akinesis of the mid septum without corresponding coronary lesion, consistent with Takotsubo variant versus focal myocarditis versus infiltrative/inflammatory process (sarcoidosis) and preserved systolic function, LVEF =
55-60%.
3. Top normal to mildly elevated filling pressures (LVEDP = 14 mmHg at 51.3 kg).
Physical Exam
Vital Signs/Labs
Vital Signs
Temp Pulse Resp BP Pulse Ox
97.3 F 76 16 102/53 98
02/15/25 07:45 02/15/25 07:45 02/15/25 07:45 02/15/25 07:45 02/15/25 07:45
02/14/25 02/15/25 02/16/25
06:59 06:59 06:59
Actual Weight 59.959 kg
02/15/25 06:22
02/15/25 06:22
Magnesium 1.4 mg/dl (1.6-2.3) L 02/15/25 06:22
02/14/25
10:53
Luw-G-Uozsbhcborh Pept 3120
LAB Results
02/14/25
10:53
Troponin I 0.014
Physical Exam
Constitutional: No acute distress
EENT: Anicteric
Cardiovascular: Rhythm/rate is irregular and S1S2 is normal
Respiratory: Respiratory effort normal and Lungs clear to auscul.
GI: Soft and Distention absent
Neuro/Psych: AO x 3
Data Reviewed
-
Date of Service: February 15, 2025
[2025-02-15] MEDS: ANESTHETIC LOZENGE 1 LOZENGE PO (11:42)
[2025-02-15] MEDS: MAGNESIUM SULFATE 50 IV (12:58)
[2025-02-15] MEDS: KCL 40 MEQ PO (12:58)
--- NOTE | 2025-02-15 14:55 | PN.CDI ---
CDI
- -
CDI:
Physician Documentation Request
Admit Date: 02/14/25 16:46
Dear Doctor Tabatha,
Patient is admitted with heart failure. History of atrial fibrillation .
H&P states 'permanent atrial fibrillation'
02/14 hospitalist update note refers to the atrial fibrillation as paroxysmal.
Cardiology notes as 'persistent'
In an attempt to clarify potentially conflicting documentation, please clarify the type of atrial fibrillation:
Paroxysmal atrial fibrillation - terminates spontaneously or with intervention within 7 days of onset
Persistent atrial fibrillation - episodes of continuous AF that last more than 7 days and do not self-terminate
Permanent atrial fibrillation - when a decision has been made to accept the presence of AF and there is no further attempt to restore or maintain sinus rhythm
Other - please specify
Use of terms such as suspected, likely, concern for, or probable (associated with a specific diagnosis that is being evaluated, monitored, or treated as if it exists) are acceptable and can be coded in the inpatient setting, when documented at the
time of discharge.
Thank you,
Renee Ramos RN, BSN
CDI Specialist
tiger text
Please use your independent medical judgment in providing your response.
--- NOTE | 2025-02-15 14:59 | PN.CDI ---
CDI
- -
CDI:
Physician Documentation Request
Admit Date: 02/14/25 16:46
Dear Doctor Tabatha,
Progress notes include a diagnosis of Acute Hypoxic Respiratory Insufficiency secondary to Acute Heart Failure.
ED record states patient presented with shortness of breath. 'Had been measuring her pulse ox at home and this she was in 80s.'
Respiratory rate 16-29 on presentation. Patient at that time was on 6 l and now on 3L.
Please clarify which of the following accurately represents the patient's respiratory status:
Acute respiratory failure - please clarify type
Hypoxia
Other
Additional information for Respiratory Failure:
Recognized criteria for Respiratory Failure (Source: Laura Briceño. 2019 January 13.
Documentation tips: Acute Respiratory Failure, The Hospitalist.)
ABGs: (1 or more) Symptoms Please indicate type if known
1. p)2 <60 or RA SPO2 <91% on RA 1. Tachypnea, SOB, dyspnea Hypoxic
2. pCO2 >45 and pH <7.35 2. Use of accessory muscles Hypercapnic
3. pO2 decrease of pCO2 increase by 3. Pallor or cyanosis Hypoxic and Hypercapnic
10 mmHg from baseline if known 4. Anxiety or restlessness Unable to determine
4. P/F Ratio (pO2/FiO2)nless than 300 5. Unable to speak in full sentences
Use of terms such as suspected, likely, concern for, or probable (associated with a specific diagnosis that is being evaluated, monitored, or treated as if it exists) are acceptable and can be coded in the inpatient setting, when documented at the
time of discharge.
Thank you,
Renee Ramos RN, BSN
CDI Specialist
tiger text
Please use your independent medical judgment in providing your response.
--- NOTE | 2025-02-15 16:03 | CM ---
patient seen at bedside
IA completed
spoke with Mita MARRERO/ARMAAN [phone]
Dx: heart failure
Lives alone in a 2 story home, 2 [address], flight of stairs to bedroom/bathroom, powder room on 1st floor
PLOF: Independent, no assistive device used
DME: Walker, cane
Has had [facility] in past
PT/OT to eval
PCP: tK Lee
Pharmacy: [facility]
Plan: Await PT/OT JULIO barbour to follow for needs
[2025-02-15] MEDS: BUMEX 2 MG IV (16:28)
[2025-02-15] MEDS: MELATONIN 5 MG PO (20:35)
[2025-02-16] VITALS (8 sets, daily range): BP systolic 102–143; BP diastolic 54–91; PULSE 81–86; O2SAT 95–97; BMI 23.2
[2025-02-16] MEDS: TYLENOL 650 MG PO (00:45)
--- NOTE | 2025-02-16 02:26 | PTCARENOTE ---
Pt. wants to brush teeth in the morning.
--- NOTE | 2025-02-16 07:06 | W.PN.HOSP.TC ---
Today's Communication/Plan
-
continue iv bumex 2mg bid for now
check covid and flu
cm consult for dispo.
Assessment / Plan
Assessment / Plan
#Acute on Chronic HFpEF
-Cardiology following
- Bumex was increased to 2 mg twice daily (history of Lasix allergy)
- previous note suggests SGLT2I cost prohibitive
- Continue spironolactone
- Monitor Is&Os and Daily Weights(fluctuating weight on different readings)
# sore throat
- check covid and flu
#Acute Hypoxic Respiratory Insufficiency secondary to Acute Heart Failure
-Continue supplemental oxygen ; now down to 3 L via nasal cannula
-Attempt to wean prior to discharge
#persistent Atrial Fibrillation / Flutter
-Continue Eliquis for anticoagulation
#Hypomagnesemia
- now wnl
# Hypokalemia
- Replete with po kcl 40meq again
#Hypertension:
-elevated in ER
-on diurectics
#Cognitive Impairment (short-term memory loss)
-Monitor for mood/behavior changes during hospitalization
DVT proph: Eliquis
Code Status: DNR
Dispo: snf
Anticipated Discharge: Within 24 hours
Subjective/Interval History
-
Date of Service: February 16, 2025
Afebrile. Continues to remain on 3 L O2 via nasal cannula, soft blood pressure readings. States that her leg swelling is significantly improved. Reports that since last night she feels that she has a sore throat and sore nose. Denies any cough
or fevers.
Objective Data
-
Labs:
Laboratory Results
02/16/25
06:45
WBC Pending
Hgb Pending
Hct Pending
Plt Count Pending
Sodium Pending
Potassium Pending
Chloride Pending
Carbon Dioxide Pending
BUN Pending
Creatinine Pending
Glucose Pending
Calcium Pending
Vital Signs:
Vital Signs
Temp Pulse Resp BP Pulse Ox
98.1 F 91 16 102/59 97
02/16/25 03:00 02/16/25 03:00 02/16/25 03:00 02/16/25 03:00 02/16/25 03:00
I&O
02/15/25 02/16/25 02/17/25
06:59 06:59 06:59
Intake Total 1560 / 1560
Output Total 2350 / 2350
Balance -2350 / -2350 1560 / 1560
Review of Systems
-
History Source: Patient
EENT: Reports Sore Throat
Respiratory: Denies Cough or Trouble Breathing
Physical Exam
-
General: Well Developed and No Apparent Distress
HEENT: Normocephalic and Atraumatic
Respiratory: Crackles (Fine), Decreased Breath Sounds (Right lower) and Other (On 3 L O2 via nasal cannula)
Cardiac: S1/S2; Negative Murmur
GI: Soft and Nontender
Musculoskeletal: Edema, Right Lower Extrem and Edema, Left Lower Extrem
Skin: Warm
Neuro: Awake, Alert and Oriented
Psych: Calm
Data Reviewed
-
Labs: Labs Reviewed by me, Discussed with Physician and Discussed with Patient
[2025-02-16 07:07] LABS: Hematocrit 39.1 % (37.0-47.0); Hemoglobin 12.2 g/dL (12.0-16.0); Mean Corp Hgb Conc. 31.2 g/dL (33.0-37.0); Mean Corpuscular Volume 90.9 fL (81.0-99.0); Platelet Count 273 10^3/uL (130-400); Red Cell Dist. Width 17.1 % (11.5-14.5)
[2025-02-16 07:23] LABS: Blood Urea Nitrogen 17 mg/dl (7-17); Calcium 8.3 mg/dl (8.4-10.2); Chloride 88 mmol/L (98-107); Estimated Creatinine Clearance 42 ml/min; Glucose 89 mg/dl (70-99); Magnesium 1.6 mg/dl (1.6-2.3); Potassium 3.4 mmol/L (3.5-5.1); Sodium 136 mmol/L (135-145); eGFR > 60.00
[2025-02-16 07:45] LABS: Carbon Dioxide 45 mmol/L (22-30)
[2025-02-16] MEDS: ALDACTONE 25 MG PO (08:42)
[2025-02-16] MEDS: KCL 40 MEQ PO (08:43)
[2025-02-16] MEDS: BUMEX 2 MG IV ×2 (08:44→16:50)
[2025-02-16] MEDS: FOLVITE 1 MG PO (08:44)
[2025-02-16] MEDS: ELIQUIS 2.5 MG PO ×2 (08:44→20:28)
--- NOTE | 2025-02-16 09:48 | W.PN.CD ---
Today's Communication / Plan
-
- Continue Bumex 2 mg IV BID.
- Dry weight is likely about 51 kg.
Impression / Plan
-
PCP Kt Lee MD
Card Eyad Schaefer MD
Pbcss-lq-sfiroiq HFpEF:
- Highest pBNP Feb 2024 at 11,800. Best pBNP 900
- BNP elevated 3120, rales to b/l bases, weight gain (was 136 lbs in office 11 days ago, but prior to that was much lower?), and BLE edema
- Weight in office 61.8 kg. But at cath weight 51.3 kg with good LVEDP
- Admit weight 65 kg (ER), on floor 59.15 kg
- Today 02/15/2025: 59.96 kg.
- IV Bumex (reported Lasix allergy)
- Continue spironolactone.
- previous note suggests SGLT2I cost prohibitive
- Continue Bumex 2 mg IV BID.
- Dry weight is likely about 51 kg.
AFib and typcial atrial flutter, persistent
- First seen June 2024. Known to be in sinus Feb 2024
- Intrinsically rate-controlled.
- Continue Eliquis 2.5 mg BID.
Hypertension:
-elevated in ER
-Now controlled; continue current management.
Abdominal pain:
-Management as per primary hospitalist team.
Data:
CXR 02/14/2025:
IMPRESSION:
Pulmonary vascularity at least top normal.
Mild cardiomegaly, unchanged.
Mild bibasilar opacity most likely representing combination of subsegmental atelectasis and tiny pleural effusions.
Echo 07/23/24: Normal biventricular size and systolic function without regional wall motion abnormality. Mild to moderate tricuspid regurgitation.
Cath 07/22/2024:
CONCLUSIONS
1. Right dominant circulation with a 30% lesion in the mid LAD and luminal irregularities in the RCA but no occlusive coronary artery disease.
2. Focal, severe hypokinesis/akinesis of the mid septum without corresponding coronary lesion, consistent with Takotsubo variant versus focal myocarditis versus infiltrative/inflammatory process (sarcoidosis) and preserved systolic function, LVEF =
55-60%.
3. Top normal to mildly elevated filling pressures (LVEDP = 14 mmHg at 51.3 kg).
Physical Exam
Vital Signs/Labs
Vital Signs
Temp Pulse Resp BP Pulse Ox
98.6 F 84 16 112/74 96
02/16/25 07:30 02/16/25 08:44 02/16/25 07:30 02/16/25 08:44 02/16/25 07:30
02/15/25 02/16/25 02/17/25
06:59 06:59 06:59
Actual Weight 59.959 kg 59.477 kg
02/16/25 06:45
02/16/25 06:45
Magnesium 1.6 mg/dl (1.6-2.3) 02/16/25 06:45
02/14/25
10:53
Cqg-F-Jxltqovnbcu Pept 3120
LAB Results
02/14/25
10:53
Troponin I 0.014
Physical Exam
Constitutional: No acute distress and Comfortable
EENT: Anicteric
Cardiovascular: Rhythm/rate is irregular, Pedal edema present (Trace), Systolic murmur present (03/01) and S1S2 is normal
Respiratory: Respiratory effort normal and Crackles Present (Bibasilar)
GI: Soft
Neuro/Psych: AO x 3
Other: Skin (Warm, dry, intact)
Data Reviewed
-
Date of Service: February 16, 2025
EKG: Tracing Personally Visualized and interpreted (Telemetry: A-fib)
Labs: Labs Reviewed by me
--- NOTE | 2025-02-16 14:13 | CM ---
Addendum entered by Wilner Farley 02/16/25 15:26:
[facility] can accept patient tomorrow. Requesting transport for around 3pm
Updated hospitalist, requested COVID test
Updated daughter, Mita
Patient remains on 3L O2, will need ambulance transport if continues on O2. Transport forms on chart
IMM verbally reviewed, copy on chart
[facility]
Report: [phone]

Plan: D/c to [facility] tomorrow
Original Note:
Chart reviewed. Per hospitalist, still on IV diuretic, possibly ready for discharge tomorrow the earliest
Therapy rec SNF. Discussed w/ patient's daughter, agreeable to SNF. Patient was at [facility] before, daughter identified [facility] and [facility] as additional options but prefers [facility]
Referrals sent in [facility]
Plan: SNF
[2025-02-16 18:09] LABS: COVID-19 Antigen Negative (Negative)
[2025-02-17] VITALS (7 sets, daily range): BP systolic 93–123; BP diastolic 53–69; BMI 22.9
[2025-02-17] MEDS: MELATONIN 5 MG PO ×2 (00:43→23:36)
[2025-02-17] MEDS: TYLENOL 650 MG PO ×2 (02:30→18:17)
--- NOTE | 2025-02-17 07:11 | W.PN.HOSP.TC ---
Addendum entered and electronically signed by Chapo Goodwin MD 02/17/25 15:09:
Adjust diagnosis
Permanent atrial fibrillation -rate control monitor
Acute hypoxic respiratory failure -was requiring 6 L oxygen at one point, need has came down
Original Note:
Today's Communication/Plan
-
continue iv diuretics
anticipate dc tomorrow
Assessment / Plan
Assessment / Plan
#Acute on Chronic HFpEF
-Cardiology following
- Bumex was increased to 2 mg twice daily by cardio (history of Lasix allergy)
- previous note suggests SGLT2I cost prohibitive
- Continue spironolactone
- Monitor Is&Os
- weight has come down to 58.6 lg (59.4 yesterday) ( it was 51kg in 06/2024 ; cardio recommended continuing iv diuretics for another day at least
# sore throat
- resolved ;likely due to dry air
- covid and flu negative
#Acute Hypoxic Respiratory Insufficiency secondary to Acute Heart Failure
-Continue supplemental oxygen ; now down to 2 L via nasal cannula
-can be weaned in SNF
#persistent Atrial Fibrillation / Flutter
-Continue Eliquis for anticoagulation
#Hypomagnesemia
- now wnl
# Hypokalemia
-
#Hypertension:
-elevated in ER
-on diurectics
#Cognitive Impairment (short-term memory loss)
-Monitor for mood/behavior changes during hospitalization
DVT proph: Eliquis
Code Status: DNR
Dispo: [facility]- [facility]
Anticipated Discharge: Within 24 hours
Subjective/Interval History
-
Date of Service: February 17, 2025
Afebrile. Soft blood pressure readings. Patient offers no new complaints. States that she is feeling fine today
Objective Data
-
Labs:
Laboratory Results
02/17/25
06:00
WBC Pending
Hgb Pending
Hct Pending
Plt Count Pending
Sodium Pending
Potassium Pending
Chloride Pending
Carbon Dioxide Pending
BUN Pending
Creatinine Pending
Glucose Pending
Calcium Pending
Vital Signs:
Vital Signs
Temp Pulse Resp BP Pulse Ox
98.3 F 90 16 116/69 98
02/17/25 02:53 02/17/25 02:53 02/17/25 02:53 02/17/25 02:53 02/17/25 02:53
I&O
02/16/25 02/17/25 02/18/25
06:59 06:59 06:59
Intake Total 1560 / 1560 480 / 480
Balance 1560 / 1560 480 / 480
Review of Systems
-
History Source: Patient
All other systems: Reviewed and negative
Physical Exam
-
General: Well Developed and No Apparent Distress
HEENT: Normocephalic and Atraumatic
Respiratory: Clear to Auscultation and Other (On 2 L O2 via nasal cannula)
Cardiac: S1/S2; Negative Murmur
GI: Soft and Nontender
Musculoskeletal: Edema, Right Lower Extrem and Edema, Left Lower Extrem
Skin: Warm
Neuro: Awake, Alert and Oriented
Psych: Calm
Data Reviewed
-
Labs: Labs Reviewed by me, Discussed with Physician and Discussed with Patient
[2025-02-17] MEDS: FOLVITE 1 MG PO (08:35)
[2025-02-17] MEDS: BUMEX 2 MG IV ×2 (08:36→16:33)
[2025-02-17] MEDS: ALDACTONE 25 MG PO (08:36)
[2025-02-17] MEDS: ELIQUIS 2.5 MG PO ×2 (08:36→20:01)
--- NOTE | 2025-02-17 10:30 | W.PN.CD ---
Today's Communication / Plan
-
- Continue IV Bumex for diuresis at this time.
- Keep K> 4.0 and Mg >2.0
Impression / Plan
-
PCP Kt Lee MD
Card Eyad Schaefer MD
Eemfn-ii-vtvddai HFpEF:
- Highest pBNP Feb 2024 at 11,800. Best pBNP 900
- BNP elevated 3120, rales to b/l bases, weight gain (was 136 lbs in office 11 days ago, but prior to that was much lower?), and BLE edema
- Weight in office 61.8 kg. But at cath weight 51.3 kg with good LVEDP
- Admit weight 65 kg (ER), on floor 59.15 kg
- Today 58.6 kg.
- IV Bumex (reported Lasix allergy)
- Continue spironolactone.
- previous note suggests SGLT2I cost prohibitive
- Continue Bumex 2 mg IV BID.
- Dry weight of 51 kg - appears not obtainable at this time. We will try to achieve weight of 56 to 57 kg before discharge.
AFib and typcial atrial flutter, persistent
- First seen June 2024. Known to be in sinus Feb 2024
- Intrinsically rate-controlled.
- Continue Eliquis 2.5 mg BID.
Hypertension:
-elevated in ER
-Now controlled; continue current management.
Abdominal pain:
-Management as per primary hospitalist team.
Data:
CXR 02/14/2025:
IMPRESSION:
Pulmonary vascularity at least top normal.
Mild cardiomegaly, unchanged.
Mild bibasilar opacity most likely representing combination of subsegmental atelectasis and tiny pleural effusions.
Echo 07/23/24: Normal biventricular size and systolic function without regional wall motion abnormality. Mild to moderate tricuspid regurgitation.
Cath 07/22/2024:
CONCLUSIONS
1. Right dominant circulation with a 30% lesion in the mid LAD and luminal irregularities in the RCA but no occlusive coronary artery disease.
2. Focal, severe hypokinesis/akinesis of the mid septum without corresponding coronary lesion, consistent with Takotsubo variant versus focal myocarditis versus infiltrative/inflammatory process (sarcoidosis) and preserved systolic function, LVEF =
55-60%.
3. Top normal to mildly elevated filling pressures (LVEDP = 14 mmHg at 51.3 kg).
Physical Exam
Vital Signs/Labs
Vital Signs
Temp Pulse Resp BP Pulse Ox
98 F 84 16 108/64 97
02/17/25 07:59 02/17/25 07:59 02/17/25 07:59 02/17/25 08:00 02/17/25 07:59
02/16/25 02/17/25 02/18/25
06:59 06:59 06:59
Actual Weight 59.477 kg 58.604 kg
Magnesium 1.6 mg/dl (1.6-2.3) 02/16/25 06:45
02/14/25
10:53
Ttw-E-Nqxrvxrfvdj Pept 3120
LAB Results
02/14/25
10:53
Troponin I 0.014
Physical Exam
Constitutional: No acute distress and Comfortable
EENT: Anicteric and Moist mucous membranes
Cardiovascular: JVD pressure is normal, Rhythm/rate is irregular, Pedal edema present (1+-much improved), JVD present and Systolic murmur present
Respiratory: Respiratory effort normal and Lungs clear to auscul.
GI: Non tender and Normal bowel sounds
Neuro/Psych: Alert and Oriented
Data Reviewed
-
Date of Service: February 17, 2025
Medical Decision Making: Reviewed Test Results, Test Interpretation and Review of Case with other Provider
EKG: Tracing Personally Visualized and interpreted
Echo: Report Reviewed by me
Labs: Labs Reviewed by me
Old Records: Reviewed
[2025-02-17 10:32] LABS: Hematocrit 47.5 % (37.0-47.0); Hemoglobin 14.5 g/dL (12.0-16.0); Mean Corp Hgb Conc. 30.5 g/dL (33.0-37.0); Mean Corpuscular Volume 89.5 fL (81.0-99.0); Platelet Count 332 10^3/uL (130-400); Red Cell Dist. Width 17.5 % (11.5-14.5)
[2025-02-17 10:36] LABS: Blood Urea Nitrogen 17 mg/dl (7-17); Calcium 8.7 mg/dl (8.4-10.2); Chloride 80 mmol/L (98-107); Estimated Creatinine Clearance 37 ml/min; Glucose 89 mg/dl (70-99); Potassium 3.9 mmol/L (3.5-5.1); Sodium 134 mmol/L (135-145); eGFR > 60.00
--- NOTE | 2025-02-17 10:54 | PTCARENOTE ---
The patient is AAOx3 TUNUNAK and has been deemed high fall risk. pt on IV diuretics urgency and stress incontence with impusivity. At baseline pt is independent from home without any ambulatory aid. Currently Pt has a fall risk sign at door, round trip
sign at door, bed alarm, chair alarm and yellow bracelet on. The patient was educated about our fall risk and fall precautions protocol. The patient is aware that she was found to be a high risk for fall. the patient verbalized to me that she would
call me before getting oob or back by herself. She has called me x1 appropriately and another time she got her self back to bed . Pt currently has her call ford in her hand. Her area is cleaned and clutter removed and hourly rounds continued.
[2025-02-17 10:56] LABS: Carbon Dioxide 47 mmol/L (22-30)
--- NOTE | 2025-02-17 11:15 | CM ---
patient seen at bedside
per the hospitalist patient to discharge tomorrow now
updated dtr Mita
LM with Jailyn liaison at [facility]
Left message with Yuli in the SNF
will need to repeat covid test
[facility] tomorrow 02/18
Report: [phone]

transportation forms on chart
[2025-02-17] MEDS: KCL 20 MEQ PO (11:54)
[2025-02-18 03:00] VITALS: BP 105/59
[2025-02-18 03:44] VITALS: BMI 21.4
[2025-02-18 07:21] LABS: Blood Urea Nitrogen 25 mg/dl (7-17); Calcium 8.3 mg/dl (8.4-10.2); Chloride 83 mmol/L (98-107); Estimated Creatinine Clearance 37 ml/min; Glucose 84 mg/dl (70-99); Potassium 3.4 mmol/L (3.5-5.1); Sodium 133 mmol/L (135-145); eGFR > 60.00
[2025-02-18 07:40] VITALS: BP 104/64
[2025-02-18 07:41] LABS: Carbon Dioxide 45 mmol/L (22-30)
--- NOTE | 2025-02-18 09:15 | W.PN.HOSP.TC ---
Addendum entered and electronically signed by Chapo Goodwin MD 02/18/25 13:16:
I saw and evaluated the patient. I reviewed the resident�s note and agree with findings and plan as documented in the resident�s note.
1. Diastolic HF exacerbation -cardiology input noted, question of correct dry weight. Currently weight down 59 kg from admission weight of 65 kg (likely wrong weight). Chest x-ray showing small right-sided effusion. On exam patient have some
crackles at day 1. Lower extremity swelling is almost resolved. Echocardiogram from June reviewed and patient with preserved ejection fraction. Patient is allergic to furosemide currently on Bumex. Patient weight of 54 kg today. Close to
presumed dry weight of 51 kg. Cardiology recommended switching patient to oral Bumex at discharge
2. Acute hypoxic respiratory failure - on 2L NC satting 98%, home o2 evaluation to assess need in rehab
3. Essential HTN - some hypo-tension today, patient blood pressure soft after morning Aldactone dose. If symptomatic in any way will require dose decreasing
4. Permanent Afib and typical atrial flutter -maintained on Eliquis 2-1/2 mg twice daily. Rate controlled without any medication
Discharge to short term rehab
Original Note:
Today's Communication/Plan
-
Discharged to SNF today
Bumex 2 mg p.o. daily
Discontinue at the clinic visit per cardiology
Continue Aldactone, continue Eliquis 2.5 mg twice daily
BMP in 1 week
Assessment / Plan
Assessment / Plan
#Acute on Chronic HFpEF
-Cardiology following
- Bumex was switched from IV to p.o.
- previous note suggests SGLT2I cost prohibitive
- Continue spironolactone
- Monitor Is&Os
- weight has come down to 54.7.6 lg (58 yesterday) ( it was 51kg in 06/2024) ; seems like this is her new baseline
# sore throat
- resolved ;likely due to dry air
- covid and flu negative
#Acute Hypoxic Respiratory failure likely secondary to Acute Heart Failure
-Continue supplemental oxygen ; now down to 2 L via nasal cannula
-can be weaned in SNF ; Home O2 assessment before discharge
# Permanent Atrial Fibrillation / Flutter
-Continue Eliquis for anticoagulation
#Hypomagnesemia
- now wnl
# Hypokalemia
-Replete
#Hypertension:
-elevated in ER
-on diurectics
#Cognitive Impairment (short-term memory loss)
-Monitor for mood/behavior changes during hospitalization
DVT proph: Eliquis
Code Status: DNR
[facility]po[facility]
Anticipated Discharge: Today
Subjective/Interval History
-
Date of Service: February 18, 2025
Afebrile. Soft blood pressure readings. Offers no new complaints.
Objective Data
-
Labs:
Laboratory Results
02/18/25
06:16
Sodium 133 L
Potassium 3.4 L
Chloride 83 L
Carbon Dioxide 45 H
BUN 25 H
Creatinine 0.9
Glucose 84
Calcium 8.3 L
Vital Signs:
Vital Signs
Temp Pulse Resp BP Pulse Ox
98.4 F 85 17 100/60 95
02/18/25 10:54 02/18/25 10:54 02/18/25 10:54 02/18/25 10:54 02/18/25 10:54
I&O
02/17/25 02/18/25 02/19/25
06:59 06:59 06:59
Intake Total 480 / 480 1320 / 1320
Balance 480 / 480 1320 / 1320
Review of Systems
-
History Source: Patient
All other systems: Reviewed and negative
Physical Exam
-
General: Well Developed and No Apparent Distress
HEENT: Normocephalic and Atraumatic
Respiratory: Clear to Auscultation and Other (On 2 L O2 via nasal cannula)
Cardiac: S1/S2; Negative Murmur
GI: Soft and Nontender
Musculoskeletal: Edema, Right Lower Extrem and Edema, Left Lower Extrem
Skin: Warm
Neuro: Awake, Alert and Oriented
Psych: Calm
Data Reviewed
-
Labs: Labs Reviewed by me, Discussed with Physician, Discussed with Patient and Discussed with Family
--- NOTE | 2025-02-18 10:02 | W.PN.CD ---
Today's Communication / Plan
-
transition to bumex 2mg PO daily
will no longer be on ethacrynic acid
continue aldactone 25mg daily, eliquis 2.5mg bid
discharge planning with BMP in one week
please call us with additional questions
Impression / Plan
-
PCP Kt Lee MD
Card Eyad Schaefer MD
Xshan-tm-nijznne HFpEF: improved s/p IV bumex
- Highest pBNP Feb 2024 at 11,800. Best pBNP 900
- BNP elevated 3120, rales to b/l bases, weight gain (was 136 lbs in office 11 days ago, but prior to that was much lower?), and BLE edema
- Weight in office 61.8 kg. But at cath weight 51.3 kg with good LVEDP
- Admit weight 65 kg (ER), now looks euvolemic at 54-55kg
- Continue spironolactone 25mg daily
- previous note suggests SGLT2I cost prohibitive
- transition to bumex 2mg PO daily
AFib and typcial atrial flutter, persistent
- First seen June 2024. Known to be in sinus Feb 2024
- Intrinsically rate-controlled.
- Continue Eliquis 2.5 mg BID.
Hypertension:
-elevated in ER
-Now controlled; continue current management.
Data:
CXR 02/14/2025:
IMPRESSION:
Pulmonary vascularity at least top normal.
Mild cardiomegaly, unchanged.
Mild bibasilar opacity most likely representing combination of subsegmental atelectasis and tiny pleural effusions.
Echo 07/23/24: Normal biventricular size and systolic function without regional wall motion abnormality. Mild to moderate tricuspid regurgitation.
Cath 07/22/2024:
CONCLUSIONS
1. Right dominant circulation with a 30% lesion in the mid LAD and luminal irregularities in the RCA but no occlusive coronary artery disease.
2. Focal, severe hypokinesis/akinesis of the mid septum without corresponding coronary lesion, consistent with Takotsubo variant versus focal myocarditis versus infiltrative/inflammatory process (sarcoidosis) and preserved systolic function, LVEF =
55-60%.
3. Top normal to mildly elevated filling pressures (LVEDP = 14 mmHg at 51.3 kg).
Physical Exam
Vital Signs/Labs
Vital Signs
Temp Pulse Resp BP Pulse Ox
98.1 F 77 17 104/64 98
02/18/25 07:40 02/18/25 07:40 02/18/25 07:40 02/18/25 07:40 02/18/25 07:40
02/17/25 02/18/25 02/19/25
06:59 06:59 06:59
Actual Weight 58.604 kg 54.749 kg
02/17/25 09:18
02/18/25 06:16
Magnesium 1.6 mg/dl (1.6-2.3) 02/16/25 06:45
02/14/25
10:53
Tsb-O-Mwpknbufpqf Pept 3120
Physical Exam
Constitutional: No acute distress and Comfortable
EENT: Moist mucous membranes
Cardiovascular: Rhythm & rate is regular, Pedal edema is absent, JVD pressure is normal and Systolic murmur present
Respiratory: Respiratory effort normal and Lungs clear to auscul.
Neuro/Psych: AO x 3
Data Reviewed
-
Date of Service: February 18, 2025
EKG: Other (Tele: A )
Labs: Labs Reviewed by me
[2025-02-18] MEDS: BUMEX 2 MG PO (10:43)
[2025-02-18] MEDS: ELIQUIS 2.5 MG PO (10:43)
[2025-02-18] MEDS: FOLVITE 1 MG PO (10:43)
[2025-02-18] MEDS: ALDACTONE 25 MG PO (10:43)
[2025-02-18] MEDS: KCL 40 MEQ PO (10:44)
[2025-02-18 10:54] VITALS: BP 100/60
[2025-02-18] MEDS: BUMEX IV (10:56)
--- NOTE | 2025-02-18 11:58 | CM ---
JULIO spoke with Jailyn at [facility] SN[facility]-patient discharge today
would like 3pm transport
IMM in chart
PLAN: [facility] 02/18
Report: [phone]

transportation forms on chart
--- NOTE | 2025-02-18 13:23 | W.DCSUMMARY ---
Discharge Summary
Discharge Data
Date of Admission: 02/14/25
Date of Discharge: 02/18/25
-
Pending Results: No
Hospital Course
Discharging Physician : Shoaib Mays MD ; Chapo Goodwin MD
Disposition : SNF; [facility]
Primary care physician : Kt Lee
Principal Discharge diagnosis : Acute on Chronic HFpEF exacerbation, acute hypoxic respiratory insufficiency
Chronic Discharge diagnosis : Permanent A-fib, essential hypertension, cognitive impairment
Hospital Course :
Ms. Dominguez is an 83-year-old female with medical history of HFpEF, A-fib (on Eliquis), GERD, pulmonary hypertension, hyponatremia, mild to moderate TR presented with shortness of breath and bilateral lower extremity edema.
Given her history of heart failure cardiology was consulted she was started on IV Bumex initially at 1 mg but later increased to 2 mg twice daily by the cardiology team.
Her other medications including spironolactone was continued. Her daily weights were monitored, which trended down and on the day of discharge her weight was down to 54.7 kg. When she was presented it was 65 kg in the emergency.
Her medications for A-fib, GERD will continue during her hospital stay
Periodic labs showed her hemoglobin remained stable. Electrolytes with sodium of 133 however she has a history of chronic hyponatremia. She had couple of episodes of hypokalemia when the potassium was 3.4 however it was repleted and increased to
3.9.
The day of discharge her BUN was slightly elevated to 25 which could be result of IV diuresis and early signs of showing that there is adequate diuresis and now she is euvolemic and possibly 54.7 is her new dry weight.
She complained of some sore throat during the hospital stay and COVID and flu both came back negative her sore throat resolved on its own.
Chest x-ray was obtained as well which showed increased pulmonary vascularity likely secondary to her acute heart failure exacerbation. She required supplemental oxygen initially at 6 L however it tapered down to 2 L. It can be weaned off at the
rehab.
On the day of discharge her Bumex was converted from IV to p.o. She was instructed to take Bumex 2 mg p.o. daily. She was recommended to continue Aldactone 25 mg daily, Eliquis 2.5 mg twice daily. She was advised to discontinue ethacrynic acid.
She may continue/resume other home supplements.
At time of hospital discharge she was medically stable [facility]
Important imaging findings : CXR 02/14/25
IMPRESSION:
Pulmonary vascularity at least top normal.
Mild cardiomegaly, unchanged.
Mild bibasilar opacity most likely representing combination of subsegmental atelectasis and tiny pleural effusions.
Procedure findings : EKG was done on 02/14/2025 which showed atrial fibrillation with RVR
Discharge Plan
-
Patient Disposition: Half-Way/SNF
Discharge Diagnosis/Procedures: Acute on Chronic HFpEF exacerbation, acute hypoxic respiratory insufficiency
Condition: Fair
Diet: Low Fat
Activity: No restrictions and As tolerated
Driving Restrictions: As prior to admission
Bathing Restrictions: None
Blood Work: BMP in 1 week
Other Services: PT and OT
Instructions: *CBC Heart Failure Instructions
Referrals:
Eyad Schaefer MD [Active, Cardiology] - 03/10/25 1:00 pm
Referral Note: Note that this appt is at the [facility] in [place].
Kt Lee MD [Family Provider, Family Practice] - in less than 1 week
Additional Discharge Medication Instructions: Take Bumex (bumetanide) 2mg by mouth once daily
Discontinue ethacrynic acid
Follow up with pcp in 1 week
follow up with road supervisor of engines on 03/10/25 at 1:00pm
Blood work: BMP in 1 week
Prescriptions:
New
bumetanide 1 mg Tablet
2 mg PO DAILY Qty: 0 0RF
Continued
Tums 300 mg (750 mg) Tablet,Chewable
300 mg PO DAILY PRN (Reason: Gastrointestinal Issue)
omeprazole 40 mg Capsule,Delayed Release(Dr/Ec)
40 mg PO HS
acetaminophen [Tylenol Extra Strength] 500 mg Tablet
500 mg PO Q6HPRN PRN (Reason: mild pain)
Eliquis 2.5 mg Tablet
2.5 mg PO BID
melatonin 5 mg Tablet
5 mg PO HS PRN (Reason: insomnia)
cyanocobalamin (vitamin B-12) 1,000 mcg Tablet
1,000 mcg PO DAILY
spironolactone 25 mg Tablet
25 mg PO DAILY
folic acid 800 mcg Tablet
0.8 mg PO DAILY
Iron
25 mg PO DAILY
Kaopectate (bismuth subsalicy) 262 mg tablet
0 mg PO .SEE BELOW PRN (Reason: Gastrointestinal Issue)
Patient Comments:
02/14/2025, per pt.'s hnkwcsjv-pw-vap, pt. takes this med. several times a day, often forgetting last dose and then taking more.
Discontinued
ethacrynic acid 25 mg tablet
25 mg PO DAILYPRN PRN (Reason: weight gain/edema/CAMARGO)
Discharge Orders:
Discharge Patient (As Directed); Ordered 02/18/25
Ordered By: Shoaib Mays
Discharge Date and Time
Print Language: [place] IR[place]
[2025-02-18 15:19] VITALS: BP 125/80
== END 2025-02-18 16:40 | DRG 291 ==
LOC: 3 WEST ACU 16:46
PROVIDERS: Physician Assistant Medical; ADMITTING PHYSICIAN Internal Medicine; ATTENDING PHYSICIAN Hospitalist; CONSULT PHYSICIAN Student in an Organized Health Care Education/Training Program; EMERGENCY PHYSICIAN Emergency Medicine; FAMILY PHYSICIAN Family Medicine
DX: I11.0 Hypertensive heart disease with heart failure (principal); I50.33 Acute on chronic diastolic (congestive) heart failure; J96.01 Acute respiratory failure with hypoxia; E87.1 Hypo-osmolality and hyponatremia; I48.21 Permanent atrial fibrillation; I48.92 Unspecified atrial flutter; D50.9 Iron deficiency anemia, unspecified; K21.9 Gastro-esophageal reflux disease without esophagitis; I27.20 Pulmonary hypertension, unspecified; I25.10 Atherosclerotic heart disease of native coronary artery without angina pectoris; J43.9 Emphysema, unspecified; E87.6 Hypokalemia; E83.42 Hypomagnesemia; J02.9 Acute pharyngitis, unspecified; Z60.2 Problems related to living alone; Z66 Do not resuscitate; I25.2 Old myocardial infarction; Z87.891 Personal history of nicotine dependence; Z88.8 Allergy status to other drugs, medicaments and biological substances; Z91.041 Radiographic dye allergy status; Z91.013 Allergy to seafood; Z79.82 Long term (current) use of aspirin; Z79.01 Long term (current) use of anticoagulants; Z79.52 Long term (current) use of systemic steroids; Z88.0 Allergy status to penicillin; Z88.2 Allergy status to sulfonamides; Z79.899 Other long term (current) drug therapy; Z11.52 Encounter for screening for COVID-19
CPT/HCPCS: 71046; 80048; 80053; 83735; 83880; 84443; 84484; 85025; 85027; 87502; 87811; 93005; 96374; 97110; 97162; 97167; 97530; 99285